=== PATIENT | female | born 1955 ===

== ENCOUNTER 2019-11-30 10:21 | Outpatient (REF) | payer MEDICARE, MEDICAID, SELFPAY ==
--- NOTE | 2019-11-30 10:28 | EMG_ITS ---
Bilateral median and ulnar motor and sensory studies were performed. Bilateral radial sensory studies were performed and paraspinal muscles were tested. IMPRESSION: Mild right median neuropathy across carpal tunnel. Otherwise, this study was unremarkable with no evidence of radiculopathy. MD PUSHPA Chiang/JASON / [phone]
== END 2019-11-30 10:22 | disposition home or self-care (01) ==
LOC: HO.NEURO 10:21
PROVIDERS: PCP Internal Medicine; Visit Provider Internal Medicine
DX: R20.0 Anesthesia of skin (principal)
CPT/HCPCS: 95860; 95861; 95886; 95911

== ENCOUNTER → 2020-01-18 08:42 | Outpatient (BNVA) | payer MEDICARE, MEDICAID, SELFPAY | PROVIDERS: PCP Internal Medicine; Referring Provider Internal Medicine; Visit Provider Nurse Practitioner | DX: K59.04 Chronic idiopathic constipation (principal); K21.9 Gastro-esophageal reflux disease without esophagitis; M46.1 Sacroiliitis, not elsewhere classified; F17.210 Nicotine dependence, cigarettes, uncomplicated; Z79.899 Other long term (current) drug therapy; Z79.891 Long term (current) use of opiate analgesic | CPT/HCPCS: Q3014 ==

== ENCOUNTER 2020-03-04 08:02 | Outpatient (REF) | payer MEDICARE, MEDICAID, SELFPAY ==
--- NOTE | 2020-03-04 08:15 | ECG_ITS ---
Test Reason : CP UNSPECIFIED Blood Pressure : / mmHG Vent. Rate : 076 BPM Atrial Rate : 076 BPM P-R Int : 146 ms QRS Dur : 076 ms QT Int : 388 ms P-R-T Axes : 041 028 049 degrees QTc Int : 436 ms Normal sinus rhythm Normal ECG When compared with ECG of 28-JUN-2017 14:20, No significant change was found Referred By: Grazyna Mcgraw Electronically Signed By:Chris Fuller
[2020-03-04 09:04] LABS: Alanine Aminotransferase 21 U/L (0-31); Albumin Level 4.2 g/dL (3.5-5.0); Alkaline Phosphatase 84 U/L (39-117); Anion Gap 11 (12-20); Aspartate Amino Transferase 20 U/L (5-31); Bilirubin Total 0.4 mg/dL (0.0-1.0); Blood Urea Nitrogen 14 mg/dL (9-16); Calcium 8.8 mg/dL (8.4-10.2); Carbon Dioxide 30 mmol/L (22-29); Chloride 103 mmol/L (96-108); Cholesterol 244 mg/dL; Estimated Glomerular Filt Rate > 60; Glucose Fasting 97 mg/dL (60-99); HDL Cholesterol 60 mg/dL; LDL Cholesterol Calculated 144 mg/dl; Potassium 4.4 mmol/l (3.3-5.1); Sodium 140 mmol/L (135-145); Total Protein 6.7 g/dL (6.5-8.0); Triglycerides 203 mg/dL
== END 2020-03-04 08:03 | disposition home or self-care (01) ==
LOC: HO.LAB 08:02
PROVIDERS: Visit Provider Internal Medicine
DX: E78.5 Hyperlipidemia, unspecified (principal); R07.9 Chest pain, unspecified
CPT/HCPCS: 36415; 80053; 80061; 93005

== ENCOUNTER → 2020-04-09 08:57 | Outpatient (BNVA) | payer MEDICARE, MEDICAID, SELFPAY | PROVIDERS: PCP Internal Medicine; Visit Provider Nurse Practitioner | DX: Z13.89 Encounter for screening for other disorder (principal) | CPT/HCPCS: Q3014 ==

== ENCOUNTER 2020-05-23 10:02 | Outpatient (REF) | payer OTHER, SELFPAY ==
--- NOTE | ~2020-05-23 | MM_ITS ---
EXAMINATION: MM SCREENING DIGITAL BREAST TOMOSYNTHESIS, BILATERAL CLINICAL INFORMATION: Screening. Asymptomatic. The lifetime risk of breast cancer based on the Tyrer-Cuzick Model is 4%. COMPARISON: Mammography: 04/22/2019, 10/30/2017, 08/24/2016 TECHNIQUE: Digital breast tomosynthesis is performed in both the craniocaudal and mediolateral oblique views along with computer-aided detection (CAD). Synthesized 2D images are generated from the tomosynthesis. FINDINGS: There are scattered areas of fibroglandular density (ACR BI-RADS breast composition Category b). There are no significant masses, abnormal calcifications, or other abnormalities. Parenchymal pattern is similar to prior studies. No developing density. No significant changes. MM/MM tomosynthesis screening BI IMPRESSION: No mammographic evidence of malignancy. ASSESSMENT: BI-RADS 1: Negative RECOMMENDATION: Routine annual mammography screening. This patient's information was entered into a reminder system with a target due date for their next mammogram.
== END 2020-05-23 10:03 | disposition home or self-care (01) ==
LOC: HO.MAMMO 10:02
PROVIDERS: Visit Provider Internal Medicine
DX: Z12.31 Encounter for screening mammogram for malignant neoplasm of breast (principal)
CPT/HCPCS: 77063; 77067

== ENCOUNTER 2020-06-25 09:02 | Outpatient (REF) | payer OTHER, SELFPAY ==
[2020-06-25 10:21] LABS: Alanine Aminotransferase 13 U/L (0-31); Albumin Level 4.1 g/dL (3.5-5.0); Alkaline Phosphatase 77 U/L (39-117); Anion Gap 12 (12-20); Aspartate Amino Transferase 16 U/L (5-31); Bilirubin Total 0.4 mg/dL (0.0-1.0); Blood Urea Nitrogen 13 mg/dL (9-16); Calcium 8.9 mg/dL (8.4-10.2); Carbon Dioxide 28 mmol/L (22-29); Chloride 106 mmol/L (96-108); Cholesterol 228 mg/dL; Estimated Glomerular Filt Rate > 60; Glucose Fasting 99 mg/dL (60-99); HDL Cholesterol 59 mg/dL; LDL Cholesterol Calculated 133 mg/dl; Potassium 4.6 mmol/L (3.3-5.1); Sodium 141 mmol/L (135-145); Total Protein 6.7 g/dL (6.5-8.0); Triglycerides 183 mg/dL
[2020-06-30 13:37] LABS: Vitamin D 25-OH, D2 <4 ng/mL; Vitamin D 25-OH, D3 29 ng/mL; Vitamin D 25-OH, Total 29 ng/mL (30-100)
== END 2020-06-25 09:03 | disposition home or self-care (01) ==
LOC: HO.LAB 09:02
PROVIDERS: PCP Internal Medicine; Visit Provider Internal Medicine
DX: E78.5 Hyperlipidemia, unspecified (principal); E55.9 Vitamin D deficiency, unspecified
CPT/HCPCS: 36415; 80053; 80061; 82306

== ENCOUNTER 2020-07-30 08:15 | Outpatient (REF) | payer OTHER, SELFPAY ==
--- NOTE | ~2020-07-30 | XR_ITS ---
EXAMINATION: XR SHOULDER, RIGHT CLINICAL INFORMATION: Right shoulder pain. COMPARISON: Radiographs right shoulder 06/27/2019. TECHNIQUE: The right shoulder is imaged in 4 views. FINDINGS: There is no fracture or dislocation or destructive process. The glenohumeral joint is normal. There are no visible rotator cuff calcifications. There are borderline degenerative changes acromioclavicular joint. No erosive change. Acromioclavicular alignment normal. XR/XR shoulder RT min 2V IMPRESSION: Borderline degenerative changes acromioclavicular joint. No visible rotator cuff calcifications.
== END 2020-07-30 08:16 | disposition home or self-care (01) ==
LOC: HO.XRAY 08:15
PROVIDERS: PCP Internal Medicine; Visit Provider Internal Medicine
DX: M25.511 Pain in right shoulder (principal)
CPT/HCPCS: 73030

== ENCOUNTER 2020-07-31 13:07 | Outpatient (REF) | payer OTHER, SELFPAY ==
--- NOTE | ~2020-07-31 | XR_ITS ---
EXAMINATION: XR HIP, RIGHT CLINICAL INFORMATION: Pain COMPARISON: Previous x-ray September 2012 TECHNIQUE: Two views of the right hip. FINDINGS: Bone alignment is normal. No fracture or dislocation is seen. The soft tissues are unremarkable. There are postsurgical changes to the lower lumbar spine. XR/XR hip RT min 2V IMPRESSION: Normal-appearing right hip.
== END 2020-07-31 13:08 | disposition home or self-care (01) ==
LOC: HO.XRAY 13:07
PROVIDERS: PCP Internal Medicine; Visit Provider Internal Medicine
DX: M25.551 Pain in right hip (principal)
CPT/HCPCS: 73502

== ENCOUNTER 2020-09-03 12:42 | Outpatient (REF) | payer OTHER, SELFPAY ==
--- NOTE | ~2020-09-03 | XR_ITS ---
EXAMINATION: XR CERVICAL SPINE CLINICAL INFORMATION: Cervicalgia. COMPARISON: 02/16/2019 TECHNIQUE: 3 views of the cervical spine were obtained. FINDINGS: No abnormal prevertebral soft tissue swelling is seen. No acute cervical spine fracture. Disc spaces are maintained. There is normal alignment. XR/XR cervical spine 3V IMPRESSION: No significant cervical spine abnormality appreciated.
== END 2020-09-03 12:43 | disposition home or self-care (01) ==
LOC: HO.XRAY 12:42
PROVIDERS: PCP Internal Medicine; Visit Provider Nurse Practitioner Family
DX: M54.2 Cervicalgia (principal); G89.29 Other chronic pain; M19.019 Primary osteoarthritis, unspecified shoulder; M25.511 Pain in right shoulder; M54.16 Radiculopathy, lumbar region
CPT/HCPCS: 72040; 99202

== ENCOUNTER 2020-10-01 10:25 | Outpatient (REF) | payer OTHER, SELFPAY ==
--- NOTE | ~2020-10-01 | MR_ITS ---
EXAMINATION: MR LUMBAR SPINE WITHOUT CONTRAST CLINICAL INFORMATION: Radiculopathy, lumbar region. COMPARISON: None TECHNIQUE: MRI of the lumbar spine was obtained using routine sequences without contrast. FINDINGS: There are postoperative findings related to posterior decompression at L4-L5 and interbody fusion at L4-L5 and L5-S1. Posterior arthrodesis changes are also noted. The lumbar vertebral bodies maintain normal heights. The alignment appears preserved allowing for trace retrolisthesis of L2 on L3. The disc heights are maintained. There is mild to moderate dextroscoliotic curvature centered at the L2-L3 level where there is mild marrow edema along the left aspect of the endplates. The distal spinal cord appears normal. The conus medullaris terminates normally at the L1 level. The extraspinal soft tissues are within normal limits allowing for the operative changes. SPINAL LEVELS: L1-L2: No posterior disc abnormality. No spinal canal or neural foraminal stenosis. L2-L3: Minimal disc bulging with mild facet arthropathy. Mild narrowing of the left subarticular zone. Left foraminal protrusion contacts the traversing left L3 and exiting left L2 nerve root. L3-L4: Disc bulging with ligamentum flavum infolding moderate facet arthropathy. Mild spinal canal stenosis. Mild narrowing of the neural foramina without definite foraminal nerve root compression. L4-L5: Posterior decompression with interbody fusion. No spinal canal stenosis. Mild narrowing of the neural foramina without foraminal nerve root compression. L5-S1: Interbody fusion. No spinal canal or significant neural foraminal stenosis. MR/MR lumbar spine wo con IMPRESSION: Posterior decompression changes seen at L4-L5 and interbody fusion seen at L4-L5 and L5-S1. No significant narrowing of the spinal canal. At L2-L3 there is left-sided subarticular/foraminal protrusion which contacts the traversing left L3 and exiting left L2 nerve roots. Additional milder spondylotic changes are noted above.
== END 2020-10-01 10:26 | disposition home or self-care (01) ==
LOC: HO.MRI 10:25
PROVIDERS: PCP Internal Medicine; Visit Provider Nurse Practitioner Family
DX: M54.16 Radiculopathy, lumbar region (principal)
CPT/HCPCS: 72148

== ENCOUNTER → 2020-10-22 09:12 | Outpatient (BNVA) | payer OTHER, SELFPAY | PROVIDERS: PCP Internal Medicine; Visit Provider Nurse Practitioner Family | DX: M54.2 Cervicalgia (principal); G89.29 Other chronic pain; M19.019 Primary osteoarthritis, unspecified shoulder; M25.511 Pain in right shoulder; M54.16 Radiculopathy, lumbar region | CPT/HCPCS: Q3014 ==

== ENCOUNTER → 2020-11-01 14:21 | Outpatient (BNVA) | payer OTHER, SELFPAY | PROVIDERS: PCP Internal Medicine; Visit Provider Nurse Practitioner | CPT/HCPCS: Q3014 ==

== ENCOUNTER 2021-01-23 15:12 | Outpatient (REF) | payer OTHER, SELFPAY ==
[2021-01-23 15:38] LABS: COVID-19 Test Negative (Negative)
== END 2021-01-23 15:13 | disposition home or self-care (01) ==
LOC: HO.LAB 15:12
PROVIDERS: Visit Provider Internal Medicine
DX: Z20.822 Contact with and (suspected) exposure to COVID-19 (principal)
CPT/HCPCS: 36415; 87635; C9803

== ENCOUNTER 2021-01-30 11:30 | Outpatient (REF) | payer OTHER, SELFPAY ==
[2021-01-30 15:12] LABS: COVID-19 Test Negative (Negative); IDNOW Serial# 16C4AD1C
== END 2021-01-30 11:31 | disposition home or self-care (01) ==
LOC: HO.LAB 11:30
PROVIDERS: Visit Provider Internal Medicine
DX: Z20.822 Contact with and (suspected) exposure to COVID-19 (principal)
CPT/HCPCS: 36415; 87635; C9803

== ENCOUNTER 2021-03-03 15:56 | Outpatient (REF) | payer OTHER, SELFPAY ==
--- NOTE | ~2021-03-03 | XR_ITS ---
EXAMINATION: XR MANDIBLE CLINICAL INFORMATION: Tinnitus COMPARISON: None TECHNIQUE: 4 views of the mandible were obtained. FINDINGS: Bone alignment is normal. No fracture or dislocation is seen. The temporomandibular joints are normal. The visualized paranasal sinuses are clear. Visualized skull is normal appearing. Soft tissues are normal. XR/XR mandible <4V IMPRESSION: Normal mandible.
== END 2021-03-03 15:57 | disposition home or self-care (01) ==
LOC: HO.XRAY 15:56
PROVIDERS: PCP Internal Medicine; Visit Provider Internal Medicine
DX: A35 Other tetanus (principal)
CPT/HCPCS: 70100

== ENCOUNTER → 2021-05-01 09:56 | Outpatient (BNVA) | payer OTHER, SELFPAY | PROVIDERS: PCP Internal Medicine; Referring Provider Internal Medicine; Visit Provider Nurse Practitioner | DX: K59.04 Chronic idiopathic constipation (principal); K21.9 Gastro-esophageal reflux disease without esophagitis; M26.609 Unspecified temporomandibular joint disorder, unspecified side; R63.4 Abnormal weight loss | CPT/HCPCS: 99212 ==

== ENCOUNTER 2021-05-09 14:51 | Outpatient (REF) | payer OTHER, SELFPAY ==
--- NOTE | ~2021-05-09 | MR_ITS ---
EXAMINATION: MR TEMPOROMANDIBULAR JOINT, BILATERAL CLINICAL INFORMATION: Right-sided temporomandibular joint pain with limited range of motion. Right-sided temporomandibular joint pain, facial/ear pain, muscle pain, limited movement. COMPARISON: Mandibular radiographs dated 03/03/2021. TECHNIQUE: MR imaging of the bilateral temporomandibular joints was performed using a standard protocol on a high-field strength 1.5 Maura magnet. Static imaging was performed in the closed and open-mouth positions. Patient declined kinematic imaging due to pain. FINDINGS: Left temporomandibular joint: In the closed mouth projection, the articular disc is appropriately positioned between the condyle and the articular eminence. No evidence of anterior displacement. No significant change in position on open-mouth images. The posterior disc is slightly attenuated which could represent normal variation versus a chronic partial tear. Mild sclerosis of the articular eminence. No marrow edema. Right temporomandibular joint: In the closed mouth projection, the articular disc is displaced anteriorly and located inferior to the articular eminence and anterior to the mandibular condyle. The posterior aspect of the disc is attenuated, consistent with degenerative tearing. No significant change in position on open-mouth images with minimal motion. Sclerosis of the articular eminence as well as mild bony remodeling of the mandibular condyle with articular cartilage loss and underlying marrow edema.
== END 2021-05-09 14:52 | disposition home or self-care (01) ==
LOC: HO.MRI 14:51
PROVIDERS: PCP Internal Medicine; Visit Provider Nurse Practitioner Acute Care
DX: Z13.89 Encounter for screening for other disorder (principal)

== ENCOUNTER 2021-05-12 15:47 | Outpatient (REF) | payer OTHER, SELFPAY ==
--- NOTE | ~2021-05-12 | MR_ITS ---
EXAMINATION: MR TEMPOROMANDIBULAR JOINT, BILATERAL CLINICAL INFORMATION: Right-sided temporomandibular joint pain with limited range of motion. Right-sided temporomandibular joint pain, facial/ear pain, muscle pain, limited movement. COMPARISON: Mandibular radiographs dated 03/03/2021. TECHNIQUE: MR imaging of the bilateral temporomandibular joints was performed using a standard protocol on a high-field strength 1.5 Maura magnet. Static imaging was performed in the closed and open-mouth positions. Patient declined kinematic imaging due to pain. FINDINGS: Left temporomandibular joint: In the closed mouth projection, the articular disc is appropriately positioned between the condyle and the articular eminence. No evidence of anterior displacement. No significant change in position on open-mouth images. The posterior disc is slightly attenuated which could represent normal variation versus a chronic partial tear. Mild sclerosis of the articular eminence. No marrow edema. Right temporomandibular joint: In the closed mouth projection, the articular disc is displaced anteriorly and located inferior to the articular eminence and anterior to the mandibular condyle. The posterior aspect of the disc is attenuated, consistent with degenerative tearing. No significant change in position on open-mouth images with minimal motion. Sclerosis of the articular eminence as well as mild bony remodeling of the mandibular condyle with articular cartilage loss and underlying marrow edema. MR/MR TMJ wo con IMPRESSION: Patient unable to significantly open their mouth due to discomfort. Kinematic images not obtained. 1. Anterior displacement of the right temporomandibular joint articular disc with significant posterior attenuation, consistent with degenerative tearing. Moderate degenerative arthritis within the right temporomandibular joint with marrow edema in the mandibular condyle. 2. Appropriately positioned left temporomandibular joint articular disc with mild posterior attenuation which may represent normal variation versus a chronic partial tear. Mild degenerative arthritis of the left temporomandibular joint.
== END 2021-05-12 15:48 | disposition home or self-care (01) ==
LOC: HO.MRI 15:47
PROVIDERS: PCP Internal Medicine; Visit Provider Nurse Practitioner Acute Care
DX: M26.621 Arthralgia of right temporomandibular joint (principal); R51.9 Headache, unspecified; H92.01 Otalgia, right ear; M79.10 Myalgia, unspecified site; M26.641 Arthritis of right temporomandibular joint
CPT/HCPCS: 70336

== ENCOUNTER 2021-05-27 11:05 | Outpatient (REF) | payer OTHER, SELFPAY ==
--- NOTE | ~2021-05-27 | MM_ITS ---
EXAMINATION: MM SCREENING DIGITAL BREAST TOMOSYNTHESIS, BILATERAL CLINICAL INFORMATION: Screening. Asymptomatic. The lifetime risk of breast cancer based on the Tyrer-Cuzick Model is 4%. COMPARISON: Mammography: 05/23/2020, 04/22/2019, 10/30/2017 TECHNIQUE: Digital breast tomosynthesis is performed in both the craniocaudal and mediolateral oblique views along with computer-aided detection (CAD). Synthesized 2D images are generated from the tomosynthesis. FINDINGS: There are scattered areas of fibroglandular density (ACR BI-RADS breast composition Category b). There are no significant masses, abnormal calcifications, or other abnormalities. There are no significant changes from prior studies. Parenchymal pattern is similar to previous exams. There is no architectural abnormality. The axilla and skin contours are unremarkable. MM/MM tomosynthesis screening BI IMPRESSION: No mammographic evidence of malignancy. ASSESSMENT: BI-RADS 1: Negative RECOMMENDATION: Routine annual mammography screening. This patient's information was entered into a reminder system with a target due date for their next mammogram.
== END 2021-05-27 11:06 | disposition home or self-care (01) ==
LOC: HO.MAMMO 11:05
PROVIDERS: PCP Internal Medicine; Visit Provider Internal Medicine
DX: Z12.31 Encounter for screening mammogram for malignant neoplasm of breast (principal)
CPT/HCPCS: 77063; 77067

== ENCOUNTER 2021-06-05 11:32 | Outpatient (REF) | payer OTHER, SELFPAY ==
[2021-06-05 12:18] LABS: COVID-19 Test Negative (Negative)
== END 2021-06-05 11:33 | disposition home or self-care (01) ==
LOC: HO.LAB 11:32
PROVIDERS: Visit Provider Internal Medicine
DX: Z20.822 Contact with and (suspected) exposure to COVID-19 (principal)
CPT/HCPCS: 87635; C9803

== ENCOUNTER → 2021-06-26 10:48 | Outpatient (BNVA) | payer OTHER, SELFPAY | PROVIDERS: PCP Internal Medicine; Referring Provider Internal Medicine; Visit Provider Nurse Practitioner | DX: K59.04 Chronic idiopathic constipation (principal); K21.9 Gastro-esophageal reflux disease without esophagitis; R63.4 Abnormal weight loss | CPT/HCPCS: 99212 ==

== ENCOUNTER → 2021-08-07 10:49 | Outpatient (BNVA) | payer OTHER, SELFPAY | PROVIDERS: PCP Internal Medicine; Visit Provider Nurse Practitioner | DX: K59.04 Chronic idiopathic constipation (principal); K21.9 Gastro-esophageal reflux disease without esophagitis; Z79.899 Other long term (current) drug therapy | CPT/HCPCS: 99212 ==

== ENCOUNTER 2021-10-31 08:25 | Outpatient (REF) | payer OTHER, SELFPAY ==
[2021-10-31 09:29] LABS: Alanine Aminotransferase 13 U/L (0-31); Albumin Level 3.9 g/dL (3.5-5.0); Alkaline Phosphatase 72 U/L (39-117); Anion Gap 15 (12-20); Aspartate Amino Transferase 18 U/L (5-31); Bilirubin Total 0.4 mg/dL (0.0-1.0); Blood Urea Nitrogen 10 mg/dL (9-16); Calcium 9.3 mg/dL (8.4-10.2); Carbon Dioxide 27 mmol/L (22-29); Chloride 104 mmol/L (96-108); Cholesterol 182 mg/dL; Estimated Glomerular Filt Rate > 60; Glucose Fasting 91 mg/dL (60-99); HDL Cholesterol 62 mg/dL; LDL Cholesterol Calculated 100 mg/dl; Potassium 4.2 mmol/L (3.3-5.1); Sodium 142 mmol/L (135-145); Total Protein 6.3 g/dL (6.5-8.0); Triglycerides 101 mg/dL
[2021-10-31 09:51] LABS: Vitamin D 25-OH Total 39.1 ng/mL (>30)
== END 2021-10-31 08:26 | disposition home or self-care (01) ==
LOC: HO.LAB 08:25
PROVIDERS: PCP Internal Medicine; Visit Provider Internal Medicine
DX: M26.609 Unspecified temporomandibular joint disorder, unspecified side (principal); E78.5 Hyperlipidemia, unspecified; E55.9 Vitamin D deficiency, unspecified
CPT/HCPCS: 36415; 80053; 80061; 82306

== ENCOUNTER → 2021-11-06 12:03 | Outpatient (BNVA) | payer OTHER, SELFPAY | PROVIDERS: PCP Internal Medicine; Visit Provider Nurse Practitioner | DX: E78.5 Hyperlipidemia, unspecified (principal); K21.9 Gastro-esophageal reflux disease without esophagitis; K59.04 Chronic idiopathic constipation; S03.00XA Dislocation of jaw, unspecified side, initial encounter | CPT/HCPCS: 99212 ==

== ENCOUNTER 2021-11-27 08:34 | Outpatient (REF) | payer OTHER, SELFPAY ==
--- NOTE | ~2021-11-27 | XR_ITS ---
EXAMINATION: XR MANDIBLE CLINICAL INFORMATION: TMJ pain COMPARISON: 03/03/2021 TECHNIQUE: 4 views of the mandible were obtained. FINDINGS: There are no fractures or dislocations. No bone, joint or soft tissue abnormality is demonstrated. XR/XR mandible min 4V IMPRESSION: Unremarkable examination.
[2021-11-27 11:12] LABS: Appearance Urine Clear; Color Urine Yellow; Glucose Urine UA Negative (Negative); Leukocyte Esterase Urine Negative (Negative); Nitrite Urine Negative (Negative); PH 6.5 (5.0-9.0); Specific Gravity - Urine 1.015 (1.005-1.025); Urine Blood Negative (Negative); Urine Ketones Negative (Negative); Urine Protein Negative (Neg-Trace)
== END 2021-11-27 08:35 | disposition home or self-care (01) ==
LOC: HO.XRAY 08:34
PROVIDERS: PCP Internal Medicine; Visit Provider Internal Medicine
DX: M26.629 Arthralgia of temporomandibular joint, unspecified side (principal); G89.29 Other chronic pain; R30.0 Dysuria; M26.69 Other specified disorders of temporomandibular joint
CPT/HCPCS: 70110; 81003

== ENCOUNTER 2021-12-11 11:07 | Outpatient (REF) | payer OTHER, SELFPAY ==
--- NOTE | ~2021-12-11 | MR_ITS ---
EXAMINATION: MR TEMPOROMANDIBULAR JOINT, BILATERAL CLINICAL INFORMATION: Arthralgia of the temporal mandibular joint. Patient reports surgery on right TMJ to repair tear. COMPARISON: Prior MRI of the temporal mandibular joints May 2021 TECHNIQUE: MRI of the temporal mandibular joints was performed on a high-field MRI scanner in the open and closed mouth position. Kinematic imaging also performed FINDINGS: RIGHT TEMPORAL MANDIBULAR JOINT: Postsurgical changes with metallic artifact noted partially obscuring tissues and evaluation. The alignment of the joint appears normal in both the open and closed mouth positions. The articular disc is not well defined on either sequence. There is no joint effusion. There may be some subtle flattening and irregularity of the condylar head similar to prior, compatible with arthrosis. Surrounding tissues are unremarkable. LEFT TEMPOROMANDIBULAR JOINT: The disc is anteriorly displaced in both the open and closed mouth positions compatible with internal derangement. There is also some subtle flattening of the posterior aspect of the condylar head most evident on the kinematic series. Findings compatible with at least mild arthrosis which is more conspicuous than on the prior examination. Overall at least mild arthrosis. No effusion. Surrounding soft tissues are unremarkable. MR/MR TMJ wo con IMPRESSION: 1. Left temporomandibular joint: Internal derangement of the left temporomandibular joint. Mild arthrosis. 2. Right Temporal Mandibular Joint: Postsurgical changes of the right temporomandibular joint. Incompletely evaluated because of artifact. Arthrosis likely unchanged. Articular disc is not visualized likely in part related to the postsurgical change. 3. Mild arthrosis of the right temporomandibular joint.
== END 2021-12-11 11:08 | disposition home or self-care (01) ==
LOC: HO.MRI 11:07
PROVIDERS: Visit Provider Internal Medicine
DX: M26.69 Other specified disorders of temporomandibular joint (principal); G89.29 Other chronic pain; M26.622 Arthralgia of left temporomandibular joint
CPT/HCPCS: 70336

== ENCOUNTER → 2022-05-05 09:48 | Outpatient (BNVA) | payer OTHER, SELFPAY | PROVIDERS: PCP Internal Medicine; Visit Provider Nurse Practitioner | DX: K59.04 Chronic idiopathic constipation (principal); K21.9 Gastro-esophageal reflux disease without esophagitis; M26.609 Unspecified temporomandibular joint disorder, unspecified side; M26.629 Arthralgia of temporomandibular joint, unspecified side; G89.29 Other chronic pain | CPT/HCPCS: 99212 ==

== ENCOUNTER 2022-05-30 09:55 | Outpatient (REF) | payer OTHER, SELFPAY ==
--- NOTE | ~2022-05-30 | MM_ITS ---
EXAMINATION: MM SCREENING DIGITAL BREAST TOMOSYNTHESIS, BILATERAL CLINICAL INFORMATION: Screening. Asymptomatic. The lifetime risk of breast cancer based on the Tyrer-Cuzick Model is 4%. COMPARISON: Mammography: 05/27/2021, 05/23/2020, 04/22/2019, 10/30/2017 TECHNIQUE: Digital breast tomosynthesis is performed in both the craniocaudal and mediolateral oblique views along with computer-aided detection (CAD). Synthesized 2D images are generated from the tomosynthesis. FINDINGS: There are scattered areas of fibroglandular density (ACR BI-RADS breast composition Category b). There are no significant masses, abnormal calcifications, or other abnormalities. Parenchymal pattern is similar to prior studies. There is no developing density or architectural abnormality. The axilla and skin contours are unremarkable. No significant changes. MM/MM tomosynthesis screening BI IMPRESSION: No mammographic evidence of malignancy. ASSESSMENT: BI-RADS 1: Negative RECOMMENDATION: Routine annual mammography screening. This patient's information was entered into a reminder system with a target due date for their next mammogram.
== END 2022-05-30 09:56 | disposition home or self-care (01) ==
LOC: HO.MAMMO 09:55
PROVIDERS: PCP Internal Medicine; Visit Provider Internal Medicine
DX: Z12.31 Encounter for screening mammogram for malignant neoplasm of breast (principal)
CPT/HCPCS: 77063; 77067

== ENCOUNTER 2022-06-03 13:39 | Outpatient (REF) | payer OTHER, SELFPAY ==
--- NOTE | ~2022-06-03 | XR_ITS ---
EXAMINATION: XR MANDIBLE CLINICAL INFORMATION: TM joint disorder. COMPARISON: None available. TECHNIQUE: 4 views of the mandible were obtained. FINDINGS: There are no fractures or dislocations. No bone, joint or soft tissue abnormality is demonstrated. XR/XR mandible <4V IMPRESSION: Unremarkable mandible examination.
== END 2022-06-03 13:40 | disposition home or self-care (01) ==
LOC: HO.XRAY 13:39
PROVIDERS: PCP Internal Medicine; Visit Provider Internal Medicine
DX: M26.609 Unspecified temporomandibular joint disorder, unspecified side (principal)
CPT/HCPCS: 70100

== ENCOUNTER 2022-11-11 10:03 | Outpatient (AMB) | payer OTHER, SELFPAY ==
--- NOTE | 2022-11-11 10:08 | A.OFFPC_ITS ---
Vital Signs 11/11/22 10:09 Height 5 ft 1 in Weight 107 lb BMI 20.2 BP 120/70 Blood Pressure Location Lt brachial Position Sitting Pulse 76 Pulse Source Auscultation Intake Visit Reasons: Physical Exam Intake Note: Patient here for a physical exam, ? UTI Blunger Required: No Accompanied by: Self / Same As Patient Allergies mold Allergy (Intermediate, Verified 11/11/22 10:23) Hives dust Allergy (Intermediate, Uncoded 11/11/22 10:23) sneeze, watery eyes food sensitivities i.e. banana Allergy (Intermediate, Uncoded 11/11/22 10:23) rash pollens Allergy (Intermediate, Uncoded 11/11/22 10:23) sneeze, watery eyes Medication List - Last Reconciled 11/11/22 by Grazyna Mcgraw MD albuterol sulfate 90 mcg/actuation 2 puffs inhalation Q6-8H 30 days alprazolam 0.5 mg PO BID PRN 30 days bisacodyl (Dulcolax (bisacodyl)) 10 mg PO BEDTIME PRN calcium carbonate-vitamin D3 600 mg-12.5 mcg (500 unit) (Calcium 600 with Vitamin D3) 1 cap PO .once a day 90 days cyanocobalamin (vitamin B-12) 1,000 mcg PO DAILY cyclobenzaprine 5 mg PO BID PRN 30 days duloxetine 60 mg PO BID gabapentin 600 mg PO TID hydrocortisone 1% (Anti-Itch (hydrocortisone)) 1 appl topical BID PRN 30 days linaclotide (Linzess) 290 mcg PO QAM 30 days magnesium oxide 500 mg PO DAILY 30 days nortriptyline 10 mg PO BEDTIME 30 days oxycodone 10 mg (2 x 5 mg) PO Q6H PRN 30 days pantoprazole 40 mg PO BID quetiapine 400 mg PO BEDTIME quetiapine 100 mg PO BEDTIME PRN rosuvastatin 10 mg PO .every other day Tobacco use date assessed: 03/05/22 Fall risk assessment: No Falls in past year Last assessed Fall Risk: 11/11/22 Dental Screening Dental Screen Date: 11/11/22 Did you have a dental visit in the last 12 months?: Yes Did you have a dental problem in the last 6 months where you did not have access to dental care?: No Was dental information given to patient?: Patient has dentist HPI HPI Comments History of Present Illness Details This is a 66-year-old female with mild recurrent major depression that comes for her physical exam. Depression with anxiety has been stable medications and this is follow by Psychiatry. Last mammogram was May 2022 and was normal. Last Pap smear was over 3 years ago and this will be done last Pap smears since she is 66 years old. Last colonoscopy was 2018 and had internal hemorrhoids with no polyps. No chest pain or shortness of breath. Still complains of jaw pain. [facility] Medical History TMJ (temporomandibular joint disorder) [place] Mild recurrent major depression SONALI (generalized anxiety disorder) Polyarthralgia Right hip pain Right shoulder pain Depression with anxiety Mild asthma Chest pain Dyslipidemia Fibromyalgia Surgical History (Updated 11/11/22 @ 10:32 by Grazyna Mcgraw MD) TMJ derangement History of mammogram History of bunionectomy History of tubal ligation History of laparoscopic cholecystectomy History of lumbar fusion History of section History of esophagogastroduodenoscopy (EGD) Hx of colonoscopy Family History Father Heart failure Mother Heart problem Brother Stomach tumor (benign) Brother Kidney problem Stroke Brother Myocardial infarction Brother Cerebral brain hemorrhage Heart problem Social History Housing: Apartment Alcohol intake: never Patient Tobacco Use Status: Current everyday Tobacco user Tobacco use type: Cigarette Cigarettes Per Day: 10 e-Cigarette/Vaping Use: Never Used Second Hand Smoke Exposure: No service: No Current occupational status: unemployed Cognitive needs: No Hearing needs: No Vision needs: Yes Questionnaire Thrive Questionnaire Date Thrive assessed: 03/05/22 SONALI-7 AMB Questionnaire SONALI-7 Date SONALI - 7 assessed: 03/05/22 Source: Developed by Drs. Chago Baer, Kassandra Alexander, Prashanth Cisse and colleagues, with an educational jhonatan from [employer] Review of Systems Const All systems reviewed & are unremarkable except as noted in HPI and below Eyes Reports no additional complaints, Denies change in vision and Denies other vis ual disturbances Card Denies chest pain at rest, Denies chest pain with activity, Denies edema, Denies irregular heart rhythm, Denies claudication, Denies dyspnea, Denies dyspnea on exertion, Denies orthopnea, Denies paroxysmal nocturnal dyspnea and Denies slow heart rate Resp Denies cough, Denies dyspnea and Denies dyspnea on exertion GI Denies abdominal pain, Denies change in bowel habits, Denies excessive flatus, Denies nausea and Denies vomiting Denies urinary incontinence, Denies urinary hesitancy and Denies urinary urgency Musc Denies abnormal gait, Denies atrophy, Denies deformity and Denies limited range of motion Skin/Breast Denies bleeding lesions, Denies changing lesions and Denies rash Neuro Denies abnormal gait, Denies behavioral changes, Denies confusion and Denies lack of coordination Psych Denies behavioral changes and Denies confusion Physical exam (Primary Care) Vital Signs: Last Vital Signs BP 120/70 11/11/22 10:09 BMI result Body Mass Index 20.2 Tobacco/Smoking Status: Tobacco use Status Tobacco use date assessed 03/05/22 11/11/22 10:18 Patient Tobacco Use Status Current everyday Tobacco 11/11/22 10:18 Tobacco use type Cigarette 11/11/22 10:18 e-Cigarette/Vaping Use Never Used 11/11/22 10:18 Thrive Assessment: Date of Thrive Assessment Date Thrive assessed 03/05/22 11/11/22 10:18 Const General: No confusion Orientation/consciousness: patient oriented x3 and No confusion HENMT Head: Yes normal to inspection, Yes normocephalic and Yes atraumatic Ears: external ears normal Eyes General: appearance normal, both eyes and all related structures Eyelids: Yes eyelids normal Conjunctivae: conjunctivae normal Neck Neck: Yes normal visual inspection and Yes supple Resp Effort & Inspection: normal respiratory effort Auscultation: clear to auscultation bilaterally Cardio Jugular venous distension: no JVD Rate: regular rate Rhythm: regular rhythm Heart sounds: S1 normal heart sound present and S2 normal heart sound present GI Inspection: Yes normal to inspection Palpation (GI): Soft to palpation and nontender Auscultation: normal bowel sounds Skin General skin exam: no rashes or lesions noted Neuro General: patient oriented x3, no focal motor deficits and No confusion Extrem General: Yes full ROM Psych Appearance: grossly normal Results AMB Urinalysis, Automated UA Leukoctes 2 Patricia/uL Last Edit by Jagdeep Hart, RMA on 11/11/22 10:24 UA Nitrite Positive Last Edit by Jagdeep Hart, RMA on 11/11/22 10:24 UA Urobilinogen 0.2 mg/dL Last Edit by Jagdeep Hart, RMA on 11/11/22 10: 24 UA Protein 15 mg/dL Last Edit by Jagdeep Hart, RMA on 11/11/22 10:24 UA pH 6.0 Last Edit by Jagdeep Hart, RMA on 11/11/22 10:24 UA Blood 10 Ruiz/uL Last Edit by Jagdeep Hart, RMA on 11/11/22 10:24 UA Specific [place] 1.030 Last Edit by Jagdeep Hart, RMA on 11/11/22 10 :24 UA Ketone Positive Last Edit by Jagdeep Hart, RMA on 11/11/22 10:24 UA Bilirubin 2 mg/dL Last Edit by Jagdeep Hart, RMA on 11/11/22 10:24 UA Glucose 0 mg/dL Last Edit by Jagdeep Hart, RMA on 11/11/22 10:24 Assessment and Plan Assessment & Plan (1) Physical exam: Code(s): Z00.00 - Encounter for general adult medical examination without abnormal findings Plan: Repeat in a year. (2) Mild recurrent major depression: Code(s): F33.0 - Major depressive disorder, recurrent, mild Plan: Continue duloxetine and Seroquel. Follow-up with psychiatry. Orders: Orders AMB Urinalysis Automated Today R30.0 - Dysuria Urine Culture Today N39.0 - Urinary tract infection, site not specified UA CC w/rflx Micro + Cult 6 Weeks R30.0 - Dysuria Referrals [employer] Referral Z12.4 - Encounter for screening for malignant neoplasm of cervix Medications: New nitrofurantoin macrocrystal must administer with a meal/food 100 mg PO BID 7 days 14 caps 0RF Refilled oxycodone Partial Fill upon patient request. 10 mg (2 x 5 mg) PO Q6H 30 days PRN 240 tabs 0RF pain cyclobenzaprine 5 mg PO BID 30 days PRN 60 tabs 0RF muscle spasm M26.609 - Unspecified temporomandibular joint disorder, unspecified side Coding Level of Care Code Est Pt Prev Care >65y(40759) Diagnoses Physical exam Z00.00 Mild recurrent major depression F33.0 Time Spent (min) 32
[2022-11-11 10:09] VITALS: BP 120/70; PULSE 76; BMI 20.2
== END 2022-11-11 10:43 | disposition home or self-care (01) ==
PROVIDERS: Visit Provider Internal Medicine
DX: Z00.00 Encounter for general adult medical examination without abnormal findings (principal); F33.0 Major depressive disorder, recurrent, mild; R30.0 Dysuria
CPT/HCPCS: 81003; 99397

== ENCOUNTER 2022-11-11 10:25 | Outpatient (REF) | payer OTHER, SELFPAY | END 2022-11-11 10:26 | disposition home or self-care (01) | LOC: HO.LAB 10:25 | PROVIDERS: Visit Provider Internal Medicine | DX: R30.0 Dysuria (principal) | CPT/HCPCS: 87086; 87088; 87186 ==

== ENCOUNTER 2022-11-24 12:32 | Outpatient (AMB) | payer OTHER, SELFPAY ==
--- NOTE | 2022-11-24 12:36 | MHC.OFFVIS ---
Intake Vital Signs 11/24/22 12:44 Height 5 ft 1 in Weight 109 lb 12.643 oz BMI 20.7 BP 123/69 Blood Pressure Location Rt brachial Position Sitting Pulse 80 Intake Visit Reasons: 6month f/u Intake Note: Patient presents to in office visit today in 6 months follow up of CIC and GERD. CC: Patient reports occasional heartburn. She states medications are helping with constipation. Denies other GI symptoms today. Allergies mold Allergy (Intermediate, Verified 11/11/22 10:23) Hives dust Allergy (Intermediate, Uncoded 11/11/22 10:23) sneeze, watery eyes food sensitivities i.e. banana Allergy (Intermediate, Uncoded 11/11/22 10:23) rash pollens Allergy (Intermediate, Uncoded 11/11/22 10:23) sneeze, watery eyes HPI 6month f/u HPI Details Assessment & Plan (1) Chronic idiopathic constipation: Code(s): K59.04 - Chronic idiopathic constipation Plan: She is still struggling with pain in the jaw area and in the back of her head. She just had 4 injections which has not yet helped. She still can not chew very much w/o pain. She still at times will have pain in stomach, about twice a week and is a heavy, stabbing pain. This will occur at night when she lays down and she uses a heating pad with some relief. She continues on her protonix and in general feels it helps. She has a lot of pain in her shoulders. She carries a heavy purse and was advised by her neurologist to get something like a back pack in stead to decrease shoulder stress. She also continues on her LInzess and senna and is moving her bowels well. ROV 6 mos. (2) GERD (gastroesophageal reflux disease): Code(s): K21.9 - Gastro-esophageal reflux disease without esophagitis Qualifiers: Esophagitis presence: without esophagitis Qualified Code(s): K21.9 - Gastro-esophageal reflux disease without esophagitis (3) TMJ (temporomandibular joint disorder): Code(s): M26.609 - Unspecified temporomandibular joint disorder, unspecified side (4) Chronic TMJ pain: Code(s): M26.629 - Arthralgia of temporomandibular joint, unspecified side; G89.29 - Other chronic pain Medications: Refilled pantoprazole 40 mg PO BID 60 t abs 6RF K21.9 - Gastro-eso phageal reflux dis ease without esoph agitis linaclotide (Linze ss) 290 mcg PO QAM 30 days 30 caps 6RF K59.04 - Chronic i diopathic constipa tion TODAY'S VISIT She recently had a severe UTI with pain and hematuria. She saw her PCP Dr. Gallego and she was tx'ed with nitrofurantoin. IN 5 weeks they will retest her urine. She still has some lower abd pain but she thinks it is r/t this. She continues to move her bowels well with the LInzess and the bisacodyl, and the pantoprazole 40mg bid as well. Her jaw still bothers her when she tries to chew harder things and she still has pain. She does not want to travel to [place] where she had her surgery as the travel is onerous. She does find it easier to eat and her weight is up form 103 to 109 lbs. ROV 6 mos. Colonoscopy not due until 2027. [facility] Medical History TMJ (temporomandibular joint disorder) Lockjaw Mild recurrent major depression SONALI (generalized anxiety disorder) Polyarthralgia Right hip pain Right shoulder pain Depression with anxiety Mild asthma Chest pain Dyslipidemia Fibromyalgia Surgical History TMJ derangement History of mammogram History of bunionectomy History of tubal ligation History of laparoscopic cholecystectomy History of lumbar fusion History of section History of esophagogastroduodenoscopy (EGD) Hx of colonoscopy Family History Father Heart failure Mother Heart problem Brother Stomach tumor (benign) Brother Kidney problem Stroke Brother Myocardial infarction Brother Cerebral brain hemorrhage Heart problem Social History (Reviewed 11/24/22 @ 12:53 by Crystal Cuellar [facility]) Housing: Apartment Alcohol intake: never Patient Tobacco Use Status: Current everyday Tobacco user Tobacco use type: Cigarette Cigarettes Per Day: 10 e-Cigarette/Vaping Use: Never Used Second Hand Smoke Exposure: No service: No Current occupational status: unemployed Cognitive needs: No Hearing needs: No Vision needs: Yes Review of Systems Const Denies fatigue, Denies fever(s), Denies night sweats, Denies poor appetite, Reports weight gain and Denies weight loss Eyes Details: glasses Reports requires corrective lenses ENT Details: Jaw pain Reports Normal hearing present, Denies dental pain, Denies dysphagia, Denies hearing loss, Denies mouth pain, Denies odynophagia, Denies throat swelling, Denies tongue swelling and Reports other (Dentition adequate) Card Reports no additional complaints Resp Reports no additional complaints GI Reports abdominal pain, Denies melena, Denies bloating, Denies hematochezia, Reports constipation, Denies GI cramping, Denies dysphagia, Denies excessive flatus, Denies early satiety, Reports heartburn, Denies diarrhea, Denies nausea, Denies odynophagia, Denies vomiting and Denies hematemesis Reports hematuria Skin/Breast Denies pruritus, Denies lesions, Denies rash and Denies jaundice Neuro Reports Normal hearing present and Denies Abnormal speech present Endo Denies fatigue Aller/Immun Denies throat swelling and Denies tongue swelling Physical Exam Vital Signs: Last Vital Signs Pulse 80 11/24/22 12:44 BP 123/69 11/24/22 12:44 BMI result Body Mass Index 20.7 Const General: cooperative, no acute distress, well developed and well groomed Nutritional Appearance: average body habitus and well nourished Orientation/consciousness: oriented to person, oriented to place and oriented to time Limitations: No language barrier HEENT Head: Yes normocephalic and Yes atraumatic Eyes General: appearance normal, both eyes and all related structures Pupils: Equal, round and reactive pupils present Neck Neck: Yes normal visual inspection and Yes no lymphadenopathy Thyroid: Thyroid normal Resp Effort & Inspection: normal respiratory effort and able to speak in complete sentences Auscultation: clear to auscultation bilaterally Cardio Rate: regular rate Rhythm: regular rhythm Heart sounds: Normal, physiologic split S2 sound present Peripheral pulses: radial pulses present and posterior tibial pulses present GI Inspection: No distended and No Abdominal panniculus present Palpation (GI): Soft to palpation, nontender, no guarding, not rigid and No hepatosplenomegaly present Percussion: Yes normal to percussion Auscultation: normal bowel sounds Rectal Exam - Female: deferred Skin General skin exam: no rashes or lesions noted, turgor normal, skin not dry, no jaundice, No spider nevi and no striae Rashes: no rashes Nails: normal Neuro General: oriented to person, oriented to place and oriented to time Cranial nerves: Yes Equal, round and reactive pupils present and Yes Normal hearing present Speech: No Abnormal speech present Extrem General: Yes normal to inspection, No clubbing, No cyanosis and No edema Psych Appearance: grossly normal and well kempt Mental Status: mental status grossly normal Speech and movement: Normal speech and movement present Affect: normal affect Attitude: cooperative Thought process: Normal thought process present and not confabulating Thought content: Normal thought content present Insight: Fair insight present (Psych) Judgement: Fair judgement present (Psych) Assessment & Plan Assessment & Plan (1) Chronic idiopathic constipation: Code(s): K59.04 - Chronic idiopathic constipation Plan: She recently had a severe UTI with pain and hematuria. She saw her PCP Dr. Gallego and she was tx'ed with nitrofurantoin. IN 5 weeks they will retest her urine. She still has some lower abd pain but she thinks it is r/t this. She continues to move her bowels well with the LInzess and the bisacodyl, and the pantoprazole 40mg bid as well. Her jaw still bothers her when she tries to chew harder things and she still has pain. She does not want to travel to [place] where she had her surgery as the travel is onerous. She does find it easier to eat and her weight is up form 103 to 109 lbs. ROV 6 mos. Colonoscopy not due until 2027. (2) GERD (gastroesophageal reflux disease): Code(s): K21.9 - Gastro-esophageal reflux disease without esophagitis Qualifiers: Esophagitis presence: without esophagitis Qualified Code(s): K21.9 - Gastro-esophageal reflux disease without esophagitis (3) TMJ (dislocation of temporomandibular joint): Code(s): S03.00XA - Dislocation of jaw, unspecified side, initial encounter Medications: Changed From bisacodyl (Dulcolax (bisacodyl)) 10 mg PO BEDTIME PRN To bisacodyl (Dulcolax (bisacodyl)) 10 mg (2 x 5 mg) PO BEDTIME 60 tabs 6RF Refilled linaclotide (Linzess) 290 mcg PO QAM 30 days 30 caps 6RF K59.04 - Chronic idiopathic constipation pantoprazole 40 mg PO BID 60 tabs 6RF K21.9 - Gastro-esophageal reflux disease without esophagitis Coding Level of Care Code Est Pt Level 3 (26310) Diagnoses Chronic idiopathic constipation K59.04 Gastroesophageal reflux disease without esophagitis K21.9 Esophagitis presence: without esophagitis TMJ (dislocation of temporomandibular joint) S03.00XA
[2022-11-24 12:44] VITALS: BP 123/69; PULSE 80; BMI 20.7
== END 2022-11-24 13:16 | disposition home or self-care (01) ==
PROVIDERS: Visit Provider Nurse Practitioner
DX: K59.04 Chronic idiopathic constipation (principal); K21.9 Gastro-esophageal reflux disease without esophagitis; S03.00XA Dislocation of jaw, unspecified side, initial encounter
CPT/HCPCS: 99213

== ENCOUNTER → 2022-11-24 12:32 | Outpatient (BNVA) | payer OTHER, SELFPAY | PROVIDERS: Visit Provider Nurse Practitioner | DX: K59.04 Chronic idiopathic constipation (principal); K21.9 Gastro-esophageal reflux disease without esophagitis; M26.629 Arthralgia of temporomandibular joint, unspecified side; G89.29 Other chronic pain | CPT/HCPCS: 99212 ==

== ENCOUNTER 2022-12-17 08:40 | Outpatient (REF) | payer OTHER, SELFPAY ==
[2022-12-17 10:44] LABS: Appearance Urine Clear; Color Urine Yellow; Glucose Urine UA Negative (Negative); Leukocyte Esterase Urine Negative (Negative); Nitrite Urine Negative (Negative); Specific Gravity - Urine 1.015 (1.005-1.025); Urine Blood Negative (Negative); Urine Ketones Negative (Negative); Urine Protein Negative (Neg-Trace)
== END 2022-12-17 08:41 | disposition home or self-care (01) ==
LOC: HO.LAB 08:40
PROVIDERS: PCP Internal Medicine; Visit Provider Internal Medicine
DX: R30.0 Dysuria (principal)
CPT/HCPCS: 81003

== ENCOUNTER 2023-01-13 10:19 | Outpatient (REF) | payer OTHER, SELFPAY ==
[2023-01-16 04:29] LABS: HPV mRNA E6/E7 rflx Not Detected (Not Detected)
== END 2023-01-13 10:20 | disposition home or self-care (01) ==
LOC: HO.LNP 10:19
PROVIDERS: PCP Internal Medicine; Visit Provider Obstetrics & Gynecology
DX: Z01.419 Encounter for gynecological examination (general) (routine) without abnormal findings (principal); Z11.51 Encounter for screening for human papillomavirus (HPV); N95.0 Postmenopausal bleeding
CPT/HCPCS: 87624; 88142

== ENCOUNTER 2023-01-13 10:19 | Outpatient (AMB) | payer OTHER, SELFPAY ==
[2023-01-13 10:52] VITALS: BP 122/76; BMI 20.4
--- NOTE | 2023-01-13 10:52 | MHC.OFFVIS ---
Intake Vital Signs 01/13/23 10:52 Height 5 ft 1 in Weight 108 lb BMI 20.4 BP 122/76 Intake Visit Reasons: [employer] Annual Casualty Claim Adjuster Required: No Information Interpreted: non-clinical & clinical Telecommunications Cable Jointer: Telecommunications Cable Jointer Present (Nickie BENOIT) Accompanied by: Self / Same As Patient Allergies mold Allergy (Intermediate, Verified 01/13/23 10:57) Hives dust Allergy (Intermediate, Uncoded 01/13/23 10:57) sneeze, watery eyes food sensitivities i.e. banana Allergy (Intermediate, Uncoded 01/13/23 10:57) rash pollens Allergy (Intermediate, Uncoded 01/13/23 10:57) sneeze, watery eyes Post menopausal: Yes HPI HPI Comments History of Present Illness Details Presenting for annual exam. The patient had an episode of vaginal bleeding for 1 week in September 2022 since then vaginal bleeding resolved Last Pap was in 01/22 was negative Last Mammogram was BI-RADS 1 in 05/31 Last Colonoscopy was in 02/25, the recommendation was to repeat in 10 years No recent DEXA scan [facility] Medical History TMJ (temporomandibular joint disorder) [place] Mild recurrent major depression SONALI (generalized anxiety disorder) Polyarthralgia Right hip pain Right shoulder pain Depression with anxiety Mild asthma Chest pain Dyslipidemia Fibromyalgia Surgical History TMJ derangement History of mammogram History of bunionectomy History of tubal ligation History of laparoscopic cholecystectomy History of lumbar fusion History of section History of esophagogastroduodenoscopy (EGD) Hx of colonoscopy Family History Father Heart failure Mother Heart problem Brother Stomach tumor (benign) Brother Kidney problem Stroke Brother Myocardial infarction Brother Cerebral brain hemorrhage Heart problem Social History Housing: Apartment Alcohol intake: never Patient Tobacco Use Status: Current everyday Tobacco user Tobacco use type: Cigarette Cigarettes Per Day: 10 e-Cigarette/Vaping Use: Never Used Second Hand Smoke Exposure: No service: No Current occupational status: unemployed Cognitive needs: No Hearing needs: No Vision needs: Yes Female Reproductive History Menstrual Menopause type: natural Total pregnancies: 4 Full term: 3 Number of Living Children: 3 Date of last pap smear: 02/21/15 Date of Mammogram: 05/30/22 Review of Systems Const All systems reviewed & are unremarkable except as noted in HPI and below Card Reports as per HPI Resp Reports as per HPI GI Reports as per HPI and Reports no additional complaints Reports as per HPI Physical Exam Vital Signs: Last Vital Signs BP 122/76 01/13/23 10:52 BMI result Body Mass Index 20.4 Const General: cooperative, healthy appearing and comfortable Chest Chest palpation & inspection: normal inspection of the chest and normal palpation of entire chest wall Breast/axilla inspection: normal inspection of the breasts and normal inspection of the axillae Breast/axilla palpation: normal palpation of the breasts, normal palpation of the axillae and no axillary lymphadenopathy Resp Effort & Inspection: normal respiratory effort Auscultation: clear to auscultation bilaterally Percussion: percussion normal Cardio Palpation: normal PMI Rate: regular rate Rhythm: regular rhythm Heart sounds: no murmurs and no rubs Peripheral pulses: Peripheral pulses 2+ throughout GI Inspection: Yes normal to inspection Palpation (GI): Soft to palpation, nontender, no guarding, not rigid and No hepatosplenomegaly present Percussion: Yes normal to percussion Auscultation: normal bowel sounds Rectal Exam - Female: deferred General: Yes bladder normal to palpation External Female Exam: No lesion Speculum Exam - Vagina: normal appearance of the vagina, normal palpation, normal vaginal discharge and not erythematous Speculum Exam - Cervix: normal appearance of the cervix and normal palpation Bimanual exam- vagina & uterus: normal bimanual exam, normal palpation, uterine size normal, bladder normal to palpation, consistency normal and normal palpation Bimanual Exam- Adnexa, other: normal adnexae, no masses and no tenderness Assessment & Plan Assessment & Plan (1) Well woman exam: Code(s): Z01.419 - Encounter for gynecological examination (general) (routine) without abnormal findings Plan: Co testing since the patient has not had a recent screening since 2014 Counseled the patient about the recommended dietary allowance of 1200 mg of Calcium & 800 IU of vitamin D. Instructions given the patient to schedule next screening Mammogram in 06/01. Will order DEXA scan . The patient was instructed to perform monthly self-breast exams and to schedule a 2 week DEXA scan follow-up appointment and an annual exam in a year; All questions answered and the patient verbalized understanding. (2) Post-menopausal bleeding: Code(s): N95.0 - Postmenopausal bleeding Plan: Discussed with the patient the differential diagnosis of post menopausal bleeding with normal pelvic exam including but not limited to, endometrial hyperplasia, cancer, polyps and other causes; co testing done, recommended ultrasound to measure the endometrial stripe; discussed with the patient that if the endometrial thickness is 4 mm or less the negative predictive value of endometrial pathology is 99%, otherwise If endometrial thickness is more than 4 mm will proceed with endometrial sampling versus hysteroscopy D&C polypectomy depending on the ultrasound findings. Instructed the patient to schedule an ultrasound follow-up appointment in 2 weeks. All questions answered, the patient verbalized understanding and agreed with the plan. Orders: Orders US pelvic and transvaginal Today N95.0 - Postmenopausal bleeding XR DEXA axial skeleton Today Z78.0 - Asymptomatic menopausal state Coding Level of Care Code New Pt Prev Care >65yr (43864) Diagnoses Well woman exam Z01.419 Post-menopausal bleeding N95.0
== END 2023-01-13 11:41 | disposition home or self-care (01) ==
LOC: HO.HWS 10:19
PROVIDERS: PCP Internal Medicine; Visit Provider Obstetrics & Gynecology
DX: Z01.419 Encounter for gynecological examination (general) (routine) without abnormal findings (principal); N95.0 Postmenopausal bleeding
CPT/HCPCS: 99387

== ENCOUNTER 2023-02-16 10:33 | Outpatient (REF) | payer OTHER, SELFPAY ==
--- NOTE | ~2023-02-16 | US_ITS ---
EXAMINATION: US PELVIS CLINICAL INFORMATION: Postmenopausal bleeding; postmenopausal patient. COMPARISON: Pelvic ultrasound dated 07/08/2017. TECHNIQUE: Ultrasound of the pelvis is performed using both transabdominal and transvaginal transducers along with Doppler. Transvaginal imaging is performed due to inadequate visualization transabdominally. FINDINGS: Uterus: The uterus is anteverted and and anteflexed. The uterus measures 5.8 x 1.9 x 3.0 cm. The double wall endometrial thickness is 2 mm. The uterus is smooth in contour and has normal myometrial echogenicity. No visible fibroid. Adnexa: Both ovaries are visualized. There is normal color flow to the adnexa. There is no ovarian torsion. There is no pelvic ascites or fluid collection. Right ovary measures 4.1 x 4.1 x 4.2 cm, volume 36.9 mL. The right ovary contains a 3.8 cm in maximal diameter benign, simple cyst, for which no imaging follow-up is recommended Left ovary measures 1.5 x 1.4 x 1.1 cm, volume 1.2 mL. US/US pelvic and transvaginal IMPRESSION: A 3.8 cm benign, simple right ovarian cyst is seen, for which no imaging follow-up is recommended. The examination is otherwise unremarkable.
== END 2023-02-16 10:34 | disposition home or self-care (01) ==
LOC: HO.US 10:33
PROVIDERS: PCP Internal Medicine; Visit Provider Obstetrics & Gynecology
DX: N95.0 Postmenopausal bleeding (principal)
CPT/HCPCS: 76830; 76856

== ENCOUNTER 2023-02-26 10:47 | Outpatient (REF) | payer OTHER, SELFPAY ==
--- NOTE | ~2023-02-26 | MM_ITS ---
EXAMINATION: BONE DENSITOMETRY CLINICAL INDICATION: Menopause. COMPARISON: Previous BD dated 11/03/2019 and baseline BD dated 06/03/2010. TECHNIQUE: Using a [employer] DXA System (software version: 13.1) manufactured by [employer], dual-energy x-ray absorptiometry was performed of the lumbar spine and left hip. The images are of good technical quality. Summary results are attached. FINDINGS: LEFT FEMUR, NECK: Current: BMD 0.700 g/cm2, Z-score -0.6, T-score -2.4, osteopenia. Prior: BMD 0.888 g/cm2. Baseline: BMD 0.880 g/cm2. LEFT FEMUR, TOTAL: Current: BMD 0.704 g/cm2, Z-score -0.8, T-score -2.4, osteopenia, 27.6% decrease from previous, 26.1% decrease from baseline (<5% change is not significant). Prior: BMD 0.972 g/cm2. Baseline: BMD 0.952 g/cm2. AP SPINE L1-L3 (excluding L4): The data of L1-L4 has been changed to exclude the L4 vertebral body, because metallic artifact at this level may cause overestimation of lumbar spine density. Current: BMD 0.989 g/cm2, Z-score 0.6, T-score -1.5, osteopenia, 5.1% decrease from previous, 2.7% increase from baseline (<5% change is not significant). Prior: BMD 1.042 g/cm2. Baseline: BMD 0.963 g/cm2. IDENTIFIED RISK FACTORS: Menopause, rheumatoid arthritis, secondary osteoporosis, tobacco use (current smoker). HISTORY OF FRACTURE: None listed. MEDICATIONS: Calcium, vitamin D. MM/XR DEXA axial skeleton IMPRESSION: 1. DIAGNOSIS: Osteopenia based on the lowest T-score value of -2.4 in the femur neck and total femur applying World Health Organization criteria. 2. 10-YEAR FRACTURE RISK PREDICTION, FRAX: Major osteoporotic fracture (clinical spine, forearm, hip or shoulder) 9.8%. Hip fracture 3.6%. 3. Treatment Recommendations: NOF guidelines recommend consideration for treatment in postmenopausal women and men age 50 and older presenting with the following: -A hip or vertebral (clinical or morphometric) fracture. -T-score less than or equal to -2.5 at the femoral neck or spine after appropriate evaluation to exclude secondary causes. -Low bone mass at the hip or spine and a 10-year fracture probability by FRAX of greater than or equal to 3% for hip fracture or greater than or equal to 20% for major osteoporotic fracture based on the [place] adapted WHO algorithm. 4. Other Recommendations: All treatment decisions require clinical judgment and consideration of individual patient factors, including patient preferences, comorbidities, previous drug use, risk factors not captured in the FRAX model (e.g. frailty, falls, vitamin D deficiency, increased bone turnover, interval significant decline in bone density) and possible under or overestimation of fracture risk by FRAX. Additional medical evaluation for secondary cause of low bone mineral density may be appropriate. FUTURE SCAN RECOMMENDATION: People with diagnosed cases of osteoporosis or at high risk for fracture should have regular bone mineral density tests. For patients eligible for Medicare, routine testing is allowed once every 2 years. The testing frequency can be increased to one year for patients who have rapidly progressing disease, those who are receiving or discontinuing medical therapy to restore bone mass, or have additional risk factors.
== END 2023-02-26 10:48 | disposition home or self-care (01) ==
LOC: HO.MAMMO 10:47
PROVIDERS: PCP Internal Medicine; Visit Provider Obstetrics & Gynecology
DX: Z13.820 Encounter for screening for osteoporosis (principal); Z78.0 Asymptomatic menopausal state
CPT/HCPCS: 77080

== ENCOUNTER 2023-04-15 10:38 | Outpatient (REF) | payer OTHER, SELFPAY ==
[2023-04-19 11:53] LABS: CA-125 4 U/mL (<35); Carbohydrate Antigen 19-9 3 U/mL (<34)
== END 2023-04-15 10:39 | disposition home or self-care (01) ==
LOC: HO.LAB 10:38
PROVIDERS: PCP Internal Medicine; Visit Provider Obstetrics & Gynecology
DX: N83.209 Unspecified ovarian cyst, unspecified side (principal); N95.0 Postmenopausal bleeding; Z91.89 Other specified personal risk factors, not elsewhere classified
CPT/HCPCS: 36415; 82378; 86301; 86304; 99212

== ENCOUNTER 2023-04-15 10:38 | Outpatient (AMB) | payer OTHER, SELFPAY ==
--- NOTE | 2023-04-15 10:43 | MHC.OFFVIS ---
Intake Vital Signs 04/15/23 11:14 Height 5 ft 1 in Weight 105 lb 13.15 oz BMI 20.0 BP 118/72 Intake Visit Reasons: Follow up ultra sound , dexa and ? EMB Allergies mold Allergy (Intermediate, Verified 01/13/23 10:57) Hives dust Allergy (Intermediate, Uncoded 01/13/23 10:57) sneeze, watery eyes food sensitivities i.e. banana Allergy (Intermediate, Uncoded 01/13/23 10:57) rash pollens Allergy (Intermediate, Uncoded 01/13/23 10:57) sneeze, watery eyes HPI HPI Comments History of Present Illness Details Presenting for ultrasound follow-up regarding postmenopausal bleeding. No additional episodes of vaginal bleeding. Pelvic ultrasound showed the following: Uterus: The uterus is anteverted and and anteflexed. The uterus measures 5.8 x 1.9 x 3.0 cm. The double wall endometrial thickness is 2 mm. The uterus is smooth in contour and has normal myometrial echogenicity. No visible fibroid. Adnexa: Both ovaries are visualized. There is normal color flow to the adnexa. There is no ovarian torsion. There is no pelvic ascites or fluid collection. Right ovary measures 4.1 x 4.1 x 4.2 cm, volume 36.9 mL. The right ovary contains a 3.8 cm in maximal diameter benign, simple cyst, for which no imaging follow-up is recommended Left ovary measures 1.5 x 1.4 x 1.1 cm, volume 1.2 mL. Co testing was negative In addition, the patient is presenting for follow up regarding DEXA scan results. T score @ spine and femoral Neck respectively were=-1.5 /-2.4 and 10 year FRAX risk = 9.8/3.6% for severe osteoporosis and fracture. [facility] Medical History TMJ (temporomandibular joint disorder) [place] Mild recurrent major depression SONALI (generalized anxiety disorder) Polyarthralgia Right hip pain Right shoulder pain Depression with anxiety Mild asthma Chest pain Dyslipidemia Fibromyalgia Surgical History TMJ derangement History of mammogram History of bunionectomy History of tubal ligation History of laparoscopic cholecystectomy History of lumbar fusion History of section History of esophagogastroduodenoscopy (EGD) Hx of colonoscopy Family History Father Heart failure Mother Heart problem Brother Stomach tumor (benign) Brother Kidney problem Stroke Brother Myocardial infarction Brother Cerebral brain hemorrhage Heart problem Social History Housing: Apartment Alcohol intake: never Patient Tobacco Use Status: Current everyday Tobacco user Tobacco use type: Cigarette Cigarettes Per Day: 10 e-Cigarette/Vaping Use: Never Used Second Hand Smoke Exposure: No service: No Current occupational status: unemployed Cognitive needs: No Hearing needs: No Vision needs: Yes Review of Systems Const All systems reviewed & are unremarkable except as noted in HPI and below Reports as per HPI and Reports no additional complaints GI Reports no additional complaints Reports no additional complaints Assessment & Plan Assessment & Plan (1) Post-menopausal bleeding: Code(s): N95.0 - Postmenopausal bleeding Plan: Discussed with the patient the results of the pelvic ultrasound showing an endometrial stripe thickness of 2 mm. Explained to the patient with an endometrial stripe of 4 mm &/or less, there is a high negative predictive value in detecting endometrial pathology including endometrial hyperplasia, polyps or malignancy. Therefore, there is no indication for endometrial sampling. Discussed with the patient the sensitivity, specificity, and positive and the negative predictive value of using ultrasound in detecting endometrial pathology. The patient was instructed to call if bleeding recurs, will proceed with endometrial sampling out endometrial pathology. All questions were answered and the patient verbalized understanding and agreed with the plan. (2) Ovarian cyst: Code(s): N83.209 - Unspecified ovarian cyst, unspecified side Plan: Discussed with the patient the the finding on a pelvic ultrasound showing a simple ovarian cyst with no evidence of suspicious features, with a size of less than 10 cm. Discussed the patient the limitation of pelvic ultrasound to differentiate between benign and malignant ovarian cyst. Explained to the patient that pelvic Ultrasound characteristics of benign masses include simple appearance: thin, smooth anderson; and the absence of solid components, septations, or internal blood flow on color Doppler ultrasound imaging. These simple cysts are highly likely to be benign in any age group. Studies have shown that spontaneous resolution occurs in more than 2/3 of cases. Simple cysts are almost always universally benign, regardless of menopausal status or cyst size, with malignancy rates in most series of 0?1% . CA 125, CA 19-9 and CEA ovarian cancer serum marker tests, are indicated to evaluate like with of malignancy and need for surgery. Elevated levels in combination with other findings can be useful to distinguish between benign and malignant adnexal masses. Specificity and positive predictive value of CA 125 levels are consistently higher in postmenopausal woman compared to premenopausal woman. Although CA 125 level measurement is Last valuable in predicting cancer risk in premenopausal woman thin in postmenopausal woman extreme values increase suspicion for a malignant process. The overall sensitivity of CA 125 in distinguish in benign from malignant adnexal mass ranges be 61-91 % and negative for active value ranges from 67-90%. Recommended CA 125, CA 19-9 and CEA and repeat ultrasound in 6 months. Instructions given the patient to schedule a 6 months follow-up pelvic ultrasound with follow-up appointment afterwards. All questions answered, the patient verbalized understanding. (3) At high risk for fracture: Code(s): Z91.89 - Other specified personal risk factors, not elsewhere classified Plan: Discussed with the patient the DEXA results and FRAX risk. Discussed with the patient all the options for therapeutic treatment including mechanism of actions, risks and benefits of Bisphosphonates (benefits=osteoporosis prevention; Risks=GERD, osteonecrosis of jaw), Raloxifene, (benefits=osteoporosis prevention and breast ca risk reduction; Risks=DVT), Forteo. The patient decided to go ahead with Fosamax so instructions given to the pt on how to take the med: NPO x 30 minutes, large amount of water , stay upright x 30 minutes, inform her dentist of alendronate intake in case invasive dental work. Also Caltrate+D 600 mg x2/day was recommended to the patient. Orders: Orders CA-125 Today N83.209 - Unspecified ovarian cyst, unspecified side US pelvic and transvaginal 3 Months N83.209 - Unspecified ovarian cyst, unspecified side Carbohydrate Antigen 19-9 Today N83.209 - Unspecified ovarian cyst, unspecified side Carcinoembryonic Antigen Today N83.209 - Unspecified ovarian cyst, unspecified side Medications: New alendronate 70 mg PO QWEEK 14 tabs 3RF Coding Level of Care Code Est Pt Level 3 (15212) Diagnoses Post-menopausal bleeding N95.0 Ovarian cyst N83.209 At high risk for fracture Z91.89
[2023-04-15 11:14] VITALS: BP 118/72
== END 2023-04-15 12:36 | disposition home or self-care (01) ==
LOC: HO.HWS 10:38
PROVIDERS: PCP Internal Medicine; Visit Provider Obstetrics & Gynecology
DX: N95.0 Postmenopausal bleeding (principal); N83.209 Unspecified ovarian cyst, unspecified side; Z91.89 Other specified personal risk factors, not elsewhere classified
CPT/HCPCS: 99213

== ENCOUNTER 2023-05-08 08:15 | Outpatient (REF) | payer OTHER, SELFPAY ==
[2023-05-08 09:27] LABS: Alanine Aminotransferase 13 U/L (0-31); Albumin Level 3.9 g/dL (3.5-5.0); Alkaline Phosphatase 76 U/L (39-117); Anion Gap 10 (12-20); Aspartate Amino Transferase 20 U/L (5-31); Bilirubin Total 0.3 mg/dL (0.0-1.0); Blood Urea Nitrogen 10 mg/dL (9-16); Calcium 8.7 mg/dL (8.4-10.2); Carbon Dioxide 31 mmol/L (22-29); Chloride 103 mmol/L (96-108); Cholesterol 188 mg/dL (<200); Estimated Glomerular Filt Rate > 60; Glucose Fasting 87 mg/dL (60-99); HDL Cholesterol 70 mg/dL (>40); LDL Cholesterol Calculated 103 mg/dL (<100); Potassium 4.2 mmol/L (3.3-5.1); Sodium 140 mmol/L (135-145); Total Protein 6.7 g/dL (6.5-8.0); Triglycerides 77 mg/dL (<150)
== END 2023-05-08 08:16 | disposition home or self-care (01) ==
LOC: HO.LAB 08:15
PROVIDERS: PCP Internal Medicine; Visit Provider Internal Medicine
DX: E78.5 Hyperlipidemia, unspecified (principal); E55.9 Vitamin D deficiency, unspecified
CPT/HCPCS: 36415; 80053; 80061; 82306

== ENCOUNTER 2023-05-13 10:41 | Outpatient (AMB) | payer OTHER, SELFPAY ==
[2023-05-13 10:42] VITALS: BP 128/80; BMI 20.6
--- NOTE | 2023-05-13 10:42 | MHC.PC.OV ---
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 banana Allergy (Intermediate, Uncoded 05/13/23 11:05) rash pollens Allergy (Intermediate, Uncoded 05/13/23 11:05) sneeze, watery eyes Medication List - Last Reconciled 05/13/23 by Grazyna Mcgraw MD albuterol sulfate 90 mcg/actuation 2 puffs inhalation Q6-8H 30 days alendronate 70 mg PO QWEEK alprazolam 0.5 mg PO BID PRN 30 days bisacodyl (Dulcolax (bisacodyl)) 10 mg (2 x 5 mg) PO BEDTIME calcium carbonate-vitamin D3 600 mg-12.5 mcg (500 unit) (Calcium 600 with Vitamin D3) 1 cap PO .once a day 90 days cyanocobalamin (vitamin B-12) 1,000 mcg PO DAILY cyclobenzaprine 5 mg PO BID PRN 30 days duloxetine 60 mg PO BID gabapentin 600 mg PO TID hydrocortisone 1% (Anti-Itch (hydrocortisone)) 1 appl topical BID PRN 30 days linaclotide (Linzess) 290 mcg PO QAM 30 days magnesium oxide 500 mg PO DAILY 30 days oxycodone 10 mg (2 x 5 mg) PO Q6H PRN 30 days pantoprazole 40 mg PO BID quetiapine 400 mg PO BEDTIME quetiapine 100 mg PO BEDTIME PRN rosuvastatin 10 mg PO .every other day Tobacco use date assessed: 05/13/23 Fall risk assessment: No Falls in past year Last assessed Fall Risk: 05/13/23 Dental Screening Dental Screen Date: 05/13/23 Did you have a dental visit in the last 12 months?: Yes Did you have a dental problem in the last 6 months where you did not have access to dental care?: No Was dental information given to patient?: Patient has dentist HPI HPI Comments History of Present Illness Details This is a 67-year-old female with mild recurrent major depression, fibromyalgia, sacroiliitis, GERD and chronic idiopathic constipation that comes for follow-up on her conditions. Depression stable with Seroquel and this is follow by Psychiatry. Fibromyalgia well control with gabapentin. Sacroiliitis stable with opiates as needed. Patient is aware that oxycodone can cause addiction and sedation. GERD stable with PPIs. Constipation well controlled with Linzess. Labs were discussed and she used to have pure hypercholesterolemia that resolved with diet. Denies any chest pain or shortness of breath. [facility] Medical History TMJ (temporomandibular joint disorder) [place] Mild recurrent major depression SONALI (generalized anxiety disorder) Polyarthralgia Right hip pain Right shoulder pain Depression with anxiety Mild asthma Chest pain Dyslipidemia Fibromyalgia Surgical History TMJ derangement History of mammogram History of bunionectomy History of tubal ligation History of laparoscopic cholecystectomy History of lumbar fusion History of section History of esophagogastroduodenoscopy (EGD) Hx of colonoscopy Family History Father Heart failure Mother Heart problem Brother Stomach tumor (benign) Brother Kidney problem Stroke Brother Myocardial infarction Brother Cerebral brain hemorrhage Heart problem Social History Housing: Apartment Alcohol intake: never Patient Tobacco Use Status: Current everyday Tobacco user Tobacco use type: Cigarette Cigarettes Per Day: 10 e-Cigarette/Vaping Use: Never Used Second Hand Smoke Exposure: No service: No Current occupational status: unemployed Cognitive needs: No Hearing needs: No Vision needs: Yes Questionnaire PHQ-9 Over the last 2 weeks, how often have you been bothered by any of the following problems? 1. Little interest or pleasure in doing things: not at all 2. Feeling down, depressed, or hopeless: several days 3. Trouble falling or staying asleep, or sleeping too much: not at all 4. Feeling tired or having little energy: not at all 5. Poor appetite or overeating: not at all 6. Feeling bad about yourself - or that you are a failure or have let yourself or your family down: not at all 7. Trouble concentrating on things, such as reading the newspaper or watching television: not at all 8. Moving or speaking so slowly that other people could have noticed. Or the opposite - being so fidgety or restless that you have been moving around a lot more than usual: not at all 9. Thoughts that you would be better off or of hurting yourself in some way: not at all Total score: 1 Depression Screening Interpretation: Positive Depression Screening Done: Yes 29961 - PHQ-9 Billing: Yes Source: Developed by Drs. Chago Baer, Kassandra Alexander, Prashanth Cisse and colleagues, with an educational jhonatan from [employer]. Thrive Questionnaire Date Thrive assessed: 05/13/23 I am a: Patient What is your living situation today?: I have a steady place to live Within the past 12 months, did the food you bought not last and you didn't have the money to get more?: Never true Within the past 12 months, did you worry whether your food would run out before you got money to buy more?: Never true Do you have trouble paying for medicines?: No Do you have trouble getting transportation to medical appointments?: No Do you have trouble paying your heating and electricity bill?: No Do you have trouble taking care of your child, family member or friend?: No Do you have trouble with day-to-day activities such as bathing, preparing meals, shopping, managing finances, etc.?: No Are you currently unemployed and looking for a job?: No Are you interested in more education?: No Please select the resources that you would like help with: None Currently or been in a relationship where the following occur: no concerns reported THRIVE Score: 0 AUDIT C Alcohol Use Questionnaire (AUDIT-C) 1. How often do you have a drink containing alcohol?: Never Total Score: 0 SONALI-7 AMB Questionnaire SONALI-7 Date SONALI - 7 assessed: 05/13/23 Feeling nervous, anxious, or on edge: 0 = Not at all Not being able to stop or control worryin = Not at all Worrying too much about different things: 1 = Several days Trouble relaxin = Not at all Being so restless that it is hard to sit still: 0 = Not at all Becoming easily annoyed or irritable: 0 = Not at all Feeling afraid as if something awful might happen: 0 = Not at all Total SONALI-7 score (0-4 normal; 5-9 mild; 10-14 moderate; 15-21 severe): 1 Source: Developed by Drs. Chago Baer, Kassandra Alexander, Prashanth Cisse and colleagues, with an educational jhonatan from [employer]. Review of Systems Const All systems reviewed & are unremarkable except as noted in HPI and below Eyes Reports no additional complaints, Denies change in vision and Denies other visual disturbances Card Denies chest pain at rest, Denies chest pain with activity, Denies edema, Denies irregular heart rhythm, Denies claudication, Denies dyspnea, Denies dyspnea on exertion, Denies orthopnea, Denies paroxysmal nocturnal dyspnea and Denies slow heart rate Resp Denies cough, Denies dyspnea and Denies dyspnea on exertion GI Denies abdominal pain, Denies change in bowel habits, Denies excessive flatus, Denies nausea and Denies vomiting Denies urinary incontinence, Denies urinary hesitancy and Denies urinary urgency Physical exam (Primary Care) Vital Signs: Last Vital Signs BP 128/80 05/13/23 10:42 BMI result Body Mass Index 20.6 Tobacco/Smoking Status: Tobacco use Status Tobacco use date assessed 05/13/23 05/13/23 10:56 Patient Tobacco Use Status Current everyday Tobacco 05/13/23 10:47 Tobacco use type Cigarette 05/13/23 10:47 e-Cigarette/Vaping Use Never Used 05/13/23 10:47 PHQ-9: PHQ-9 Score PHQ-9: Total score 1 05/13/23 11:06 Depression Screening Interpretation: Positive Thrive Assessment: Date of Thrive Assessment Date Thrive assessed 05/13/23 05/13/23 10:56 Currently or been in a relationship where the following occur: no concerns reported Resp Effort & Inspection: normal respiratory effort Auscultation: clear to auscultation bilaterally Cardio Jugular venous distension: no JVD Rate: regular rate Rhythm: regular rhythm Heart sounds: S1 normal heart sound present and S2 normal heart sound present Extrem General: Yes full ROM Results AMB Urinalysis, Automated UA Leukoctes 3 Patricia/uL Last Edit by Jagdeep Hart, A on 05/13/23 10:58 UA Nitrite Negative Last Edit by Jagdeep Hart, A on 05/13/23 10:58 UA Urobilinogen 0.2 mg/dL Last Edit by Jagdeep Hart, RMA on 05/13/23 10:58 UA Protein 0 mg/dL Last Edit by Jagdeep Hart, A on 05/13/23 10:58 UA pH 6.0 Last Edit by Jagdeep Hart, RMA on 05/13/23 10:58 UA Blood 1 Ruiz/uL Last Edit by Jagdeep Hart, A on 05/13/23 10:58 UA Specific [place] 1.030 Last Edit by Jagdeep Hart, A on 05/13/23 10:58 UA Ketone Negative Last Edit by Jagdeep Hart, A on 05/13/23 10:58 UA Bilirubin 0 mg/dL Last Edit by Grazynagarrypatricia Hart, A on 05/13/23 10:58 UA Glucose 0 mg/dL Last Edit by Grazynagarrypatricia Hart, A on 05/13/23 10:58 Results Reviewed Results Reviewed: Laboratory Last Values Urine pH (Auto) 6.0 05/13/23 10:49 Specific [place] (Auto) 1.030 05/13/23 10:49 Urine Protein (Auto) 0 mg/dL 05/13/23 10:49 Glucose (UA)(Auto) 0 mg/dL 05/13/23 10:49 Urine Ketones (Auto) Negative 05/13/23 10:49 Urine Blood (Auto) 1 Ruiz/uL 05/13/23 10:49 Urine Nitrite (Auto) Negative 05/13/23 10:49 Urine Bilirubin (Auto) 0 mg/dL 05/13/23 10:49 Urine Urobilinogen (Auto) 0.2 mg/dL 05/13/23 10:49 Leukocyte Esterase (Auto) 3 Patricia/uL 05/13/23 10:49 Assessment and Plan Assessment & Plan (1) Mild recurrent major depression: Code(s): F33.0 - Major depressive disorder, recurrent, mild Plan: Continue Seroquel. Follow-up with psychiatry. (2) GERD (gastroesophageal reflux disease): Code(s): K21.9 - Gastro-esophageal reflux disease without esophagitis Qualifiers: Esophagitis presence: without esophagitis Qualified Code(s): K21.9 - Gastro-esophageal reflux disease without esophagitis Plan: Continue PPIs. (3) Chronic idiopathic constipation: Code(s): K59.04 - Chronic idiopathic constipation Plan: Continue Linzess. Follow-up with Gastroenterology. (4) Fibromyalgia: Code(s): M79.7 - Fibromyalgia Plan: Continue gabapentin. (5) Sacroiliitis: Comment: FINDINGS: There are intervertebral disc spacers at L4-L5 and L5-S1. The bones are osteopenic. The sacroiliac joints are intact. There are degenerative changes in the lower lumbar spine and in the sacroiliac joints. IMPRESSION: The bones are osteopenic. Degenerative changes in the sacroiliac joints and visualized lower lumbar spine. A displaced fracture is not clearly identified however if there remains clinical suspicion for fracture, MRI would be more sensitive. Code(s): M46.1 - Sacroiliitis, not elsewhere classified Plan: Continue oxycodone as needed for severe pain. Orders: Orders AMB Urinalysis Automated Today R35.0 - Frequency of micturition Lipid Panel 6 Months E78.5 - Hyperlipidemia, unspecified Comprehensive [place]. Panel Fast 6 Months M54.16 - Radiculopathy, lumbar region Urine Culture Today R30.0 - Dysuria Vitamin B12 and Folate 6 Months E53.8 - Deficiency of other specified B group vitamins Vitamin D 25-OH Total 6 Months E55.9 - Vitamin D deficiency, unspecified Medications: Refilled magnesium oxide 500 mg PO DAILY 30 caps 6RF 30 days K59.04 - Chronic idiopathic constipation oxycodone Partial Fill upon patient request. 10 mg (2 x 5 mg) PO Q6H PRN 240 tabs 0RF pain 30 days Coding Level of Care Code Est Pt Level 4 (56428) Diagnoses Mild recurrent major depression F33.0 Gastroesophageal reflux disease without esophagitis K21.9 Esophagitis presence: without esophagitis Chronic idiopathic constipation K59.04 Fibromyalgia M79.7 Sacroiliitis M46.1 Time Spent (min) 24
== END 2023-05-13 11:18 | disposition home or self-care (01) ==
PROVIDERS: PCP Internal Medicine; Visit Provider Internal Medicine
DX: M46.1 Sacroiliitis, not elsewhere classified (principal); F33.0 Major depressive disorder, recurrent, mild; K21.9 Gastro-esophageal reflux disease without esophagitis; K59.04 Chronic idiopathic constipation; M79.7 Fibromyalgia; R35.0 Frequency of micturition
CPT/HCPCS: 81003; 99214

== ENCOUNTER 2023-05-13 11:07 | Outpatient (REF) | payer OTHER, SELFPAY | END 2023-05-13 11:08 | disposition home or self-care (01) | LOC: HO.LAB 11:07 | PROVIDERS: Visit Provider Internal Medicine | DX: R30.0 Dysuria (principal); R35.0 Frequency of micturition | CPT/HCPCS: 87086; 87088; 87186 ==

== ENCOUNTER 2023-05-26 10:35 | Outpatient (AMB) | payer OTHER, SELFPAY ==
[2023-05-26 10:38] VITALS: BP 121/69; PULSE 78; BMI 20.8
--- NOTE | 2023-05-26 10:38 | MHC.OFFVIS ---
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 banana Allergy (Intermediate, Uncoded 05/13/23 11:05) rash pollens Allergy (Intermediate, Uncoded 05/13/23 11:05) sneeze, watery eyes HPI 6 month follow up HPI Details Assessment & Plan (1) Chronic idiopathic constipation: Code(s): K59.04 - Chronic idiopathic constipation Plan: She recently had a severe UTI with pain and hematuria. She saw her PCP Dr. Gallego and she was tx'ed with nitrofurantoin. IN 5 weeks they will retest her urine. She still has some lower abd pain but she thinks it is r/t this. She continues to move her bowels well with the LInzess and the bisacodyl, and the pantoprazole 40mg bid as well. Her jaw still bothers her when she tries to chew harder things and she still has pain. She does not want to travel to [place] where she had her surgery as the travel is onerous. She does find it easier to eat and her weight is up form 103 to 109 lbs. ROV 6 mos. Colonoscopy not due until 2027. (2) GERD (gastroesophageal reflux disease): Code(s): K21.9 - Gastro-esophageal reflux disease without esophagitis Qualifiers: Esophagitis presence: without esophagitis Qualified Code(s): K21.9 - Gastro-esophageal reflux disease without esophagitis (3) TMJ (dislocation of temporomandibular joint): Code(s): S03.00XA - Dislocation of jaw, unspecified side, initial encounter Medications: Changed From bisacodyl (Dulcola x (bisacodyl)) 10 mg PO BEDTIME PRN To bisacodyl (Dulcola x (bisacodyl)) 10 mg (2 x 5 mg) P O BEDTIME 60 tabs 6RF Refilled linaclotide (Linze ss) 290 mcg PO QAM 30 days 30 caps 6RF K59.04 - Chronic i diopathic constipa tion pantoprazole 40 mg PO BID 60 t abs 6RF K21.9 - Gastro-eso phageal reflux dis ease without esoph agitis TODAY'S VISIT She was just dx'ed with osteopenia and was put on fosamax, and she says that she has been having more CP and she is fearful that it will effect her TMJ. She has been on it for 5 weeks. I let her know she should give the medication a good try because it is affective but if she feels like it is causing her trouble she can discuss this with the prescriber as there are other options. She continues on her pantoprazole 40mg bid and her LInzess 290mcg with dulcolax for breakthrough with good control of her GI conditions. ROV 6 mos. PFSH Medical History TMJ (temporomandibular joint disorder) [place] Mild recurrent major depression SONALI (generalized anxiety disorder) Polyarthralgia Right hip pain Right shoulder pain Depression with anxiety Mild asthma Chest pain Dyslipidemia Fibromyalgia Surgical History TMJ derangement History of mammogram History of bunionectomy History of tubal ligation History of laparoscopic cholecystectomy History of lumbar fusion History of section History of esophagogastroduodenoscopy (EGD) Hx of colonoscopy Family History Father Heart failure Mother Heart problem Brother Stomach tumor (benign) Brother Kidney problem Stroke Brother Myocardial infarction Brother Cerebral brain hemorrhage Heart problem Social History Housing: Apartment Alcohol intake: never Patient Tobacco Use Status: Current everyday Tobacco user Tobacco use type: Cigarette Cigarettes Per Day: 10 e-Cigarette/Vaping Use: Never Used Second Hand Smoke Exposure: No service: No Current occupational status: unemployed Cognitive needs: No Hearing needs: No Vision needs: Yes Review of Systems Const Details: glasses Denies fatigue, Denies fever(s), Denies night sweats, Denies poor appetite and Denies weight loss ENT Reports Normal hearing present, Denies dental pain, Denies dysphagia, Denies hearing loss, Denies mouth pain, Denies odynophagia, Denies throat swelling, Denies tongue swelling and Reports other (Dentition adequate) Card Reports no additional complaints Resp Reports no additional complaints GI Details: Denies abdominal pain, Denies melena, Denies bloating, Denies hematochezia, Reports constipation, Denies GI cramping, Denies dysphagia, Denies excessive flatus, Denies early satiety, Reports heartburn, Denies diarrhea, Denies nausea, Denies odynophagia, Denies vomiting and Denies hematemesis Skin/Breast Denies pruritus, Denies lesions, Denies rash and Denies jaundice Neuro Reports Normal hearing present and Denies Abnormal speech present Endo Denies fatigue Aller/Immun Denies throat swelling and Denies tongue swelling Physical Exam Vital Signs: Last Vital Signs Pulse 78 05/26/23 10:38 BP 121/69 05/26/23 10:38 BMI result Body Mass Index 20.8 Const General: cooperative, no acute distress, well developed and well groomed Nutritional Appearance: average body habitus and well nourished Orientation/consciousness: oriented to person, oriented to place and oriented to time Limitations: No language barrier HEENT Head: Yes normocephalic and Yes atraumatic Eyes General: appearance normal, both eyes and all related structures Pupils: Equal, round and reactive pupils present Neck Neck: Yes normal visual inspection and Yes no lymphadenopathy Thyroid: Thyroid normal Resp Effort & Inspection: normal respiratory effort and able to speak in complete sentences Auscultation: clear to auscultation bilaterally Cardio Rate: regular rate Rhythm: regular rhythm Heart sounds: Normal, physiologic split S2 sound present Peripheral pulses: radial pulses present and posterior tibial pulses present GI Inspection: No distended and No Abdominal panniculus present Palpation (GI): Soft to palpation, nontender, no guarding, not rigid and No hepatosplenomegaly present Percussion: Yes normal to percussion Auscultation: normal bowel sounds Rectal Exam - Female: deferred Skin General skin exam: no rashes or lesions noted, turgor normal, skin not dry, no jaundice, No spider nevi and no striae Rashes: no rashes Nails: normal Neuro General: oriented to person, oriented to place and oriented to time Cranial nerves: Yes Equal, round and reactive pupils present and Yes Normal hearing present Speech: No Abnormal speech present Extrem General: Yes normal to inspection, No clubbing, No cyanosis and No edema Psych Appearance: grossly normal and well kempt Mental Status: mental status grossly normal Speech and movement: Normal speech and movement present Affect: normal affect Attitude: cooperative Thought process: Normal thought process present and not confabulating Thought content: Normal thought content present Insight: Good insight present (Psych) Judgement: Good judgement present (Psych) Assessment & Plan Assessment & Plan (1) Chronic idiopathic constipation: Code(s): K59.04 - Chronic idiopathic constipation (2) GERD (gastroesophageal reflux disease): Code(s): K21.9 - Gastro-esophageal reflux disease without esophagitis Qualifiers: Esophagitis presence: without esophagitis Qualified Code(s): K21.9 - Gastro-esophageal reflux disease without esophagitis Plan She was just dx'ed with osteopenia and was put on fosamax, and she says that she has been having more CP and she is fearful that it will effect her TMJ. She has been on it for 5 weeks. I let her know she should give the medication a good try because it is affective but if she feels like it is causing her trouble she can discuss this with the prescriber as there are other options. She continues on her pantoprazole 40mg bid and her LInzess 290mcg with dulcolax for breakthrough with good control of her GI conditions. ROV 6 mos. Medications: Refilled linaclotide (Linzess) 290 mcg PO QAM 30 caps 6RF 30 days K59.04 - Chronic idiopathic constipation bisacodyl (Dulcolax (bisacodyl)) 10 mg (2 x 5 mg) PO BEDTIME 60 tabs 6RF pantoprazole 40 mg PO BID 60 tabs 6RF K21.9 - Gastro-esophageal reflux disease without esophagitis Coding Level of Care Code Est Pt Level 3 (95382) Diagnoses Chronic idiopathic constipation K59.04 Gastroesophageal reflux disease without esophagitis K21.9 Esophagitis presence: without esophagitis
== END 2023-05-26 11:46 | disposition home or self-care (01) ==
PROVIDERS: PCP Internal Medicine; Visit Provider Nurse Practitioner
DX: K59.04 Chronic idiopathic constipation (principal); K21.9 Gastro-esophageal reflux disease without esophagitis
CPT/HCPCS: 99213

== ENCOUNTER → 2023-05-26 10:35 | Outpatient (BNVA) | payer OTHER, SELFPAY | PROVIDERS: PCP Internal Medicine; Visit Provider Nurse Practitioner | DX: K59.04 Chronic idiopathic constipation (principal); K21.9 Gastro-esophageal reflux disease without esophagitis | CPT/HCPCS: 99212 ==

== ENCOUNTER 2023-06-12 08:36 | Outpatient (REF) | payer OTHER, SELFPAY | END 2023-06-12 08:37 | disposition home or self-care (01) | LOC: HO.MAMMO 08:36 | PROVIDERS: PCP Internal Medicine; Visit Provider Internal Medicine | DX: Z12.31 Encounter for screening mammogram for malignant neoplasm of breast (principal) | CPT/HCPCS: 77063; 77067 ==

== ENCOUNTER → 2023-06-12 09:15 | Outpatient (BNV) | payer OTHER, SELFPAY | PROVIDERS: PCP Internal Medicine; Visit Provider Radiology Diagnostic Radiology | DX: Z12.31 Encounter for screening mammogram for malignant neoplasm of breast (principal) | CPT/HCPCS: 77063; 77067 ==

== ENCOUNTER 2023-07-19 10:35 | Outpatient (REF) | payer OTHER, SELFPAY ==
--- NOTE | ~2023-07-19 | US_ITS ---
EXAMINATION: US PELVIS CLINICAL INFORMATION: Postmenopausal, last menstrual period 2008, ovarian cyst on pelvic ultrasound of 02/16/2023. COMPARISON: Pelvic ultrasound of 02/16/2023. TECHNIQUE: Ultrasound of the pelvis is performed using both transabdominal and transvaginal transducers along with Doppler. Transvaginal imaging is performed due to inadequate visualization transabdominally. FINDINGS: The uterus is anteverted and measures 6.1 x 2.0 x 2.9 cm. No discrete fibroids are appreciated. Endometrial thickness is 2 mm. Right ovarian 3.5 x 3.6 x 3.9 cm simple cyst previously measured 3.8 cm in maximum dimension. Right ovary measures 4.2 x 3.4 x 4.5 cm, volume 33.6 mL. Left ovary not visualized. No significant free fluid. US/US pelvic and transvaginal IMPRESSION: A 3.9 cm simple right ovarian cyst is redemonstrated, previously measuring 3.8 cm in maximum dimension on 02/16/2023. There is no indication for additional imaging at this time.
== END 2023-07-19 10:36 | disposition home or self-care (01) ==
LOC: HO.US 10:35
PROVIDERS: PCP Internal Medicine; Visit Provider Obstetrics & Gynecology
DX: N83.209 Unspecified ovarian cyst, unspecified side (principal)
CPT/HCPCS: 76830; 76856

== ENCOUNTER 2023-08-05 12:07 | Outpatient (AMB) | payer OTHER, SELFPAY ==
--- NOTE | 2023-08-05 12:06 | MHC.OFFVIS ---
Intake Visit Reasons: U/S results Allergies mold Allergy (Intermediate, Verified 08/05/23 12:06) Hives dust Allergy (Intermediate, Uncoded 08/05/23 12:06) sneeze, watery eyes food sensitivities i.e. banana Allergy (Intermediate, Uncoded 08/05/23 12:06) rash pollens Allergy (Intermediate, Uncoded 08/05/23 12:06) sneeze, watery eyes HPI Comments Details: The patient is scheduled telehealth visit for follow-up ultrasound. No pelvic pain, but the patient is complaining of increase in her acid reflux since started alendronate Pelvic ultrasound done recently showed the following: IMPRESSION: A 3.9 cm simple right ovarian cyst is redemonstrated, previously measuring 3.8 cm in maximum dimension on 02/16/2023. There is no indication for additional imaging at this time [facility] Medical History TMJ (temporomandibular joint disorder) [place] Mild recurrent major depression SONALI (generalized anxiety disorder) Polyarthralgia Right hip pain Right shoulder pain Depression with anxiety Mild asthma Chest pain Dyslipidemia Fibromyalgia Surgical History TMJ derangement History of mammogram History of bunionectomy History of tubal ligation History of laparoscopic cholecystectomy History of lumbar fusion History of section History of esophagogastroduodenoscopy (EGD) Hx of colonoscopy Family History Father Heart failure Mother Heart problem Brother Stomach tumor (benign) Brother Kidney problem Stroke Brother Myocardial infarction Brother Cerebral brain hemorrhage Heart problem Social History Housing: Apartment Alcohol intake: never Patient Tobacco Use Status: Current everyday Tobacco user Tobacco use type: Cigarette Cigarettes Per Day: 10 e-Cigarette/Vaping Use: Never Used Second Hand Smoke Exposure: No service: No Current occupational status: unemployed Cognitive needs: No Hearing needs: No Vision needs: Yes Review of Systems Const All systems reviewed & are unremarkable except as noted in HPI and below Reports as per HPI and Reports no additional complaints GI Reports no additional complaints Reports no additional complaints Telehealth Telehealth Telehealth Platform: Telephone Location of provider rendering services: practice address Location of patient: address on file Patient Identification confirmed using: Name, : Yes Telehealth method: voice only Patient verbally consented to treatment: Yes Patient verbally consented to billing insurance company: Yes Patient informed of any privacy concerns related to visit: Yes Assessment & Plan Assessment & Plan (1) Ovarian cyst: Code(s): N83.209 - Unspecified ovarian cyst, unspecified side Category: Medical Plan: Discussed with the patient the the finding on a pelvic ultrasound showing a simple ovarian cyst with no evidence of suspicious features, with a size of 3.9 cm compared to 3.8 cm on ultrasound done in 03/03 which is less than 10 cm. Discussed the patient the limitation of pelvic ultrasound to differentiate between benign and malignant ovarian cyst. Explained to the patient that pelvic Ultrasound characteristics of benign masses include simple appearance: thin, smooth anderson; and the absence of solid components, septations, or internal blood flow on color Doppler ultrasound imaging. These simple cysts are highly likely to be benign in any age group. Studies have shown that spontaneous resolution occurs in more than 2/3 of cases. Simple cysts are almost always universally benign, regardless of menopausal status or cyst size, with malignancy rates in most series of 0?1% . CA 125, CA 19-9 and CEA ovarian cancer serum marker tests, are indicated to evaluate like with of malignancy and need for surgery. Elevated levels in combination with other findings can be useful to distinguish between benign and malignant adnexal masses. Specificity and positive predictive value of CA 125 levels are consistently higher in postmenopausal woman compared to premenopausal woman. Although CA 125 level measurement is Last valuable in predicting cancer risk in premenopausal woman thin in postmenopausal woman extreme values increase suspicion for a malignant process. The overall sensitivity of CA 125 in distinguish in benign from malignant adnexal mass ranges be 61-91 % and negative for active value ranges from 67-90%. Recommended CA 125, CA 19-9 and CEA and repeat ultrasound in 9-12 months. Instructions given the patient to schedule a 6 months follow-up pelvic ultrasound with follow-up appointment afterwards. All questions answered, the patient verbalized understanding. I spent a total of 20 minutes reviewing the chart, talking to the patient via phone and documenting in the medical record. (2) At high risk for fracture: Comment: Not tolerating alendronate Code(s): Z91.89 - Other specified personal risk factors, not elsewhere classified Category: Medical Plan: Since the patient is not able to tolerate alendronate because of her increase in her rapid reflex will refer to Rheumatology for further management Orders: Orders CA-125 Today N83.209 - Unspecified ovarian cyst, unspecified side Carcinoembryonic Antigen Today N83.209 - Unspecified ovarian cyst, unspecified side Carbohydrate Antigen 19-9 Today N83.209 - Unspecified ovarian cyst, unspecified side US pelvic and transvaginal 9 Months N83.209 - Unspecified ovarian cyst, unspecified side Referrals Rheumatology Referral Z91.89 - Other specified personal risk factors, not elsewhere classified Coding Level of Care Code Tele Est Pt Level 1 (75005) Diagnoses Ovarian cyst N83.209 At high risk for fracture Z91.89
== END 2023-08-05 14:55 | disposition home or self-care (01) ==
LOC: HO.HWS 12:07
PROVIDERS: PCP Internal Medicine; Visit Provider Obstetrics & Gynecology
DX: N83.209 Unspecified ovarian cyst, unspecified side (principal); Z91.89 Other specified personal risk factors, not elsewhere classified
CPT/HCPCS: 99211

== ENCOUNTER → 2023-08-05 12:07 | Outpatient (BNVA) | payer OTHER, SELFPAY | PROVIDERS: PCP Internal Medicine; Visit Provider Obstetrics & Gynecology ==

== ENCOUNTER 2023-08-13 10:19 | Outpatient (REF) | payer OTHER, SELFPAY ==
[2023-08-13 11:08] LABS: Appearance Urine Cloudy; Color Urine Dark Yellow; Glucose Urine UA Negative (Negative); Leukocyte Esterase Urine Small (1+) (Negative); Nitrite Urine Positive (Negative); Specific Gravity - Urine 1.015 (1.005-1.025); UMIC TRIGGER UACC YES; Urine Blood Negative (Negative); Urine Ketones Trace mg/dL (Negative); Urine Protein Negative (Neg-Trace)
[2023-08-13 11:11] LABS: Bacteria Urine 4+ (None Seen); Hyaline Casts Urine 0-2 /LPF (0-2); RBC Urine 0-2 /HPF (0-2); Squamous Epithelial Cell Urine 0-2 /HPF (0-2); UACC Culture Trigger YES
== END 2023-08-13 10:20 | disposition home or self-care (01) ==
LOC: HO.LAB 10:19
PROVIDERS: PCP Internal Medicine; Visit Provider Internal Medicine
DX: N83.209 Unspecified ovarian cyst, unspecified side (principal); N39.0 Urinary tract infection, site not specified
CPT/HCPCS: 81001; 81003; 87086; 87088; 87186

== ENCOUNTER 2023-10-25 11:02 | Outpatient (REF) | payer OTHER, SELFPAY ==
[2023-10-25 13:00] LABS: Alanine Aminotransferase 11 U/L (0-31); Albumin Level 3.9 g/dL (3.5-5.0); Alkaline Phosphatase 71 U/L (39-117); Anion Gap 13 (12-20); Aspartate Amino Transferase 17 U/L (5-31); Bilirubin Direct < 0.2 mg/dL (0.0-0.5); Bilirubin Total 0.2 mg/dL (0.0-1.0); Blood Urea Nitrogen 16 mg/dL (9-16); C Reactive Protein 0.24 mg/dL (< or = 0.50); Calcium 9.2 mg/dL (8.4-10.2); Carbon Dioxide 30 mmol/L (22-29); Chloride 102 mmol/L (96-108); Cholesterol 200 mg/dL (<200); Estimated Glomerular Filt Rate > 60; Glucose Random 100 mg/dL (60-115); HDL Cholesterol 66 mg/dL (>40); LDL Cholesterol Calculated 111 mg/dL (<100); Potassium 4.1 mmol/L (3.3-5.1); Sodium 141 mmol/L (135-145); Total Protein 6.8 g/dL (6.5-8.0); Triglycerides 118 mg/dL (<150)
[2023-10-25 13:13] LABS: Erythrocyte Sedimentation Rate 12 MM/HR (0-20)
== END 2023-10-25 11:03 | disposition home or self-care (01) ==
LOC: HO.LAB 11:02
PROVIDERS: PCP Internal Medicine; Visit Provider Internal Medicine
DX: R51.9 Headache, unspecified (principal); F33.0 Major depressive disorder, recurrent, mild; Z82.3 Family history of stroke; Z79.899 Other long term (current) drug therapy
CPT/HCPCS: 36415; 80048; 80061; 80076; 85652; 86140; 99212

== ENCOUNTER 2023-10-25 11:02 | Outpatient (AMB) | payer OTHER, SELFPAY ==
--- NOTE | 2023-10-25 11:05 | A.OFFPC_ITS ---
Vital Signs 10/25/23 11:06 Height 5 ft 1 in Weight 109 lb 8 oz BMI 20.7 BP 110/62 Blood Pressure Location Lt brachial Position Sitting Pulse 72 Pulse Source Pulse Oximeter Pulse Oximetry (%) 96 Oxygen Delivery Method Room Air Intake Visit Reasons: Headache sick visit Intake Note: Patient is here to follow up on Headache on the left side of head with numbness of her left side forehead. 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 banana Allergy (Intermediate, Uncoded 10/26/23 09:42) rash pollens Allergy (Intermediate, Uncoded 10/26/23 09:42) sneeze, watery eyes Medication List - Last Reconciled 10/26/23 by Viral Phillips MD albuterol sulfate 90 mcg/actuation 2 puffs inhalation Q6-8H 30 days alendronate 70 mg PO QWEEK alprazolam 0.5 mg PO BID PRN 30 days bisacodyl (Dulcolax (bisacodyl)) 10 mg (2 x 5 mg) PO BEDTIME calcium carbonate-vitamin D3 600 mg-12.5 mcg (500 unit) (Calcium 600 with Vitamin D3) 1 cap PO .once a day 90 days cyclobenzaprine 5 mg PO BID PRN 30 days duloxetine 60 mg PO BID gabapentin 600 mg PO TID hydrocortisone 1% (Anti-Itch (hydrocortisone)) 1 appl topical BID PRN 30 days linaclotide (Linzess) 290 mcg PO QAM 30 days magnesium oxide 500 mg PO DAILY 30 days oxycodone 10 mg (2 x 5 mg) PO Q6H PRN 30 days pantoprazole 40 mg PO BID quetiapine 400 mg PO BEDTIME quetiapine 100 mg PO BEDTIME PRN Tobacco use date assessed: 10/25/23 Fall risk assessment: No Falls in past year Last assessed Fall Risk: 10/25/23 Dental Screening Dental Screen Date: 05/13/23 HPI Headache sick visit HPI Details 67-year-old female presents to the [facility] for a sick visit. Patient is reporting numbness on the left side of the forehead for the past 4 days. She feels numb exactly abovel the left eye in the forehead area. No loss of vision. No nausea or vomiting. Patient is concerned because she has had extensive bilateral TMJ repair. She has family history of stroke. Does not report any excruciating headaches. [facility] Medical History TMJ (temporomandibular joint disorder) [place] Mild recurrent major depression SONALI (generalized anxiety disorder) Polyarthralgia Right hip pain Right shoulder pain Depression with anxiety Mild asthma Chest pain Dyslipidemia Fibromyalgia Surgical History TMJ derangement History of mammogram History of bunionectomy History of tubal ligation History of laparoscopic cholecystectomy History of lumbar fusion History of section History of esophagogastroduodenoscopy (EGD) Hx of colonoscopy Family History Father Heart failure Mother Heart problem Brother Stomach tumor (benign) Brother Kidney problem Stroke Brother Myocardial infarction Brother Cerebral brain hemorrhage Heart problem Social History (Updated 10/25/23 @ 11:12 by CY Bunch) Housing: Apartment Alcohol intake: never Patient Tobacco Use Status: Current everyday Tobacco user Tobacco use type: Cigarette Cigarette Packs Per Day: 0.5 Cigarettes Per Day: 10 e-Cigarette/Vaping Use: Never Used Second Hand Smoke Exposure: Yes service: No Current occupational status: unemployed Cognitive needs: No Hearing needs: No Vision needs: Yes Questionnaire Thrive Questionnaire Date Thrive assessed: 05/13/23 Are you currently unemployed and looking for a job?: No SONALI-7 AMB Questionnaire SONALI-7 Date SONALI - 7 assessed: 05/13/23 Source: Developed by Drs. Chago Baer, Kassandra Alexander, Prashanth Cisse and colleagues, with an educational jhonatan from [employer]. Physical exam (Primary Care) Vital Signs: Last Vital Signs Pulse 72 10/25/23 11:06 BP 110/62 10/25/23 11:06 Pulse Ox 96 10/25/23 11:06 Oxygen Delivery Method Room Air 10/25/23 11:06 BMI result Body Mass Index 20.7 Tobacco/Smoking Status: Tobacco use Status Tobacco use date assessed 10/25/23 10/25/23 11:13 Patient Tobacco Use Status Current everyday Tobacco 10/25/23 11:13 Tobacco use type Cigarette 10/25/23 11:13 e-Cigarette/Vaping Use Never Used 10/25/23 11:13 Thrive Assessment: Date of Thrive Assessment Date Thrive assessed 05/13/23 10/25/23 11:13 Const General: cooperative and healthy appearing Nutritional Appearance: well nourished Orientation/consciousness: patient oriented x3 Limitations: no limitations HENMT Head: Yes normal to inspection Eyes General: appearance normal, both eyes and all related structures Neck Neck: Yes normal visual inspection Chest Chest palpation & inspection: normal palpation of entire chest wall Resp Effort & Inspection: normal respiratory effort Skin Other: No visible rash on the forehead or scalp. Minimal tenderness on tapping above the left eyebrow. No tenderness on palpation around the left temporal artery. Neuro General: patient oriented x3 Assessment and Plan Assessment & Plan (1) Mild recurrent major depression: Code(s): F33.0 - Major depressive disorder, recurrent, mild (2) Headache: Code(s): R51.9 - Headache, unspecified Plan: Blood work to rule out giant cell arteritis ordered. Patient was reassured that she has no signs indicating of an impending stroke. Should the numbness symptoms persist on the forehead for more than a few more days, a CT scan of the head will be considered. Orders: Orders Basic Metabolic Panel 10/25/23 F33.0 - Major depressive disorder, recurrent, mild Lipid Panel 10/25/23 F33.0 - Major depressive disorder, recurrent, mild Liver Panel 10/25/23 F33.0 - Major depressive disorder, recurrent, mild Erythrocyte Sedimentation Rate 10/25/23 F33.0 - Major depressive disorder, recurrent, mild C Reactive Protein 10/25/23 F33.0 - Major depressive disorder, recurrent, mild Medications: Refilled hydrocortisone 1% (Anti-Itch (hydrocortisone)) 1 appl topical BID 30 days PRN 28.4 grams 1RF skin irritation Coding Level of Care Code Est Pt Level 4 (21683) Diagnoses Mild recurrent major depression F33.0 Headache R51.9
[2023-10-25 11:06] VITALS: BP 110/62; PULSE 72; O2SAT 96; BMI 20.7
== END 2023-10-25 11:40 | disposition home or self-care (01) ==
PROVIDERS: PCP Internal Medicine; Visit Provider Internal Medicine
DX: F33.0 Major depressive disorder, recurrent, mild (principal); R51.9 Headache, unspecified

== ENCOUNTER 2023-11-17 09:55 | Outpatient (AMB) | payer OTHER, SELFPAY ==
--- NOTE | 2023-11-17 09:59 | A.OFFPC_ITS ---
Vital Signs 11/17/23 10:00 Height 5 ft 1 in Weight 108 lb BMI 20.4 BP 122/68 Blood Pressure Location Lt brachial Position Sitting Intake Visit Reasons: PE Intake Note: Patient here for a physical exam Quality Inspector Required: No Accompanied by: Self / Same As Patient Allergies mold Allergy (Intermediate, Verified 11/17/23 10:18) Hives dust Allergy (Intermediate, Uncoded 11/17/23 10:18) sneeze, watery eyes food sensitivities i.e. banana Allergy (Intermediate, Uncoded 11/17/23 10:18) rash pollens Allergy (Intermediate, Uncoded 11/17/23 10:18) sneeze, watery eyes Medication List - Last Reconciled 11/17/23 by Grazyna Mcgraw MD albuterol sulfate 90 mcg/actuation 2 puffs inhalation Q6-8H 30 days alprazolam 0.5 mg PO BID PRN 30 days bisacodyl (Dulcolax (bisacodyl)) 10 mg (2 x 5 mg) PO BEDTIME calcium carbonate-vitamin D3 600 mg-12.5 mcg (500 unit) (Calcium 600 with Vitamin D3) 1 cap PO .once a day 90 days cyclobenzaprine 5 mg PO BID PRN 30 days duloxetine 60 mg PO BID gabapentin 600 mg PO TID hydrocortisone 1% (Anti-Itch (hydrocortisone)) 1 appl topical BID PRN 30 days linaclotide (Linzess) 290 mcg PO QAM 30 days magnesium oxide 500 mg PO DAILY 30 days oxycodone 10 mg (2 x 5 mg) PO Q6H PRN 30 days pantoprazole 40 mg PO BID quetiapine 400 mg PO BEDTIME quetiapine 100 mg PO BEDTIME PRN Tobacco use date assessed: 10/25/23 Fall risk assessment: No Falls in past year Last assessed Fall Risk: 11/17/23 Dental Screening Dental Screen Date: 11/17/23 Did you have a dental visit in the last 12 months?: Yes Did you have a dental problem in the last 6 months where you did not have access to dental care?: No Was dental information given to patient?: Patient has dentist HPI HPI Comments History of Present Illness Details This is a 67-year-old female that comes for her physical exam. Mammogram done 2023 was normal. Pap smear done 2022 was normal. Colonoscopy done 2018 was normal and next colonoscopy should be 2027. DEXA scan done 2023 shows osteopenia. She stopped taking alendronate due to abdominal pain and will see Rheumatology regarding her osteopenia. No chest pain or shortness on breath. She is a smoker and was advised to quit. Signed pain management contract today for her sacroiliitis. Mild major depression stable with medications and follow by Psychiatry and counseling. She complains of left facial numbness that started last month. She still has left jaw pain from TMJ requiring surgery and has problem chewing hard food. [facility] Medical History TMJ (temporomandibular joint disorder) Lockjaw Mild recurrent major depression SONALI (generalized anxiety disorder) Polyarthralgia Right hip pain Right shoulder pain Depression with anxiety Mild asthma Chest pain Dyslipidemia Fibromyalgia Surgical History History of tooth extraction TMJ derangement History of mammogram History of bunionectomy History of tubal ligation History of laparoscopic cholecystectomy History of lumbar fusion History of section History of esophagogastroduodenoscopy (EGD) Hx of colonoscopy Family History Father Heart failure Mother Heart problem Brother Stomach tumor (benign) Brother Kidney problem Stroke Brother Myocardial infarction Brother Cerebral brain hemorrhage Heart problem Social History Housing: Apartment Alcohol intake: never Patient Tobacco Use Status: Current everyday Tobacco user Tobacco use type: Cigarette Cigarette Packs Per Day: 0.5 Cigarettes Per Day: 10 e-Cigarette/Vaping Use: Never Used Second Hand Smoke Exposure: Yes service: No Current occupational status: unemployed Cognitive needs: No Hearing needs: No Vision needs: Yes Questionnaire PHQ-9 Over the last 2 weeks, how often have you been bothered by any of the following problems? 1. Little interest or pleasure in doing things: not at all 2. Feeling down, depressed, or hopeless: not at all 3. Trouble falling or staying asleep, or sleeping too much: not at all 4. Feeling tired or having little energy: several days 5. Poor appetite or overeating: not at all 6. Feeling bad about yourself - or that you are a failure or have let yourself or your family down: nearly every day 7. Trouble concentrating on things, such as reading the newspaper or watching television: not at all 8. Moving or speaking so slowly that other people could have noticed. Or the opposite - being so fidgety or restless that you have been moving around a lot more than usual: not at all 9. Thoughts that you would be better off or of hurting yourself in some way: not at all Total score: 4 Depression Screening Interpretation: Positive Depression Screening Follow-up: Existing condition, In treatment, Community Mental Health Worker F/U and Follow- up Visit Requested Depression Screening Done: Yes 11177 - PHQ-9 Billing: Yes Source: Developed by Drs. Chago Baer, Prashanth Ibarra and colleagues, with an educational jhonatan from [employer]. Thrive Questionnaire Date Thrive assessed: 11/17/23 I am a: Patient What is your living situation today?: I choose not to answer this question Within the past 12 months, did the food you bought not last and you didn't have the money to get more?: I choose not to answer this question Within the past 12 months, did you worry whether your food would run out before you got money to buy more?: I choose not to answer this question Do you have trouble paying for medicines?: I choose not to answer this question Do you have trouble getting transportation to medical appointments?: I choose not to answer this question Do you have trouble paying your heating and electricity bill?: I choose not to answer this question Do you have trouble taking care of your child, family member or friend?: I choose not to answer this question Do you have trouble with day-to-day activities such as bathing, preparing meals, shopping, managing finances, etc.?: I choose not to answer this question Are you currently unemployed and looking for a job?: No Are you interested in more education?: I choose not to answer this question Please select the resources that you would like help with: None THRIVE Score: 0 SONALI-7 AMB Questionnaire SONALI-7 Date SONALI - 7 assessed: 05/13/23 Source: Developed by Kassandra Funez Benjamin, Prashanth Cisse and colleagues, with an educational jhonatan from [employer]. Review of Systems Const All systems reviewed & are unremarkable except as noted in HPI and below Card Denies chest pain at rest, Denies chest pain with activity, Denies edema, Denies irregular heart rhythm, Denies claudication, Denies dyspnea, Denies dyspnea on exertion, Denies orthopnea, Denies paroxysmal nocturnal dyspnea and Denies slow heart rate Resp Denies cough, Denies dyspnea and Denies dyspnea on exertion GI Denies abdominal pain, Denies change in bowel habits, Denies excessive flatus, Denies nausea and Denies vomiting Physical exam (Primary Care) Vital Signs: Last Vital Signs BP 122/68 11/17/23 10:00 BMI result Body Mass Index 20.4 Tobacco/Smoking Status: Tobacco use Status Tobacco use date assessed 10/25/23 11/17/23 10:07 Patient Tobacco Use Status Current everyday Tobacco 11/17/23 10:07 Tobacco use type Cigarette 11/17/23 10:07 e-Cigarette/Vaping Use Never Used 11/17/23 10:07 Are you ready to quit: Yes Tobacco cessation counseling provided: Yes Items discussed: Nicotine replacement and QuitWorks Relapse Prevention: discussed the importance of a supportive environment, discussed extending NRT, discussed negative mood or depression after quitting, weight gain after smoking is common and discussed dietary, exercise and/or lifestyle changes Number of minutes spent counselin CPT code: 01686 - 4-10 Minutes PHQ-9: PHQ-9 Score PHQ-9: Total score 4 11/17/23 11:08 Depression Screening Interpretation: Positive Depression Screening Follow-up: Existing condition, In treatment, Community Mental Health Worker F/U and Follow- up Visit Requested Thrive Assessment: Date of Thrive Assessment Date Thrive assessed 11/17/23 11/17/23 10:07 HENMT Head: Yes normal to inspection, Yes normocephalic and Yes atraumatic Ears: external ears normal Eyes General: appearance normal, both eyes and all related structures Eyelids: Yes eyelids normal Conjunctivae: conjunctivae normal Neck Neck: Yes normal visual inspection and Yes supple Resp Effort & Inspection: normal respiratory effort Auscultation: clear to auscultation bilaterally Cardio Jugular venous distension: no JVD Rate: regular rate Rhythm: regular rhythm Heart sounds: S1 normal heart sound present and S2 normal heart sound present GI Inspection: Yes normal to inspection Palpation (GI): Soft to palpation and nontender Auscultation: normal bowel sounds Skin General skin exam: no rashes or lesions noted Neuro General: no focal motor deficits Extrem General: Yes full ROM Psych Appearance: grossly normal Office Procedures Flu Questionnaire Does the patient have a severe egg allergy?: No Does the patient have severe life threatening allergies?: No Does the patient have a fever or illness today?: No Has the patient ever had Guillain-Peak Syndrome?: No Has the patient ever had any past reaction to a flu shot?: No Results AMB Urinalysis, Automated UA Leukoctes 2 Patricia/uL Last Edit by CY Sanders on 11/17/23 11:10 UA Nitrite Positive Last Edit by Jagdeep Hart Chapo on 11/17/23 11:10 UA Urobilinogen 2 mg/dL Last Edit by Jagdeep Hart [facility] on 11/17/23 11:10 UA Protein 0 mg/dL Last Edit by Jagdeep Hart [facility] on 11/17/23 11:10 UA pH 6.0 Last Edit by Jagdeep Hart [facility] on 11/17/23 11:10 UA Blood 0 Ruiz/uL Last Edit by Jagdeep Hart Chapo on 11/17/23 11:10 UA Specific Malone 1.020 Last Edit by Jagdeep Hart [facility] on 11/17/23 11 :10 UA Ketone Positive Last Edit by Jagdeep Hart Chapo on 11/17/23 11:10 UA Bilirubin 0 mg/dL Last Edit by Jagdeep Hart [facility] on 11/17/23 11:10 UA Glucose 0 mg/dL Last Edit by Jagdeep Hart [facility] on 11/17/23 11:10 Immunizations Fluarix Triv [id number] (PF) 45 mcg (15 mcg x 3)/0.5 mL IM syringe Performing Provider: Grazyna Mcgraw MD [place] [facility] [place] [facility] Administered by: CY Sanders on 11/17/23 10:45 Dose Route Admin Location Dispensed Lot Number Expiration Date [facility] Continuous Improvement Facilitator 0.5 mL IM Right Deltoid 0.5 mL [id number] 06/30/25 [id number] [employer] VIS Given Date VIS Provided VIS Publication Date 11/17/23 Single Vaccine 20 Eligibility Eligibility Date Funding Source Not [facility] Eligible 11/17/23 Private Results Reviewed Results Reviewed: Laboratory Last Values Urine pH (Auto) 6.0 11/17/23 11:08 Specific Malone (Auto) 1.020 11/17/23 11:08 Urine Protein (Auto) 0 mg/dL 11/17/23 11:08 Glucose (UA)(Auto) 0 mg/dL 11/17/23 11:08 Urine Ketones (Auto) Positive 11/17/23 11:08 Urine Blood (Auto) 0 Ruiz/uL 11/17/23 11:08 Urine Nitrite (Auto) Positive 11/17/23 11:08 Urine Bilirubin (Auto) 0 mg/dL 11/17/23 11:08 Urine Urobilinogen (Auto) 2 mg/dL 11/17/23 11:08 Leukocyte Esterase (Auto) 2 Patricia/uL 11/17/23 11:08 Coding Level of Care Code Est Pt Level 3 (88835) Est Pt Prev Care >65y(02333) Diagnoses Physical exam Z00.00 Mild recurrent major depression F33.0 Sacroiliitis M46.1 Osteopenia M85.80 Additional Codes Vital Signs *Quality* - CPT code: 76600 - 4-10 Minutes ([id number]) Time Spent (min) 35 Assessment & Plan Assessment & Plan (1) Physical exam: Code(s): Z00.00 - Encounter for general adult medical examination without abnormal findings Category: Medical Plan: Repeat in a year. (2) Mild recurrent major depression: Code(s): F33.0 - Major depressive disorder, recurrent, mild Category: Medical Plan: Continue Seroquel. Follow-up with psychiatry and counseling. (3) Sacroiliitis: Comment: FINDINGS: There are intervertebral disc spacers at L4-L5 and L5-S1. The bones are osteopenic. The sacroiliac joints are intact. There are degenerative changes in the lower lumbar spine and in the sacroiliac joints. IMPRESSION: The bones are osteopenic. Degenerative changes in the sacroiliac joints and visualized lower lumbar spine. A displaced fracture is not clearly identified however if there remains clinical suspicion for fracture, MRI would be more sensitive. Pain management contract signed 11/17/23 Code(s): M46.1 - Sacroiliitis, not elsewhere classified Category: Medical Plan: Continue opiates as needed. Aware that can cause addiction and sedation. Pain management contract signed today. Urine toxicology also done today. (4) Osteopenia: Code(s): M85.80 - Other specified disorders of bone density and structure, unspecified site Category: Medical Plan: Will be evaluated by Rheumatology. Orders: Orders Influenza [id number] Immunization Today Z23 - Encounter for immunization Drug Screen Urine Today M46.1 - Sacroiliitis, not elsewhere classified Lipid Panel 6 Months E78.5 - Hyperlipidemia, unspecified AMB Urinalysis Automated Today R30.0 - Dysuria Opiates GCMS Expanded, Ur Today M46.1 - Sacroiliitis, not elsewhere classified Medications: New sulfamethoxazole-trimethoprim 800-160 mg (Bactrim DS) 1 tab PO BID 6 tabs 0RF 3 days Refilled oxycodone Partial Fill upon patient request. 10 mg (2 x 5 mg) PO Q6H PRN 240 tabs 0RF pain 30 days cyclobenzaprine 5 mg PO BID PRN 60 tabs 0RF muscle spasm 30 days M26.609 - Un specified temporomandibular joint disorder, unspecified side alprazolam 0.5 mg PO BID PRN 60 tabs 0RF anxiety 30 days
[2023-11-17 10:00] VITALS: BP 122/68; BMI 20.4
== END 2023-11-17 10:47 | disposition home or self-care (01) ==
PROVIDERS: PCP Internal Medicine; Visit Provider Internal Medicine
DX: Z00.00 Encounter for general adult medical examination without abnormal findings (principal); F33.0 Major depressive disorder, recurrent, mild; M46.1 Sacroiliitis, not elsewhere classified; F17.210 Nicotine dependence, cigarettes, uncomplicated; M85.80 Other specified disorders of bone density and structure, unspecified site; R30.0 Dysuria

== ENCOUNTER 2023-11-17 09:55 | Outpatient (REF) | payer OTHER, SELFPAY ==
[2023-11-17 18:15] LABS: Amphetamine Screen Urine Not Detected (Not Detect); Barbiturates, Urine Not Detected (Not Detect); Benzodiazepines Screen Urine POSITIVE (Not Detect); Buprenorphine Scr Not Detected (Not Detect); Cannabinoid Screen Urine Not Detected (Not Detect); Cocaine Screen Urine Not Detected (Not Detect); Fentanyl, urine Not Detected (Not Detect); Methadone Screen, Urine Not Detected (Not Detect); Opiate Screen Urine Not Detected (Not Detect); Oxycodone Screen Urine Positive (Not Detect); Phencyclidine Screen Urine Not Detected (Not Detect)
[2023-11-22 11:53] LABS: Codeine, Ur NEGATIVE; Hydrocodone, Ur NEGATIVE; Hydromorphone, Ur NEGATIVE; Morphine, Ur NEGATIVE; Norhydrocodone, Ur NEGATIVE
[2023-11-22 11:54] LABS: Noroxycodone, Ur 962 (H); Oxycodone, Ur 118 (H); Oxymorphone, Ur 448 (H)
== END 2023-11-17 09:56 | disposition home or self-care (01) ==
LOC: HO.LNP 09:55
PROVIDERS: PCP Internal Medicine; Visit Provider Internal Medicine
DX: Z00.00 Encounter for general adult medical examination without abnormal findings (principal); F33.0 Major depressive disorder, recurrent, mild; M46.1 Sacroiliitis, not elsewhere classified; M85.80 Other specified disorders of bone density and structure, unspecified site; Z79.899 Other long term (current) drug therapy; Z23 Encounter for immunization
CPT/HCPCS: 80307; 80365; 81003; 90471; 90656; 96127; 99212; 99397; G0480

== ENCOUNTER 2023-11-24 10:31 | Outpatient (AMB) | payer OTHER, SELFPAY ==
[2023-11-24 10:42] VITALS: BP 102/68; PULSE 72; BMI 20.4
--- NOTE | 2023-11-24 10:42 | MHC.OFFVIS ---
Vital Signs 11/24/23 10:42 Height 5 ft 1 in Weight 108 lb BMI 20.4 BP 102/68 Blood Pressure Location Lt brachial Position Sitting Pulse 72 Intake Visit Reasons: 6 month follow up CIC, Gerd Intake Note: Grazyna presents to 6 months follow up of CIC and GERD. CC: The patient Loss Prevention Research Engineer Required: No Accompanied by: Self / Same As Patient Allergies mold Allergy (Intermediate, Verified 11/24/23 10:48) Hives alendronate sodium Adverse Reaction (Verified 11/24/23 10:50) Chest Pain dust Allergy (Intermediate, Uncoded 11/17/23 10:18) sneeze, watery eyes food sensitivities i.e. banana Allergy (Intermediate, Uncoded 11/17/23 10:18) rash pollens Allergy (Intermediate, Uncoded 11/17/23 10:18) sneeze, watery eyes HPI HPI 6 month follow up CIC, Gerd: Details: Assessment & Plan (1) Chronic idiopathic constipation: Code(s): K59.04 - Chronic idiopathic constipation (2) GERD (gastroesophageal reflux disease): Code(s): K21.9 - Gastro-esophageal reflux disease without esophagitis Qualifiers: Esophagitis presence: without esophagitis Qualified Code(s): K21.9 - Gastro-esophageal reflux disease without esophagitis Plan She was just dx'ed with osteopenia and was put on fosamax, and she says that she has been having more CP and she is fearful that it will effect her TMJ. She has been on it for 5 weeks. I let her know she should give the medication a good try because it is affective but if she feels like it is causing her trouble she can discuss this with the prescriber as there are other options. She continues on her pantoprazole 40mg bid and her LInzess 290mcg with dulcolax for breakthrough with good control of her GI conditions. ROV 6 mos. Medications: Refilled linaclotide (Linzess) 290 mcg PO QAM 30 caps 6RF 30 days K59.04 - Chronic idiopathic constipation bisacodyl (Dulcolax (bisacodyl)) 10 mg (2 x 5 mg) PO BEDTIME 60 tabs 6RF pantoprazole 40 mg PO BID 60 tabs 6RF K21.9 - Gastro-esophageal reflux disease without esophagitis TODAY'S VISIT She will be having CT r/t numbness in her left forehead. She had temporal/mandibular surgery extensively int he past and it is becoming more painful. She also had to go off of her alendronate r/t s/e of CP and stomach upset. She will be seeing our new plastic finisher. She also just went through a severe dental infection with severe right sided swelling. She had to have the tooth pulled r/t deep root canal infection. She continues on her pantoprazole 40mg bid and her LInzess 290mcg with dulcolax for breakthrough with good control of her GI conditions ROV 6 mos. [facility] Medical History TMJ (temporomandibular joint disorder) Lockjaw Mild recurrent major depression SONALI (generalized anxiety disorder) Polyarthralgia Right hip pain Right shoulder pain Depression with anxiety Mild asthma Chest pain Dyslipidemia Fibromyalgia Surgical History History of tooth extraction TMJ derangement History of mammogram History of bunionectomy History of tubal ligation History of laparoscopic cholecystectomy History of lumbar fusion History of section History of esophagogastroduodenoscopy (EGD) Hx of colonoscopy Family History Father Heart failure Mother Heart problem Brother Stomach tumor (benign) Brother Kidney problem Stroke Brother Myocardial infarction Brother Cerebral brain hemorrhage Heart problem Social History Housing: Apartment Alcohol intake: never Patient Tobacco Use Status: Current everyday Tobacco user Tobacco use type: Cigarette Cigarette Packs Per Day: 0.5 Cigarettes Per Day: 10 e-Cigarette/Vaping Use: Never Used Second Hand Smoke Exposure: Yes service: No Current occupational status: unemployed Cognitive needs: No Hearing needs: No Vision needs: Yes Review of Systems Const Denies fatigue, Denies fever(s), Denies night sweats, Denies poor appetite and Denies weight loss ENT Reports Normal hearing present, Denies dental pain, Denies dysphagia, Denies hearing loss, Denies mouth pain, Denies odynophagia, Denies throat swelling, Denies tongue swelling and Reports other (Dentition adequate) Card Reports no additional complaints Resp Reports no additional complaints GI Details: Denies abdominal pain, Denies melena, Denies bloating, Denies hematochezia, Reports constipation, Denies GI cramping, Denies dysphagia, Denies excessive flatus, Denies early satiety, Reports heartburn, Denies diarrhea, Denies nausea, Denies odynophagia, Denies vomiting and Denies hematemesis Musc Reports myalgias and Reports arthralgias Skin/Breast Denies pruritus, Denies lesions, Denies rash and Denies jaundice Neuro Reports Normal hearing present, Denies Abnormal speech present and Reports paresthesias Endo Denies fatigue Aller/Immun Denies throat swelling and Denies tongue swelling Physical Exam Vital Signs: Last Vital Signs Pulse 72 11/24/23 10:42 BP 102/68 11/24/23 10:42 BMI result Body Mass Index 20.4 Const General: cooperative, no acute distress, well developed and well groomed Nutritional Appearance: well nourished and thin Orientation/consciousness: oriented to person, oriented to place and oriented to time Limitations: No language barrier HEENT Head: Yes normocephalic and Yes atraumatic Eyes General: appearance normal, both eyes and all related structures Pupils: Equal, round and reactive pupils present Neck Neck: Yes normal visual inspection and Yes no lymphadenopathy Thyroid: Thyroid normal Resp Effort & Inspection: normal respiratory effort and able to speak in complete sentences Auscultation: clear to auscultation bilaterally Cardio Rate: regular rate Rhythm: regular rhythm Heart sounds: Normal, physiologic split S2 sound present Peripheral pulses: radial pulses present and posterior tibial pulses present GI Inspection: No distended and No Abdominal panniculus present Palpation (GI): Soft to palpation, nontender, no guarding, not rigid and No hepatosplenomegaly present Percussion: Yes normal to percussion Auscultation: normal bowel sounds Rectal Exam - Female: deferred Skin General skin exam: no rashes or lesions noted, turgor normal, skin not dry, no jaundice, No spider nevi and no striae Rashes: no rashes Nails: normal Neuro General: oriented to person, oriented to place and oriented to time Cranial nerves: Yes Equal, round and reactive pupils present and Yes Normal hearing present Speech: No Abnormal speech present Extrem General: Yes normal to inspection, No clubbing, No cyanosis and No edema Psych Appearance: grossly normal and well kempt Mental Status: mental status grossly normal Speech and movement: Normal speech and movement present Affect: normal affect Attitude: cooperative Thought process: Normal thought process present and not confabulating Thought content: Normal thought content present Insight: Fair insight present (Psych) Judgement: Fair judgement present (Psych) Assessment & Plan Assessment & Plan (1) Chronic idiopathic constipation: Code(s): K59.04 - Chronic idiopathic constipation Category: Medical (2) GERD (gastroesophageal reflux disease): Code(s): K21.9 - Gastro-esophageal reflux disease without esophagitis Category: Medical Qualifiers: Esophagitis presence: without esophagitis Qualified Code(s): K21.9 - Gastro-esophageal reflux disease without esophagitis Plan She will be having CT r/t numbness in her left forehead. She had temporal/mandibular surgery extensively int he past and it is becoming more painful. She also had to go off of her alendronate r/t s/e of CP and stomach upset. She will be seeing our new plastic finisher. She also just went through a severe dental infection with severe right sided swelling. She had to have the tooth pulled r/t deep root canal infection. She continues on her pantoprazole 40mg bid and her LInzess 290mcg with dulcolax for breakthrough with good control of her GI conditions ROV 6 mos. Medications: Refilled bisacodyl (Dulcolax (bisacodyl)) 10 mg (2 x 5 mg) PO BEDTIME 60 tabs 6RF linaclotide (Linzess) 290 mcg PO QAM 30 caps 6RF 30 days K59.04 - Chronic idiopathic constipation pantoprazole 40 mg PO BID 60 tabs 6RF K21.9 - Gastro-esophageal reflux disease without esophagitis Coding Level of Care Code Est Pt Level 3 (64566) Diagnoses Chronic idiopathic constipation K59.04 Gastroesophageal reflux disease without esophagitis K21.9 Esophagitis presence: without esophagitis
== END 2023-11-24 11:22 | disposition home or self-care (01) ==
PROVIDERS: PCP Internal Medicine; Visit Provider Nurse Practitioner
DX: K59.04 Chronic idiopathic constipation (principal); K21.9 Gastro-esophageal reflux disease without esophagitis
CPT/HCPCS: 99213

== ENCOUNTER → 2023-11-24 10:31 | Outpatient (BNVA) | payer OTHER, SELFPAY | PROVIDERS: PCP Internal Medicine; Visit Provider Nurse Practitioner | DX: K59.04 Chronic idiopathic constipation (principal); K21.9 Gastro-esophageal reflux disease without esophagitis | CPT/HCPCS: 99212 ==

== ENCOUNTER 2023-12-03 08:19 | Outpatient (AMB) | payer OTHER, SELFPAY ==
[2023-12-03 08:27] VITALS: BP 110/66; PULSE 80; O2SAT 98; BMI 20.9
--- NOTE | 2023-12-03 08:27 | A.OFFVIS_ITS ---
Vital Signs 12/03/23 08:27 Height 5 ft 1 in Weight 110 lb 10.753 oz BMI 20.9 BP 110/66 Blood Pressure Location Lt brachial Position Sitting Pulse 80 Pulse Source Pulse Oximeter Pulse Oximetry (%) 98 Oxygen Delivery Method Room Air Intake Visit Reasons: Osteopenia/lm Intake Note: Patient is a new patient who was internally referred by DATA MANAGER for osteopenia. Allergies mold Allergy (Intermediate, Verified 12/03/23 08:29) Hives alendronate sodium Adverse Reaction (Verified 12/03/23 08:29) Chest Pain dust Allergy (Intermediate, Uncoded 12/03/23 08:29) sneeze, watery eyes food sensitivities i.e. banana Allergy (Intermediate, Uncoded 12/03/23 08:29) rash pollens Allergy (Intermediate, Uncoded 12/03/23 08:29) sneeze, watery eyes Medication List - Last Reconciled 12/03/23 by Dinorah Ford MD albuterol sulfate 90 mcg/actuation 2 puffs inhalation Q6-8H 30 days alprazolam 0.5 mg PO BID PRN 30 days bisacodyl (Dulcolax (bisacodyl)) 10 mg (2 x 5 mg) PO BEDTIME calcium carbonate-vitamin D3 600 mg-12.5 mcg (500 unit) (Calcium 600 with Vitamin D3) 1 cap PO .once a day 90 days cyclobenzaprine 5 mg PO BID PRN 30 days duloxetine 60 mg PO BID gabapentin 600 mg PO TID hydrocortisone 1% (Anti-Itch (hydrocortisone)) 1 appl topical BID PRN 30 days linaclotide (Linzess) 290 mcg PO QAM 30 days magnesium oxide 500 mg PO DAILY 30 days oxycodone 10 mg (2 x 5 mg) PO Q6H PRN 30 days pantoprazole 40 mg PO BID quetiapine 100 mg PO BEDTIME 90 days quetiapine 400 mg PO BEDTIME 90 days HPI Comments Details: Patient is a 67 y.o. female s/p temperomadibular surgery 2/2, polyarticular OA involving hands and knees, and depression who presents for evaluation of low bone density Risk Factor Assessment: Age: 67 Race: Female Menarche: 15 years. Menopause: 53 years Family history: Osteoporosis in mom and sisters. But no falls with fractures Calcium/vitamin-D intake: Takes supplements prescribed by primary. Does not drink milk, only with coffee in the AM. Yogurts. Drinks Ensure Estrogen deficiency: None Lifestyle: gardening Cigarette smokin cigarettes/day since age of 17. 25 pack/years Excessive alcohol: Does not drink alcohol Excessive caffeine: Drinks 3 cups/day High-risk medication assessment: Glucocorticoids. In the past would get short courses but nothing in the past several years [facility] Medical History TMJ (temporomandibular joint disorder) Lockjaw Mild recurrent major depression SONALI (generalized anxiety disorder) Polyarthralgia Right hip pain Right shoulder pain Depression with anxiety Mild asthma Chest pain Dyslipidemia Fibromyalgia Surgical History History of tooth extraction TMJ derangement History of mammogram History of bunionectomy History of tubal ligation History of laparoscopic cholecystectomy History of lumbar fusion History of section History of esophagogastroduodenoscopy (EGD) Hx of colonoscopy Family History Father Heart failure Mother Heart problem Brother Stomach tumor (benign) Brother Kidney problem Stroke Brother Myocardial infarction Brother Cerebral brain hemorrhage Heart problem Social History Housing: Apartment Alcohol intake: never Patient Tobacco Use Status: Current everyday Tobacco user Tobacco use type: Cigarette Cigarette Packs Per Day: 0.5 Cigarettes Per Day: 10 e-Cigarette/Vaping Use: Never Used Second Hand Smoke Exposure: Yes service: No Current occupational status: unemployed Cognitive needs: No Hearing needs: No Vision needs: Yes Review of Systems Const Details: Review of Systems Constitutional: Denies fever, chills, weight loss ENT: Denies vision changes, eye pain or eye redness, dental caries, dry mouth GI: Denies nausea, vomiting, diarrhea, abdominal pain, change in BM Pulm: Denies SOB, DANIELS, hemoptysis, wheezing Cards: Denies chest pain, palpitations Skin: Denies Raynaud's, rash, nail changes, photosensitivity, 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 ?Gait normal. Constitutional Mucous membranes pink and moist patient alert and cooperative HEENT Conjunctiva and sclera clear. ?Pupils equal round and reactive to light. ?No lymphadenopathy. ?Normal dentition. Respiratory System Normal respiratory effort and able to speak in complete sentences. ?Clear to auscultation bilaterally. ?No crackles, rales, rhonchi, wheezes heard. Cardiac System Regular rate and rhythm. ?S1 and S2 heard no murmurs. ?Radial pulses intact bilaterally MSK Hands:.??Normal pain-free range of motion without tenderness, swelling, increased warmth or erythema. Able to make a full fist and has a good policy value calculator strength. Heberden's nodes noted. Wrists: Normal pain-free range of motion without tenderness, swelling, increased warmth or erythema. Elbows: Full range of motion without pain. No tenderness, weakness, swelling, increased warmth or erythema. Shoulders: Full range of motion without pain. No tenderness, weakness, swelling, increased warmth or erythema. Hips: Full range of motion without pain. Hip bursa:.??No tenderness. Knees:.???Normal pain-free range of motion without tenderness, swelling, increased warmth or erythema.?No effusion or crepitations Ankles:.??Normal pain-free range of motion without tenderness, swelling, increased warmth or erythema. Feet:.??Normal pain-free range of motion without tenderness, swelling, increased warmth or erythema. Results Reviewed Results Reviewed: DEXA 02/2023 FINDINGS: LEFT FEMUR, NECK: Current: BMD 0.700 g/cm2, Z-score -0.6, T-score -2.4, osteopenia. Prior: BMD 0.888 g/cm2. Baseline: BMD 0.880 g/cm2. LEFT FEMUR, TOTAL: Current: BMD 0.704 g/cm2, Z-score -0.8, T-score -2.4, osteopenia, 27.6% decrease from previous, 26.1% decrease from baseline (<5% change is not significant). Prior: BMD 0.972 g/cm2. Baseline: BMD 0.952 g/cm2. AP SPINE L1-L3 (excluding L4): The data of L1-L4 has been changed to exclude the L4 vertebral body, because metallic artifact at this level may cause overestimation of lumbar spine density. Current: BMD 0.989 g/cm2, Z-score 0.6, T-score -1.5, osteopenia, 5.1% decrease from previous, 2.7% increase from baseline (<5% change is not significant). Prior: BMD 1.042 g/cm2. Baseline: BMD 0.963 g/cm2. Assessment & Plan Assessment & Plan (1) Osteopenia: Code(s): M85.80 - Other specified disorders of bone density and structure, unspecified site Category: Medical Qualifiers: Osteopenia location: multiple sites Qualified Code(s): M85.89 - Other specified disorders of bone density and structure, multiple sites Plan: #Osteopenia Patient with osteopenia that was previously started on alendronate but however did not tolerate it. To be honest her FRAX index is not high enough to warrant starting in treatment but her T-score is very close to osteoporosis and it has been getting worse when compared to her baseline DEXA, with the left femur decreasing almost 30% between the last DXA. Her risk factors for osteoporosis include her age, her sex, her smoking history and currently in menopause. Had a long discussion with patient about treatment options. Current options for her include Prolia (denosumab) and Evenity (romosuzumab). Given her extensive history of temporomandibular interventions I was leaning towards Evenity however she does have a very strong family history of stroke and PA (her brother, her mother). And even after a year of Evenity she would still need to go on a bisphosphonate for vermin exterminator. We will proceed with denosumab. Calcium and vitamin-D within normal limits. Recommended her to continue her calcium and vitamin-D supplementation prescribed by her PCP. Plan I spent 30 minutes reviewing the record and labs, seeing the patient, discussing the treatment plan and documenting in the medical record ? For next visit: * Prolia injection and labs Orders: Orders Comprehensive Met. Panel 1 Month E55.9 - Vitamin D deficiency, unspecified, M85.80 - Other specified disorders of bone density and structure, unspecified site Vitamin D 25-OH (D2 and D3) 1 Month E55.9 - Vitamin D deficiency, unspecified, M85.80 - Other specified disorders of bone density and structure, unspecified site Calcium, Ionized 1 Month E55.9 - Vitamin D deficiency, unspecified, M85.80 - Other specified disorders of bone density and structure, unspecified site Medications: New denosumab (Prolia) 60 mg subcut [id number] 1 mL 0RF M85.80 - Other specified disorders of bone density and structure, unspecified site Coding Level of Care Code New Pt Level 3 (92274) Diagnoses Osteopenia of multiple sites M85.89 Osteopenia location: multiple sites
== END 2023-12-03 09:14 | disposition home or self-care (01) ==
PROVIDERS: PCP Internal Medicine; Visit Provider Student in an Organized Health Care Education/Training Program
DX: M85.89 Other specified disorders of bone density and structure, multiple sites (principal)
CPT/HCPCS: 99203

== ENCOUNTER → 2023-12-03 08:19 | Outpatient (BNVA) | payer OTHER, SELFPAY | PROVIDERS: PCP Internal Medicine; Visit Provider Student in an Organized Health Care Education/Training Program | DX: M85.89 Other specified disorders of bone density and structure, multiple sites (principal) | CPT/HCPCS: 99202 ==

== ENCOUNTER 2023-12-06 07:12 | Outpatient (REF) | payer OTHER, SELFPAY ==
--- NOTE | ~2023-12-06 | CT_ITS ---
EXAMINATION: CT HEAD WITHOUT CONTRAST CLINICAL INFORMATION: Migraines, numbness in the forehead. COMPARISON: MR brain 09/11/2006. TECHNIQUE: Contiguous axial imaging was performed from the skull base to vertex without intravenous administration of contrast. This CT examination was performed using dose optimization techniques as appropriate, variously including the following: *Automated exposure control *Adjustment of mA and/or kV according to patient size (this includes techniques or standardized protocols for targeted exams where dose is matched to indication/reason for exam; i.e. extremities or head) *Use of iterative reconstruction technique DLP: 634 mGy-cm FINDINGS: There is no evidence of acute intracranial hemorrhage or edematous territorial infarction. A few foci of hypoattenuation in the periventricular and deep white matter are consistent with mild microangiopathy. Villa-white matter differentiation is preserved. Proportional prominence of the ventricles and sulcal spaces. No evidence for obstructive hydrocephalus. No abnormal mass effect or midline shift. No extra-axial fluid collections. No acute soft tissue or osseous abnormalities. The mastoid air cells and paranasal sinuses are clear. Severe degenerative osteoarthritis of the temporomandibular joints with a metallic object in the right mandibular condyle, recommend correlation with prior surgical history. CT/CT head/brain wo IV con IMPRESSION: 1. No evidence of acute intracranial hemorrhage or edematous territorial infarction. 2. Mild chronic microangiopathy and generalized cerebral volume loss. 3. Severe degenerative osteoarthritis in the temporomandibular joints with a metallic density in the right mandibular condyle, recommend correlation with prior surgical history. Electronically signed by: Jolynn Massey MD 12/06/2023 11:20 AM EDT
== END 2023-12-06 07:13 | disposition home or self-care (01) ==
LOC: HO.CT 07:12
PROVIDERS: PCP Internal Medicine; Visit Provider Internal Medicine
DX: G43.909 Migraine, unspecified, not intractable, without status migrainosus (principal)
CPT/HCPCS: 70450

== ENCOUNTER 2023-12-13 14:00 | Outpatient (AMB) | payer OTHER, SELFPAY ==
--- NOTE | 2023-12-13 14:14 | A.OFFPC_ITS ---
Vital Signs 12/13/23 14:15 Height 5 ft 1 in Weight 111 lb BMI 21.0 BP 132/70 Blood Pressure Location Lt brachial Position Sitting Intake Visit Reasons: CT Scan Results f/u Senior Planning Analyst Required: No Accompanied by: Self / Same As Patient Allergies mold Allergy (Intermediate, Verified 12/13/23 14:31) Hives alendronate sodium Adverse Reaction (Verified 12/13/23 14:31) Chest Pain dust Allergy (Intermediate, Uncoded 12/13/23 14:31) sneeze, watery eyes food sensitivities i.e. banana Allergy (Intermediate, Uncoded 12/13/23 14:31) rash pollens Allergy (Intermediate, Uncoded 12/13/23 14:31) sneeze, watery eyes Medication List - Last Reconciled 12/13/23 by Grazyna Mcgraw MD albuterol sulfate 90 mcg/actuation 2 puffs inhalation Q6-8H 30 days alprazolam 0.5 mg PO BID PRN 30 days bisacodyl (Dulcolax (bisacodyl)) 10 mg (2 x 5 mg) PO BEDTIME calcium carbonate-vitamin D3 600 mg-12.5 mcg (500 unit) (Calcium 600 with Vitamin D3) 1 cap PO .once a day 90 days cyclobenzaprine 5 mg PO BID PRN 30 days denosumab (Prolia) 60 mg subcut [id number] duloxetine 60 mg PO BID gabapentin 600 mg PO TID hydrocortisone 1% (Anti-Itch (hydrocortisone)) 1 appl topical BID PRN 30 days linaclotide (Linzess) 290 mcg PO QAM 30 days magnesium oxide 500 mg PO DAILY 30 days oxycodone 10 mg (2 x 5 mg) PO Q6H PRN 30 days pantoprazole 40 mg PO BID quetiapine 100 mg PO BEDTIME 90 days quetiapine 400 mg PO BEDTIME 90 days Tobacco use date assessed: 10/25/23 Fall risk assessment: No Falls in past year Last assessed Fall Risk: 12/13/23 Dental Screening Dental Screen Date: 11/17/23 HPI HPI Comments History of Present Illness Details This is a 67-year-old female with fibromyalgia, mild recurrent major depression, anxiety and dyslipidemia that comes today complaining of left side headache with numbness and tingling. She has severe temporomandibular joint arthritis by head CT and has had surgical repair bilateral. There is still some nerve damage that might explain this symptoms. She follows with Neurology. On gabapentin and duloxetine for fibromyalgia. Depression stable with medications and follow by Psychiatry as well as anxiety. On statins for her dyslipidemia and shows no side effects. No chest pain or shortness on breath. She is a smoker and was advised to quit and is willing to try nicotine patches. [facility] Medical History TMJ (temporomandibular joint disorder) [place] Mild recurrent major depression SONALI (generalized anxiety disorder) Polyarthralgia Right hip pain Right shoulder pain Depression with anxiety Mild asthma Chest pain Dyslipidemia Fibromyalgia Surgical History History of tooth extraction TMJ derangement History of mammogram History of bunionectomy History of tubal ligation History of laparoscopic cholecystectomy History of lumbar fusion History of section History of esophagogastroduodenoscopy (EGD) Hx of colonoscopy Family History Father Heart failure Mother Heart problem Brother Stomach tumor (benign) Brother Kidney problem Stroke Brother Myocardial infarction Brother Cerebral brain hemorrhage Heart problem Social History Housing: Apartment Alcohol intake: never Patient Tobacco Use Status: Current everyday Tobacco user Tobacco use type: Cigarette Cigarette Packs Per Day: 0.5 Cigarettes Per Day: 10 e-Cigarette/Vaping Use: Never Used Second Hand Smoke Exposure: Yes service: No Current occupational status: unemployed Cognitive needs: No Hearing needs: No Vision needs: Yes Questionnaire Thrive Questionnaire Date Thrive assessed: 11/17/23 I am a: Patient What is your living situation today?: I choose not to answer this question Within the past 12 months, did the food you bought not last and you didn't have the money to get more?: I choose not to answer this question Within the past 12 months, did you worry whether your food would run out before you got money to buy more?: I choose not to answer this question Do you have trouble paying for medicines?: I choose not to answer this question Do you have trouble getting transportation to medical appointments?: I choose not to answer this question Do you have trouble paying your heating and electricity bill?: I choose not to answer this question Do you have trouble taking care of your child, family member or friend?: I choose not to answer this question Do you have trouble with day-to-day activities such as bathing, preparing meals, shopping, managing finances, etc.?: I choose not to answer this question Are you currently unemployed and looking for a job?: No Are you interested in more education?: I choose not to answer this question Please select the resources that you would like help with: None THRIVE Score: 0 SONALI-7 AMB Questionnaire SONALI-7 Date SONALI - 7 assessed: 05/13/23 Source: Developed by Drs. Chago Baer, Kassandra Alexander, Prashanth Cisse and colleagues, with an educational jhonatan from [employer] Review of Systems Const All systems reviewed & are unremarkable except as noted in HPI and below Card Denies chest pain at rest, Denies chest pain with activity, Denies edema, Denies irregular heart rhythm, Denies claudication, Denies dyspnea, Denies dyspnea on exertion, Denies orthopnea, Denies paroxysmal nocturnal dyspnea and Denies slow heart rate Resp Denies cough, Denies dyspnea and Denies dyspnea on exertion Musc Denies abnormal gait, Denies atrophy, Denies deformity and Denies limited range of motion Skin/Breast Denies bleeding lesions, Denies changing lesions and Denies rash Neuro Denies abnormal gait and Denies lack of coordination Physical exam (Primary Care) Vital Signs: Last Vital Signs BP 132/70 12/13/23 14:15 BMI result Body Mass Index 21.0 Tobacco/Smoking Status: Tobacco use Status Tobacco use date assessed 10/25/23 12/13/23 14:15 Patient Tobacco Use Status Current everyday Tobacco 12/13/23 14:15 Tobacco use type Cigarette 12/13/23 14:15 e-Cigarette/Vaping Use Never Used 12/13/23 14:15 Are you ready to quit: Yes Tobacco cessation counseling provided: Yes Items discussed: Nicotine replacement and QuitWorks Relapse Prevention: discussed the importance of a supportive environment, discussed extending NRT, discussed negative mood or depression after quitting, weight gain after smoking is common and discussed dietary, exercise and/or lifestyle changes Number of minutes spent counselin CPT code: 57365 - 4-10 Minutes Thrive Assessment: Date of Thrive Assessment Date Thrive assessed 11/17/23 12/13/23 14:15 Resp Effort & Inspection: normal respiratory effort Auscultation: clear to auscultation bilaterally Cardio Jugular venous distension: no JVD Rate: regular rate Rhythm: regular rhythm Heart sounds: S1 normal heart sound present and S2 normal heart sound present Extrem General: Yes full ROM Coding Level of Care Code Est Pt Level 4 (46411) Complex EM visit Add On G2211 Diagnoses Fibromyalgia M79.7 Dyslipidemia E78.5 Mild recurrent major depression F33.0 SONALI (generalized anxiety disorder) F41.1 Additional Codes Vital Signs *Quality* - CPT code: 92780 - 4-10 Minutes ([id number]) Time Spent (min) 25 Assessment & Plan Assessment & Plan (1) Fibromyalgia: Code(s): M79.7 - Fibromyalgia Category: Medical Plan: Continue gabapentin and duloxetine. (2) Dyslipidemia: Code(s): E78.5 - Hyperlipidemia, unspecified Category: Medical Plan: Continue statins. (3) Mild recurrent major depression: Code(s): F33.0 - Major depressive disorder, recurrent, mild Category: Medical Plan: Continue duloxetine. Follow-up with psychiatry. (4) SONALI (generalized anxiety disorder): Code(s): F41.1 - Generalized anxiety disorder Category: Medical Plan: Continue benzodiazepines as needed. Follow-up with psychiatry. Medications: New nicotine 1 patch transdermal DAILY 28 ea 0RF 28 days
[2023-12-13 14:15] VITALS: BP 132/70; BMI 21.0
== END 2023-12-13 14:40 | disposition home or self-care (01) ==
LOC: HO.HMCH 14:01
PROVIDERS: PCP Internal Medicine; Visit Provider Internal Medicine
DX: M79.7 Fibromyalgia (principal); E78.5 Hyperlipidemia, unspecified; F33.0 Major depressive disorder, recurrent, mild; F41.1 Generalized anxiety disorder

== ENCOUNTER → 2023-12-13 14:00 | Outpatient (BNVA) | payer OTHER, SELFPAY | PROVIDERS: PCP Internal Medicine; Visit Provider Internal Medicine | DX: M79.7 Fibromyalgia (principal); E78.5 Hyperlipidemia, unspecified; F33.0 Major depressive disorder, recurrent, mild; F41.1 Generalized anxiety disorder | CPT/HCPCS: 99212 ==

== ENCOUNTER 2023-12-29 10:46 | Outpatient (REF) | payer OTHER, SELFPAY ==
[2023-12-29 12:30] LABS: Alanine Aminotransferase 19 U/L (0-31); Alkaline Phosphatase 69 U/L (39-117); Anion Gap 11 (12-20); Aspartate Amino Transferase 26 U/L (5-31); Bilirubin Total 0.3 mg/dL (0.0-1.0); Blood Urea Nitrogen 16 mg/dL (9-16); Carbon Dioxide 30 mmol/L (22-29); Chloride 102 mmol/L (96-108); Estimated Glomerular Filt Rate > 60; Glucose Random 124 mg/dL (60-115); Potassium 3.5 mmol/L (3.3-5.1); Sodium 139 mmol/L (135-145); Total Protein 6.7 g/dL (6.5-8.0)
[2024-01-01 10:59] LABS: Calcium, Ionized 5.1 mg/dL (4.7-5.5)
[2024-01-04 15:04] LABS: Vitamin D 25-OH, D2 <4 ng/mL; Vitamin D 25-OH, D3 37 ng/mL; Vitamin D 25-OH, Total 37 ng/mL (30-100)
== END 2023-12-29 10:47 | disposition home or self-care (01) ==
LOC: HO.LAB 10:46
PROVIDERS: PCP Internal Medicine; Visit Provider Student in an Organized Health Care Education/Training Program
DX: E55.9 Vitamin D deficiency, unspecified (principal); M85.80 Other specified disorders of bone density and structure, unspecified site
CPT/HCPCS: 36415; 80053; 82306; 82330

== ENCOUNTER 2024-01-04 11:20 | Outpatient (AMB) | payer OTHER, SELFPAY ==
[2024-01-04 11:25] VITALS: BP 110/64; PULSE 80; O2SAT 99; BMI 21.0
--- NOTE | 2024-01-04 11:25 | MHC.OFFVIS ---
Vital Signs 01/04/24 11:25 Height 5 ft 1 in Weight 111 lb 5.335 oz BMI 21.0 BP 110/64 Blood Pressure Location Lt brachial Position Sitting Pulse 80 Pulse Source Pulse Oximeter Pulse Oximetry (%) 99 Oxygen Delivery Method Room Air Intake Visit Reasons: Osteopenia/prolia/CM APT Intake Note: Patient is here to follow up on osteopenia and Prolia shot. Allergies mold Allergy (Intermediate, Verified 01/04/24 11:30) Hives alendronate sodium Adverse Reaction (Verified 01/04/24 11:30) Chest Pain dust Allergy (Intermediate, Uncoded 01/04/24 11:30) sneeze, watery eyes food sensitivities i.e. banana Allergy (Intermediate, Uncoded 01/04/24 11:30) rash pollens Allergy (Intermediate, Uncoded 01/04/24 11:30) sneeze, watery eyes Medication List - Last Reconciled 01/04/24 by Dinorah Ford MD albuterol sulfate 90 mcg/actuation 2 puffs inhalation Q6-8H 30 days alprazolam 0.5 mg PO BID PRN 30 days bisacodyl (Dulcolax (bisacodyl)) 10 mg (2 x 5 mg) PO BEDTIME calcium carbonate-vitamin D3 600 mg-12.5 mcg (500 unit) (Calcium with Vit D3) 1 cap PO .once a day 90 days cyclobenzaprine 5 mg PO BID PRN 30 days denosumab (Prolia) 60 mg subcut [id number] duloxetine 60 mg PO BID gabapentin 600 mg PO TID hydrocortisone 1% (Anti-Itch (hydrocortisone)) 1 appl topical BID PRN 30 days linaclotide (Linzess) 290 mcg PO QAM 30 days magnesium oxide 500 mg PO DAILY 30 days nicotine 1 patch transdermal DAILY 28 days oxycodone 10 mg (2 x 5 mg) PO Q6H PRN 30 days pantoprazole 40 mg PO BID quetiapine 100 mg PO BEDTIME 90 days quetiapine 400 mg PO BEDTIME 90 days HPI Comments Details: Patient is a 67 y.o. female s/p temperomadibular surgery 2/2, polyarticular OA involving hands and knees, and depression follow-up of osteoporosis Interval History: Last seen 11/2023 with me. At that time she was establishing care for low bone density on a background of intolerance to alendronate. Here today for Prolia injection No falls and no fractures since last visit Rheumatologic History: Risk Factor Assessment: Age: 67 Race: Female Menarche: 15 years. Menopause: 53 years Family history: Osteoporosis in mom and sisters. But no falls with fractures Calcium/vitamin-D intake: Takes supplements prescribed by primary. Does not drink milk, only with coffee in the AM. Yogurts. Drinks Ensure Estrogen deficiency: None Lifestyle: gardening Cigarette smokin cigarettes/day since age of 17. 25 pack/years Excessive alcohol: Does not drink alcohol Excessive caffeine: Drinks 3 cups/day High-risk medication assessment: Glucocorticoids. In the past would get short courses but nothing in the past several years Current Rheumatology Medication(s): Prolia 60mg every 6 months [facility] Medical History TMJ (temporomandibular joint disorder) Lockjaw Mild recurrent major depression SONALI (generalized anxiety disorder) Polyarthralgia Right hip pain Right shoulder pain Depression with anxiety Mild asthma Chest pain Dyslipidemia Fibromyalgia Surgical History History of tooth extraction TMJ derangement History of mammogram History of bunionectomy History of tubal ligation History of laparoscopic cholecystectomy History of lumbar fusion History of section History of esophagogastroduodenoscopy (EGD) Hx of colonoscopy Family History Father Heart failure Mother Heart problem Brother Stomach tumor (benign) Brother Kidney problem Stroke Brother Myocardial infarction Brother Cerebral brain hemorrhage Heart problem Social History Housing: Apartment Alcohol intake: never Patient Tobacco Use Status: Current everyday Tobacco user Tobacco use type: Cigarette Cigarette Packs Per Day: 0.5 Cigarettes Per Day: 10 e-Cigarette/Vaping Use: Never Used Second Hand Smoke Exposure: Yes service: No Current occupational status: unemployed Cognitive needs: No Hearing needs: No Vision needs: Yes Review of Systems Const Details: Review of Systems Constitutional: Denies fever, chills, weight loss ENT: Denies vision changes, eye pain or eye redness, dental caries, dry mouth GI: Denies nausea, vomiting, diarrhea, abdominal pain, change in BM Pulm: Denies SOB, DANIELS, hemoptysis, wheezing Cards: Denies chest pain, palpitations Skin: Denies Raynaud's, rash, nail changes, photosensitivity, ASSISTANT SOFTBALL COACH: Denies headaches, weakness, paresthesias, recurrent falls MSK: as per HPI All other systems reviewed and are unremarkable except noted above Physical Exam Vital Signs: Last Vital Signs Pulse 80 01/04/24 11:25 BP 110/64 01/04/24 11:25 Pulse Ox 99 01/04/24 11:25 Oxygen Delivery Method Room Air 01/04/24 11:25 BMI result Body Mass Index 21.0 Physical Examination CONSTITUITIONAL Patient alert and cooperative. Well appearing and in no apparent painful distress MSK Hands: ?Good spinner iron strength bilaterally. Heberden's nodes noted throughout DIPs of hands. Wrists: ?Full range of motion at the wrists without pain. ?No tenderness to palpation or synovitis noted to the wrists. Elbows: Full range of motion without pain. No tenderness, weakness, swelling, increased warmth or erythema. Shoulders: Full range of motion without pain. No tenderness, weakness, swelling, increased warmth or erythema. Knees: ?Full range of motion. ?No tenderness, swelling, increased warmth or erythema.? Mild crepitations noted Ankles: Full range of motion. ?No tenderness, swelling, increased warmth or erythema.? SKIN Skin intact without rashes. Office Meds Prolia 60 mg/mL subcutaneous syringe Performing Provider: Dinorah Ford MD Performing Location: [facility] Rheumatology Administered by: Dinorah Ford MD on 01/04/24 11:54 Dose Route Admin Location Dispensed Lot Number Expiration Date [place] Electronic Court Recorder 60 mg subcut 1 mL [id number] 08/07/26 32885-392-65 [employer] Results Reviewed Results Reviewed: Laboratory Tests 05/08/23 12/29/23 08:32 11:12 Sodium 139 Potassium 3.5 Chloride 102 Carbon Dioxide 30 H BUN 16 Creatinine 0.76 25-OH Vitamin D Total 41.0 Assessment & Plan Assessment & Plan (1) Osteopenia: Comment: DEXA 02/2023. Left femur neck -2.4, Left femur -2.4, AP spine -1.5. FRAX Spine 9.8%, Hip 3.6% Alendronate 02/2023-11/2023. Did not tolerate Prolia 12/2023 Code(s): M85.80 - Other specified disorders of bone density and structure, unspecified site Category: Medical Qualifiers: Osteopenia location: multiple sites Qualified Code(s): M85.89 - Other specified disorders of bone density and structure, multiple sites Plan: #Osteopenia with qualified FRAX index for hip at 3.6% Prolia injection today. Last vitamin-D within normal range. Plan I spent 20 minutes reviewing the record and labs, seeing the patient, discussing the treatment plan and documenting in the medical record ? Orders: Orders AMB Denosumab Injection Practice Supplied Today M85.89 - Other specified disorders of bone density and structure, multiple sites Comprehensive Met. Panel 6 Months E55.9 - Vitamin D deficiency, unspecified, M85.89 - Other specified disorders of bone density and structure, multiple sites Vitamin D 25-OH (D2 and D3) 6 Months E55.9 - Vitamin D deficiency, unspecified, M85.89 - Other specified disorders of bone density and structure, multiple sites Medications: New Prolia (denosumab) 60 mg subcut ONCE 1 mL 0RF NS M85.89 - Other specified disorders of bone density and structure, multiple sites Coding Level of Care Code Est Pt Level 3 (26863) Diagnoses Osteopenia of multiple sites M85.89 Osteopenia location: multiple sites
== END 2024-01-04 11:55 | disposition home or self-care (01) ==
PROVIDERS: PCP Internal Medicine; Visit Provider Student in an Organized Health Care Education/Training Program
DX: M85.89 Other specified disorders of bone density and structure, multiple sites (principal)
CPT/HCPCS: 99213

== ENCOUNTER → 2024-01-04 11:20 | Outpatient (BNVA) | payer OTHER, SELFPAY | PROVIDERS: PCP Internal Medicine; Visit Provider Student in an Organized Health Care Education/Training Program | DX: M85.89 Other specified disorders of bone density and structure, multiple sites (principal); Z79.620 Long term (current) use of immunosuppressive biologic | CPT/HCPCS: 96372; 99212; J0897 ==

== ENCOUNTER 2024-04-10 10:29 | Outpatient (REF) | payer OTHER, SELFPAY ==
--- NOTE | ~2024-04-10 | US_ITS ---
CLINICAL HISTORY: N83.209 - Unspecified ovarian cyst, unspecified side US pelvis transabdominal and transvaginal Comparison: US/SR - US PELVIC AND TRANSVAGINAL - 07/19/23 10:55 EDT Findings: The uterus is normal in size, measuring 6.3 cm in length. The endometrial stripe is normal in thickness at 0.2 cm. The right ovary measures 4.4 x 4.0 x 4.8 cm. The left ovary measures 1.8 x 1.8 x 1.6 cm. 4.1 x 3.7 x 4.6 cm anechoic right ovarian cyst is present (previously measuring 3.6 x 3.2 x 4.1 cm). No free fluid is seen in the pelvis. IMPRESSION: 1. 4.6 cm simple right ovarian cyst, increased in size since prior exam (previously measuring 4.1 cm). In a postmenopausal patient, recommend continued follow-up in 6-12 months. This document has been electronically signed by: Wilbert Monreal on 04/11/2024 09:50:23
--- OUTSIDE RECORDS SUMMARY | 2024-04-10 12:11 | XMS_ITS | Encounter Summary ---
Demographics Address [address] [place] [address] Home Phone Mobile Phone Preferred Language es Marital Status Confucianism Affiliation Unknown Race Other Race Ethnic Group or Author Organization [employer] Address [address] [place] [address] Care Team Providers Care Dentist Name Role Phone Unavailable Primary Care Provider Unavailabl e Reason for Visit * Reason Onset Date Comments re send medication to [facility] 09/08/2023 Encounter Details Date Type Department Care Team ([facility] Contact Info) Description 09/08/2023 Telephone [facility] [address] [place] [address] Irvin Dale DDS [address] [place] [address] re send medication to [facility] Social History Tobacco Use Types Packs/Day Years Used Date Smoking Tobacco: Every Day Cigarettes Smokeless Tobacco: Never Alcohol Use Standard Drinks/Week Comments Never 0 (1 standard drink = 0.6 oz pur e alcohol) Comments Unknown Sex and Gender Information Value Date Recorded Sex Assigned at Female 12/08/2021 10:18 AM EDT Legal Sex Female 10:18 AM EDT Gender Identity Female 12/08/2021 10:18 AM EDT Sexual Orientation Straight 12/08/2021 10 :18 AM EDT documented as of this encounter Miscellaneous Notes * Telephone Encounter - Kalli Grigsby - 09/09/2023 9:01 AM EDT Message for Dr. Dale Patient called in stating that she called office yesterday requesting medication to be sent to [facility] on [address] in [place]. Prior message request documented. She called in again today because thee medication is not in [facility]. Verified chart and medication is in [facility] pharmacy but she is in so much pain she cannot drive down and she is close to [facility]. She is looking for script to be sent to [facility] [address] harmacy [facility] [address] [facility]. * Telephone Encounter - Yessy Roger - 09/08/2023 12:16 PM EDT Please send medication to [facility] on [address] documented in this encounter Plan of Treatment Upcoming Encounters Date Type Department Care Team (Late st Contact Info) Description 05/09/2024 10:00 AM EDT Office Visit [facility] [address] [place] [address] Elvira Turk [address] [place] [address] documented as of this encounter Visit Diagnoses Not on filedocumented in this encounter
--- OUTSIDE RECORDS SUMMARY | 2024-04-10 12:11 | XMS_ITS | Encounter Summary ---
Author Organization [facility] Address [address] [place] [address] Care Team Providers Care Professor Of Languages Name Role Phone Unavailable Primary Care Provider Unavailabl e Encounter Details Date Type Department Care Team (Latest Contact Info) Description 01/19/2019 Abstract [facility] CONVERSIONS Dental, Provider, DDS Social History Tobacco Use Types Packs/Day Years Used Date Smoking Tobacco: Never Assessed Comments Unknown Sex and Gender Information Value Date Recorded Sex Assigned at Female 12/08/2021 10:18 AM EDT Legal Sex Female 10:18 AM EDT Gender Identity Female 12/08/2021 10:18 AM EDT Sexual Orientation Straight 12/08/2021 10 :18 AM EDT documented as of this encounter Plan of Treatment Upcoming Encounters Date Type Department Care Team (Late st Contact Info) Description 05/09/2024 10:00 AM EDT Office Visit [facility] [address] [place] [address] Robbi Turkaris [address] [place] [address] documented as of this encounter Visit Diagnoses Not on filedocumented in this encounter
--- OUTSIDE RECORDS SUMMARY | 2024-04-10 12:11 | XMS_ITS | Encounter Summary ---
Author Organization [facility] Address [address] [place] [address] Care Team Providers Care Physician Representative Name Role Phone Unavailable Primary Care Provider Unavailabl e Encounter Details Date Type Department Care Team (Latest Contact Info) Description 09/17/2020 Abstract [facility] CONVERSIONS Dental, Provider, DDS Social History Tobacco [...] Description 05/09/2024 10:00 AM EDT Office Visit [facility] [address] [place] [address] Rosalee Elvira [address] [place] [address] documented as of this encounter Visit Diagnoses Not on filedocumented in this encounter
--- OUTSIDE RECORDS SUMMARY | 2024-04-10 12:12 | XMS_ITS | Clinical Summary ---
Author Organization [employer] Address [address] [place] [address] Care Team Providers Care Construction Driver Name Role Phone Unavailable Primary Care Provider Unavailabl e Allergies Active Allergy Reactions Criticality Noted Date Comments Avocado Rash Low 01/21/2022 Per d/w pt Banana Rash,Hives High 08/29/2021 Ibuprofen Hives High 01/20/2022 Molds & Smuts 08/29/2021 Other Reaction(s): Other (See Comments) asthma Nsaids 05/31/2012 Other Reaction(s): GI side effects / GERD Other Rash Low 08/25/2021 [place] Varenicline 05/31/2012 Other Reaction(s): Nightmares Medications Hydrocortisone, Perianal, 1 % cream APPLY 1 APPLICATION TOPICALLY 2 TIMES A DAY NEEDED FOR SKIN IRRITATION FOR 30 DAYS 4 Active sulfamethoxazol e-trimethoprim (Bactrim DS) 800-160 MG tablet TAKE 1 TAB ORALLY 2 TIMES A DAY FOR 5 DAYS 4 Active Magnesium Oxide -Mg Supplement 500 MG capsule TOME 1 C PSULA POR V A ORAL TODOS LOS D 4 Active Calcium Plus Vitamin D3 600-12.5 MG-MCG capsule TOME 1 C PSULA POR V A ORAL ONCE DAILY FOR 90 DAYS 4 Active alendronate (Fosamax) 70 MG tablet TOME ANTHONY TABLETA POR V A ORAL ONCE WEEKLY 4 Active chlorhexidine (Peridex) 0.12 % solution Swish 15 mL morning and night for 1 minute. Spit, do not swallow. Do not eat or drink for 30 minutes following use. 473 mL 4 Active ALPRAZolam (Xanax) 0.5 MG tablet TAKE 1 TABLET ORALLY 2 TIMES A DAY NEEDED FOR ANXIETY FOR 30 DAYS Active Active Problems Problem Noted Date Diagnosed Date Missing teeth, acquired 10/22/2023 Dental calculus 10/22/2023 Generalized gingival recession 10/22/2023 Abfraction 09/23/2023 History of tooth extraction 09/17/2023 Periodontal disease 09/15/2023 Arthritis 09/08/2023 Dental abscess 09/08/2023 TMJ disorder involving articular disc abnormalit y 06/02/2021 Overview (09/08/2023): Added automatically from request for surgery [id number] Chronic back pain 05/31/2012 Depressive disorder 05/31/2012 Fibromyositis 05/31/2012 Helicobacter pylori gastrointestinal tract infec tion 05/31/2012 Social History Tobacco Use Types Packs/Day Years Used Date Smoking Tobacco: Every Day Cigarettes Smokeless Tobacco: Never Tobacco Cessation:Ready to Q uit: Not Asked; Counseling Given: Not Answered Alcohol Use Standard Drinks/Week Comments Never 0 (1 standard drink = 0.6 oz pur e alcohol) Comments Unknown Sex and Gender Information Value Date Recorded Sex Assigned at Female 12/08/2021 10:18 AM EDT Legal Sex Female 10:18 AM EDT Gender Identity Female 12/08/2021 10:18 AM EDT Sexual Orientation Straight 12/08/2021 10 :18 AM EDT Last Filed Vital Signs Vital Sign Reading Time Taken Comments Blood Pressure 114/72 12/15/2023 8:58 AM EST Pulse 80 11/23/2023 8:40 AM EDT Temperature - - Respiratory Rate - - Oxygen Saturation - - Inhaled Oxygen Concentration - - Weight - - Height - - Body Mass Index - - Plan of Treatment Upcoming Encounters Date Type Department Care Team (Late st Contact Info) Description 05/09/2024 10:00 AM EDT Office Visit [facility] [address] [place] [address] Elvira Turk [address] [place] [address] Health Maintenance Due Date Last Done Comments CT Colonography 1956 Colonoscopy 1956 Colorectal Cancer Screening 1956 Depression Screening 1956 FIT DNA/Cologuard 1956 FIT 1956 FOBT 1956 Lipid Panel 1956 SDOH Screening 1956 Sigmoidoscopy 1956 Alcohol/Substance Use Screening 1968 Hepatitis C Screening 1974 Mammogram 1996 DTaP/Tdap/Td Vaccines (1 - Tdap) 09/22/2000 09/21/2000 COVID-19 Vaccine (5 - 2023- season) 2023 12/14/2022, 02/05/2021, 06/26/2020, Additional history exists Dental Oral Exam 03/26/2024 09/23/2023, 11/2020, 01/19/2019, Additional history exists Dental Prophylaxis 04/21/2024 10/22/2023, 0 09/17/2020, 01/19/2019, Additional history exists Dental X-Ray: Bitewings 09/23/2024 09/23/19 24, 09/17/2020, 01/19/2019, Additional history exists Tobacco Screening 12/14/2024 12/15/2023 Dental X-Ray: Full Mouth 09/08/2026 09/08/2023, 09/08 RSV Patients and Patients Aged 60 years or older (1 - 1-dose 75+ series) 12/31/2031 Hepatitis B Vaccines Completed 02/25/2001, 10/29/2000, 09/28/2000 Pneumococcal Vaccine: 50+ Years Completed 08/02/2022 Zoster Vaccines Completed 12/11/2022, 08/03/2022 Influenza Vaccine Completed 11/17/2023, , 11/27/2021, Additional history exists HIB Vaccines Aged Out No longer eligi ble based on patient's age to complete this topic HPV Vaccines Aged Out No longer eligi ble based on patient's age to complete this topic Hepatitis A Vaccines Aged Out No long er eligible based on patient's age to complete this topic IPV Vaccines Aged Out No longer eligi ble based on patient's age to complete this topic Meningococcal Vaccine Aged Out No mauricio ledy eligible based on patient's age to complete this topic RSV under 20 months Aged Out No longe r eligible based on patient's age to complete this topic Rotavirus Vaccines Aged Out No longer eligible based on patient's age to complete this topic Procedures Procedure Name Priority Date/Time Associated Diagnosis Comments PROPHYLAXIS - ADULT Routine 10/22/2023 3 :00 PM EDT Periodontal disease Dental calculus BITEWINGS - 4 RADIOGRAPHIC IMAGES Routine 09/23/2023 10:30 AM EDT PERIODIC ORAL EVALUATION - ESTABLISHED PATIENT Routine 09/23/2023 10:30 AM EDT PANORAMIC RADIOGRAPHIC IMAGE Routine 09/08/2023 9:00 AM EDT from Last 3 Months or Most Recently Relevant to Health Maintenance Insurance [facility]
== END 2024-04-10 10:30 | disposition home or self-care (01) ==
LOC: HO.US 10:29
PROVIDERS: PCP Internal Medicine; Visit Provider Obstetrics & Gynecology
DX: N83.201 Unspecified ovarian cyst, right side (principal)
CPT/HCPCS: 76830; 76856

== ENCOUNTER → 2024-04-10 10:31 | Outpatient (BNV) | payer OTHER, SELFPAY | PROVIDERS: PCP Internal Medicine; Visit Provider Radiology Vascular & Interventional Radiology | DX: N83.201 Unspecified ovarian cyst, right side (principal) | CPT/HCPCS: 76830; 76856 ==

== ENCOUNTER 2024-04-12 09:33 | Outpatient (AMB) | payer OTHER, SELFPAY ==
[2024-04-12 09:41] VITALS: BP 112/60
--- NOTE | 2024-04-12 09:41 | A.OFFVIS_ITS ---
Vital Signs 04/12/24 09:41 BP 112/60 Blood Pressure Location Lt brachial Position Sitting Intake Visit Reasons: ultrasound and Dexa results Intake Note: pt c/o UTI symptoms, CCUA obtained Bd Special Education Teacher Required: No Allergies mold Allergy (Intermediate, Verified 04/12/24 09:44) Hives alendronate sodium Adverse Reaction (Verified 04/12/24 09:44) Chest Pain dust Allergy (Intermediate, Uncoded 04/12/24 09:44) sneeze, watery eyes food sensitivities i.e. banana Allergy (Intermediate, Uncoded 04/12/24 09:44) rash pollens Allergy (Intermediate, Uncoded 04/12/24 09:44) sneeze, watery eyes Is last menstrual period known: No Post menopausal: Yes Patient : No HPI Comments Details: Presenting for ultrasound follow-up regarding simple ovarian cyst previously seen. Complaining ovarian a frequency no dysuria. Ultrasound done recently showed the following: The uterus is normal in size, measuring 6.3 cm in length. The endometrial stripe is normal in thickness at 0.2 cm. The right ovary measures 4.4 x 4.0 x 4.8 cm. The left ovary measures 1.8 x 1.8 x 1.6 cm. 4.1 x 3.7 x 4.6 cm anechoic right ovarian cyst is present (previously measuring 3.6 x 3.2 x 4.1 cm). No free fluid is seen in the pelvis. 03/03 left simple ovarian cyst measured 3.8 cm 08/01 left simple ovarian cyst measured 3.9 cm 05/01 CA 125, CA 19-9, CEA PFSH Medical History TMJ (temporomandibular joint disorder) [place]jaw Mild recurrent major depression SONALI (generalized anxiety disorder) Polyarthralgia Right hip pain Right shoulder pain Depression with anxiety Mild asthma Chest pain Dyslipidemia Fibromyalgia Surgical History History of tooth extraction TMJ derangement History of mammogram History of bunionectomy History of tubal ligation History of laparoscopic cholecystectomy History of lumbar fusion History of section History of esophagogastroduodenoscopy (EGD) Hx of colonoscopy Family History Father Heart failure Mother Heart problem Brother Stomach tumor (benign) Brother Kidney problem Stroke Brother Myocardial infarction Brother Cerebral brain hemorrhage Heart problem Social History Housing: Apartment Alcohol intake: never Patient Tobacco Use Status: Current everyday Tobacco user Tobacco use type: Cigarette Cigarette Packs Per Day: 0.5 Cigarettes Per Day: 10 e-Cigarette/Vaping Use: Never Used Second Hand Smoke Exposure: Yes Patient : No service: No Current occupational status: unemployed Cognitive needs: No Hearing needs: No Vision needs: Yes Physical Exam Vital Signs: Last Vital Signs BP 112/60 04/12/24 09:41 Results AMB Urinalysis Dipstick UR Leukocytes Small Last Edit by Dyan Bunch LPN on 04/12/24 10:01 UR Nitrite Negative Last Edit by Dyan Bunch LPN on 04/12/24 10:01 UR Urobilinogen 1 Last Edit by Dyan Bunch LPN on 04/12/24 10:01 UR Protein Trace Last Edit by Dyan Bunch LPN on 04/12/24 10:01 UR Ph 6.0 Last Edit by Dyan Bunch LPN on 04/12/24 10:01 UR Blood Negative Last Edit by Dyan Bunch LPN on 04/12/24 10:01 UR Specific Ailey 1.025 Last Edit by Dyan Bunch LPN on 04/12/24 10:01 UR Ketone Last Edit by Dyan Bunch LPN on 04/12/24 10:01 UR Bilirubin Small Last Edit by Dyan Bunch LPN on 04/12/24 10:01 UR Glucose Negative Last Edit by Dyan Bunch LPN on 04/12/24 10:01 Results Reviewed Results Reviewed: Laboratory Last Values Urine pH (Clinic) 6.0 04/12/24 09:58 Specific Ailey (Clinic) 1.025 04/12/24 09:58 Ur Protein (Clinic) Trace 04/12/24 09:58 Urine Blood (Clinic) Negative 04/12/24 09:58 Urine Nitrite Negative 04/12/24 09:58 Urine Bilirubin (Clinic) Small 04/12/24 09:58 Urobilinogen (Clinic) 1 04/12/24 09:58 Leukocyte Esterase (Clinic) Small 04/12/24 09:58 Urine Glucose (Clinic) Negative 04/12/24 09:58 Assessment & Plan Assessment & Plan (1) Ovarian cyst: Code(s): N83.209 - Unspecified ovarian cyst, unspecified side Category: Medical Plan: Discussed with the patient the finding of the most recent ultrasound done in 05/02 showing simple ovarian cyst measuring 4.6 cm compared to ultrasound findings in 08/01 cyst measured 3.9 cm and in 02/27 for 3.8 cm. Discussed with the patient the main limitation of transvaginal ultrasonography alone as a diagnostic tool to distinguish benign from malignant masses relates to its lack of specificity and low positive predictive value for cancer. The differential diagnosis discussed with the patient includes the following but not limited to: benign and malignant gynecological and non-gynecological causes. Serum tumor marker CA 125 wnl Discussed with the patient that CA 125 is a protein associated with epithelial ovarian malignancies, but also frequently expressed at lower levels by nonmalignant tissue. Normal CA 125 levels can be found in ovarian cancer patients. Elevation of CA 125 levels may occur in nonmalignant gynecologic conditions, and in non-gynecologic cancers, It is most useful in postmenopausal women and in identifying non mucinous epithelial cancer. The CA 125 level is elevated in 80% of patients with epithelial ovarian cancer but in only 50% of patients with stage I disease. The overall sensitivity of CA 125 testing in distinguishing benign from malignant adnexal masses reportedly ranges from 61% to 90%; specificity ranges from 71% to 93%, positive predictive value ranges from 35% to 91%, and negative predictive value ranges from 67% to 90%. Since the ovarian cyst has been mild increase in size, will repeat tumor markers and Will refer to Gyne Onc for a consult (2) Urinary frequency: Code(s): R35.0 - Frequency of micturition Category: Medical Plan: Urine dip showed leukocytes no microscopic hematuria. Urine culture sent will check the results and treat accordingly. Orders: Orders Carcinoembryonic Antigen Today N83.209 - Unspecified ovarian cyst, unspecified side AMB Urinalysis Dipstick Today Z13.9 - Encounter for screening, unspecified CA-125 Today N83.209 - Unspecified ovarian cyst, unspecified side Carbohydrate Antigen 19-9 Today N83.209 - Unspecified ovarian cyst, unspecified side Referrals Gynecologic Oncology Referral N83.209 - Unspecified ovarian cyst, unspecified side Coding Level of Care Code Est Pt Level 3 (04293) Diagnoses Ovarian cyst N83.209 Urinary frequency R35.0
--- OUTSIDE RECORDS SUMMARY | 2024-04-12 10:51 | XMS_ITS | Encounter Summary ---
Author Organization [facility] Address [address] [place] [address] Care Team Providers Care Search Coordinator Name Role Phone Unavailable Primary Care Provider Unavailabl e Encounter Details Date Type Department Care Team (Latest Contact Info) Description 01/19/2019 Abstract [facility] CONVERSIONS Dental, Provider, DDS Social History [...] Description 05/09/2024 10:00 AM EDT Office Visit [facility] ADULT DENTAL [address] [place] [address] Robbi Turkaris [address] [place] [address] documented as of this encounter Visit Diagnoses Not on filedocumented in this encounter
--- OUTSIDE RECORDS SUMMARY | 2024-04-12 10:51 | XMS_ITS | Encounter Summary ---
Author Organization [facility] Address [address] [place] [address] Care Team Providers Care Coordinate Measuring Machine Programmer Name Role Phone Unavailable Primary Care Provider Unavailabl e Encounter Details Date Type Department Care Team (Latest Contact Info) Description 09/17/2020 Abstract [facility] CONVERSIONS Dental, Provider, DDS Social History Tobacco [...] Description 05/09/2024 10:00 AM EDT Office Visit [facility] ADULT DENTAL [address] [place] [address] Rosalee Elvira [address] [place] [address] documented as of this encounter Visit Diagnoses Not on filedocumented in this encounter
--- OUTSIDE RECORDS SUMMARY | 2024-04-12 10:51 | XMS_ITS | Encounter Summary ---
Demographics Address [address] [place] [address] Home Phone Mobile Phone Preferred Language es Marital Status Episcopalian Affiliation Unknown Race Other Race Ethnic Group or Author Organization [employer] Address [address] [place] [address] Care Team Providers Care Pit Furnace Operator Name Role Phone Unavailable Primary Care Provider Unavailabl e Reason for Visit * Reason Onset Date Comments re send medication to [facility] 09/08/2023 Encounter Details Date Type Department Care Team ([facility] Contact Info) Description 09/08/2023 Telephone [facility] ADULT DENTAL [address] [place] [address] Irvin Dale DDS [address] [place] [address] re send medication to [facility] Social History Tobacco Use Types Packs/Day Years [...] yesterday requesting medication to be sent to [facility] on [address] in [place]. Prior message request documented. She called in again today because thee medication is not in [facility]. Verified chart and medication is in [facility] pharmacy but she is in so much pain she cannot drive down and she is close to [facility]. She is looking for script to be [facility] [address] [address] [facility]. * Telephone Encounter - Yessy Roger - 09/08/2023 12:16 PM EDT Please send medication to [facility] on [facility] [facility] documented in this encounter Plan of Treatment Upcoming Encounters Date Type Department Care Team (Late st Contact Info) Description 05/09/2024 10:00 AM EDT Office Visit [facility] ADULT DENTAL [address] [place] [address] Elvira Turk [address] [place] [address] documented as of this encounter Visit Diagnoses Not on filedocumented in this encounter
--- OUTSIDE RECORDS SUMMARY | 2024-04-12 10:51 | XMS_ITS | Clinical Summary ---
Author Organization [employer] Address [address] [place] [address] Care Team Providers Care Assistant Laboratory Director Name Role Phone Unavailable Primary Care Provider [...] (09/08/2023): Added automatically from request for surgery [id number] Chronic back pain 05/31/2012 Depressive disorder 05/31/2012 [...] Description 05/09/2024 10:00 AM EDT Office Visit [facility] ADULT DENTAL [address] [place] [address] Elvira Turk [address] [place] [address] Health Maintenance Due Date Last Done Comments [...] Recently Relevant to Health Maintenance Insurance DENTAL [facility]
== END 2024-04-12 10:32 | disposition home or self-care (01) ==
LOC: HO.HWS 09:33
PROVIDERS: PCP Internal Medicine; Visit Provider Obstetrics & Gynecology
DX: N83.209 Unspecified ovarian cyst, unspecified side (principal); R35.0 Frequency of micturition; Z13.9 Encounter for screening, unspecified
CPT/HCPCS: 99213

== ENCOUNTER 2024-04-12 09:33 | Outpatient (REF) | payer OTHER, SELFPAY ==
--- OUTSIDE RECORDS SUMMARY | 2024-04-12 12:10 | XMS_ITS | Clinical Summary ---
Author Organization [employer] Address [address] [place] [address] Care Team Providers Care Wool Sacker Name Role Phone Unavailable Primary Care Provider [...] (09/08/2023): Added automatically from request for surgery [id number] Chronic back pain 05/31/2012 Depressive disorder 05/31/2012 [...] Description 05/09/2024 10:00 AM EDT Office Visit [facility] ADULT DENTAL [address] [place] [address] Elvira Turk [address] [place] [address] Health Maintenance Due Date Last Done Comments [...] Recently Relevant to Health Maintenance Insurance DENTAL [facility]
--- OUTSIDE RECORDS SUMMARY | 2024-04-12 12:10 | XMS_ITS | Encounter Summary ---
Author Organization [facility] Address [address] [place] [address] Care Team Providers Care Wet Roaster Name Role Phone Unavailable Primary Care Provider Unavailabl e Encounter Details Date Type Department Care Team (Latest Contact Info) Description 09/17/2020 Abstract [facility] CONVERSIONS Dental, Provider, DDS Social History [...] Description 05/09/2024 10:00 AM EDT Office Visit [facility] ADULT DENTAL [address] [place] [address] Rosalee Elvira [address] [place] [address] documented as of this encounter Visit Diagnoses Not on filedocumented in this encounter
--- OUTSIDE RECORDS SUMMARY | 2024-04-12 12:10 | XMS_ITS | Encounter Summary ---
Author Organization [facility] Address [address] [place] [address] Care Team Providers Care Lead Nuclear Medicine Technologist Name Role Phone Unavailable Primary Care Provider Unavailabl e Encounter Details Date Type Department Care Team (Latest Contact Info) Description 01/19/2019 Abstract [facility] CONVERSIONS Dental, Provider, DDS Social History [...] Description 05/09/2024 10:00 AM EDT Office Visit [facility] ADULT DENTAL [address] [place] [address] Robbi Turkaris [address] [place] [address] documented as of this encounter Visit Diagnoses Not on filedocumented in this encounter
--- OUTSIDE RECORDS SUMMARY | 2024-04-12 12:10 | XMS_ITS | Encounter Summary ---
Demographics Address [address] [place] [address] Home Phone Mobile Phone Preferred Language es Marital Status Gnosticist Affiliation Unknown Race Other Race Ethnic Group or Author Organization [employer] Address [address] [place] [address] Care Team Providers Care Literary Writer Name Role Phone Unavailable Primary Care Provider Unavailabl e Reason for Visit * Reason Onset Date Comments re send medication to [facility] 09/08/2023 Encounter Details Date Type Department Care Team ([facility] Contact Info) Description 09/08/2023 Telephone [facility] ADULT DENTAL [address] [place] [address] Irvin Dale DDS [address] [place] [address] re send medication to [facility] Social History Tobacco Use Types [...] be sent to [facility] on [address] in [place]. Prior message request documented. She called in again today because thee medication is not in [facility]. Verified chart and medication is in [facility] pharmacy but she is in so much pain she cannot drive down and she is close to [facility]. She is looking for script to be sent [facility] [address] [address] in system. * Telephone Encounter - Yessy Roger - 09/08/2023 12:16 PM EDT Please send medication to [facility] on [address] [facility] documented in this encounter Plan of Treatment Upcoming Encounters Date Type Department Care Team (Late st Contact Info) Description 05/09/2024 10:00 AM EDT Office Visit [facility] ADULT DENTAL [address] [place] [address] Elvira Turk [address] [place] [address] documented as of this encounter Visit Diagnoses Not on filedocumented in this encounter
[2024-04-13 10:24] LABS: Carbohydrate Antigen 19-9 <3 U/mL (<34)
[2024-04-13 11:28] LABS: CA-125 4 U/mL (<35)
== END 2024-04-12 09:34 | disposition home or self-care (01) ==
LOC: HO.LAB 09:33
PROVIDERS: PCP Internal Medicine; Visit Provider Obstetrics & Gynecology
DX: N83.201 Unspecified ovarian cyst, right side (principal); N83.202 Unspecified ovarian cyst, left side; R35.0 Frequency of micturition
CPT/HCPCS: 36415; 81002; 82378; 86301; 86304; 87086; 87088; 87186; 99212

== ENCOUNTER 2024-06-28 08:29 | Outpatient (REF) | payer OTHER, SELFPAY ==
--- OUTSIDE RECORDS SUMMARY | 2024-06-28 09:50 | XMS_ITS | Encounter Summary ---
Author Organization [employer] Address [address] [place] [address] Care Team Providers Care Business Transformation Consultant Name Role Phone Unavailable Primary Care Provider Unavailabl e Encounter Details Date Type Department Care Team (Latest Contact Info) Description 01/19/2019 Abstract [facility] CONVERSIONS Dental, Provider, DDS Social History Tobacco [...] Care Team (Late st Contact Info) Description 11/16/2024 10:00 AM EDT Office Visit [facility] ADULT DENTAL [address] [place] [address] Robbi Turkaris [address] [place] [address] documented as of this encounter Visit Diagnoses Not on filedocumented in this encounter
--- OUTSIDE RECORDS SUMMARY | 2024-06-28 09:51 | XMS_ITS | Encounter Summary ---
Author Organization [employer] Address [address] [place] [address] Care Team Providers Care Insurance Loss Adjuster Name Role Phone Unavailable Primary Care Provider Unavailabl e Encounter Details Date Type Department Care Team (Latest Contact Info) Description 09/17/2020 Abstract [facility] CONVERSIONS Dental, Provider, DDS Social History Tobacco [...] Description 11/16/2024 10:00 AM EDT Office Visit [facility] ADULT DENTAL [address] [place] [address] Robbi Turkaris [address] [place] [address] documented as of this encounter Visit Diagnoses Not on filedocumented in this encounter
--- OUTSIDE RECORDS SUMMARY | 2024-06-28 09:51 | XMS_ITS | Clinical Summary ---
Author Organization [employer] Address [address] [place] [address] Care Team Providers Care Orthotics Prosthetics Technician Name Role Phone Unavailable Primary Care Provider [...] (09/08/2023): Added automatically from request for surgery [id number] Chronic back pain 05/31/2012 Depressive disorder 05/31/2012 Fibromyositis 05/31/2012 Helicobacter pylori gastrointestinal tract infec tion 05/31/2012 Encounters Date Type Department Care Team Description 05/09/2024 10:00 AM EDT Office Visit [facility] ADULT DENTAL [address] [place] [address] Elvira Turk Dental calculus (Primary Dx); Periodontal disease; Missing teeth, acquired from Last 3 Months Social History Tobacco Use Types Packs/Day Years [...] Sign Reading Time Taken Comments Blood Pressure 126/70 05/09/2024 9:46 AM EDT Pulse 80 11/23/2023 8:40 AM EDT Temperature - - Respiratory Rate - - Oxygen Saturation - - Inhaled Oxygen Concentration - - Weight - - Height - - Body Mass Index - - Plan of Treatment Upcoming Encounters Date Type Department Care Team (Late st Contact Info) Description 11/16/2024 10:00 AM EDT Office Visit [facility] ADULT DENTAL [address] [place] [address] Elvira Turk [address] [place] [address] Health Maintenance Due Date Last Done Comments CT Colonography 1956 Colonoscopy 1956 Colorectal Cancer Screening 1956 Depression Screening 1956 FIT DNA/Cologuard 1956 FIT 1956 FOBT 1956 Lipid Panel 1956 SDOH Screening 1956 Sigmoidoscopy 1956 Alcohol/Substance Use Screening 1968 Hepatitis C Screening 1974 Mammogram 1996 DTaP/Tdap/Td Vaccines (1 - Tdap) 09/22/2000 09/21/2000 COVID-19 Vaccine ( season) 2023 12/14/2022, 02/05/2021, 06/26/2020, Additional history exists Dental Oral Exam 03/26/2024 09/23/2023, 11/2020, 01/19/2019, Additional history exists Dental X-Ray: Bitewings 09/23/2024 09/23/19 24, 09/17/2020, 01/19/2019, Additional history exists Dental Prophylaxis 11/09/2024 05/09/2024, 0 10/22/2023, 09/17/2020, Additional history exists Tobacco Screening 12/14/2024 12/15/2023 [...] patient's age to complete this topic Meningococcal B Vaccine Aged Out No l onger eligible based on patient's age to complete [...] Procedure Name Priority Date/Time Associated Diagnosis Comments CASE PRESENTATION, DETAILED AND EXTENSIVE TREATMENT PLANNING Routine 05/09/2024 10:00 AM EDT Dental calculus Periodontal disease Missing teeth, acquired ORAL HYGIENE INSTRUCTIONS Routine 05/09/2024 10:00 AM EDT Dental calculus Periodontal disease Missing teeth, acquired PROPHYLAXIS - ADULT Routine 05/09/2024 1 0:00 AM EDT Dental calculus Periodontal disease BITEWINGS - 4 RADIOGRAPHIC IMAGES Routine 09/23/2023 10:30 AM EDT PERIODIC ORAL EVALUATION - ESTABLISHED PATIENT Routine 09/23/2023 10:30 AM EDT PANORAMIC RADIOGRAPHIC IMAGE Routine 09/08/2023 9:00 AM EDT from Last 3 Months or Most Recently Relevant to Health Maintenance Insurance [facility]
--- OUTSIDE RECORDS SUMMARY | 2024-06-28 09:51 | XMS_ITS | Encounter Summary ---
Demographics Address [address] [place] [address] Home Phone Mobile Phone Preferred Language es Marital Status Spiritism Affiliation Unknown Race Other Race Ethnic Group Unknown Author Organization [employer] Address [address] [place] [address] Care Team Providers Care National Dedicated Truck Driver Name Role Phone Unavailable Primary Care Provider Unavailabl e Reason for Visit * Reason Onset Date Comments re send medication to [facility] 09/08/2023 Encounter Details Date Type Department Care Team ([facility] Contact Info) Description 09/08/2023 Telephone [facility] ADULT DENTAL [address] [place] [address] Irvin Dale DDS [address] [place] [address] re send medication to [facility] Social History Tobacco Use Types Packs/Day Years [...] yesterday requesting medication to be sent to [facility] on [address] in [place]. Prior message request documented. She called in again today because thee medication is not in [facility]. Verified chart and medication is in [facility] pharmacy but she is in so much pain she cannot drive down and she is close to [facility]. She is looking for script to be sent [facility] [address] [address] [facility]. * Telephone Encounter - Yessy Roger - 09/08/2023 12:16 PM EDT Please send medication to [facility] on [address] [facility] documented in this encounter Plan of Treatment Upcoming Encounters Date Type Department Care Team (Late st Contact Info) Description 11/16/2024 10:00 AM EDT Office Visit [facility] ADULT DENTAL [address] [place] [address] Elvira Turk [address] [place] [address] documented as of this encounter Visit Diagnoses Not on filedocumented in this encounter
[2024-06-28 11:01] LABS: Appearance Urine Cloudy; Color Urine Yellow; Glucose Urine UA Negative (Negative); Leukocyte Esterase Urine Moderate (2+) (Negative); Nitrite Urine Positive (Negative); PH 5.5 (5.0-9.0); Specific Gravity - Urine 1.015 (1.005-1.025); UMIC TRIGGER UACC YES; Urine Blood Trace (Negative); Urine Ketones Negative (Negative); Urine Protein Negative (Neg-Trace)
[2024-06-28 11:08] LABS: Bacteria Urine 4+ (None Seen); Hyaline Casts Urine 0-2 /LPF (0-2); RBC Urine 0-2 /HPF (0-2); UACC Culture Trigger YES; WBC Urine >50 /HPF (0-5)
[2024-06-28 11:29] LABS: Alanine Aminotransferase 14 U/L (0-31); Alkaline Phosphatase 47 U/L (39-117); Anion Gap 12 (12-20); Aspartate Amino Transferase 21 U/L (5-31); Bilirubin Total 0.3 mg/dL (0.0-1.0); Blood Urea Nitrogen 9 mg/dL (9-16); Calcium 8.9 mg/dL (8.4-10.2); Carbon Dioxide 29 mmol/L (22-29); Chloride 106 mmol/L (96-108); Cholesterol 196 mg/dL (<200); Estimated Glomerular Filt Rate > 60; Glucose Fasting 73 mg/dL (60-99); Glucose Random 72 mg/dL (60-115); HDL Cholesterol 65 mg/dL (>40); LDL Cholesterol Calculated 98 mg/dL (<100); Potassium 3.6 mmol/L (3.3-5.1); Sodium 143 mmol/L (135-145); Total Protein 6.6 g/dL (6.5-8.0); Triglycerides 169 mg/dL (<150)
[2024-06-28 12:02] LABS: Folate 8.3 ng/mL (> or = 4.0); Vitamin B12 279 pg/mL (200-900)
[2024-07-02 17:44] LABS: Vitamin D 25-OH, D2 <4 ng/mL; Vitamin D 25-OH, D3 22 ng/mL; Vitamin D 25-OH, Total 22 ng/mL (30-100)
== END 2024-06-28 08:30 | disposition home or self-care (01) ==
LOC: HO.LAB 08:29
PROVIDERS: PCP Internal Medicine; Visit Provider Student in an Organized Health Care Education/Training Program
DX: M85.89 Other specified disorders of bone density and structure, multiple sites (principal); E55.9 Vitamin D deficiency, unspecified; E78.5 Hyperlipidemia, unspecified; M54.16 Radiculopathy, lumbar region; E53.8 Deficiency of other specified B group vitamins; N39.0 Urinary tract infection, site not specified
CPT/HCPCS: 36415; 80053; 80061; 81001; 81003; 82306; 82607; 82746; 87086; 87088; 87186

== ENCOUNTER 2024-07-04 10:41 | Outpatient (AMB) | payer OTHER, SELFPAY ==
--- NOTE | 2024-07-04 10:54 | A.OFFVIS_ITS ---
Vital Signs 07/04/24 11:01 Height 5 ft 1 in Weight 111 lb 8.862 oz BMI 21.1 BP 112/62 Blood Pressure Location Lt brachial Position Sitting Pulse 74 Pulse Source Pulse Oximeter Pulse Oximetry (%) 99 Oxygen Delivery Method Room Air Intake Visit Reasons: Osteoporosis/prolia inj Intake Note: Patient presents for Osteoporosis follow up and Prolia injection. Allergies mold Allergy (Intermediate, Verified 07/04/24 11:00) Hives alendronate sodium Adverse Reaction (Verified 07/04/24 11:00) Chest Pain dust Allergy (Intermediate, Uncoded 04/12/24 09:44) sneeze, watery eyes food sensitivities i.e. banana Allergy (Intermediate, Uncoded 04/12/24 09:44) rash pollens Allergy (Intermediate, Uncoded 04/12/24 09:44) sneeze, watery eyes Medication List - Last Reconciled 07/04/24 by Dinorah Ford MD albuterol sulfate 90 mcg/actuation 2 puffs inhalation Q6-8H 30 days alprazolam 0.5 mg PO BID PRN 30 days bisacodyl (Dulcolax (bisacodyl)) 10 mg (2 x 5 mg) PO BEDTIME calcium carbonate-vitamin D3 600 mg-12.5 mcg (500 unit) (Calcium with Vit D3) 1 cap PO .once a day 90 days cyclobenzaprine 5 mg PO BID PRN 30 days denosumab (Prolia) 60 mg subcut [id number] duloxetine 60 mg PO BID gabapentin 600 mg PO TID hydrocortisone 1% (Anti-Itch (hydrocortisone)) 1 appl topical BID PRN 30 days linaclotide (Linzess) 290 mcg PO QAM 30 days magnesium oxide 500 mg PO DAILY 30 days nicotine 1 patch transdermal DAILY 28 days nitrofurantoin monohyd/m-cryst 100 mg (Macrobid) 100 mg PO BID 5 days oxycodone 10 mg PO Q6H PRN 30 days pantoprazole 40 mg PO BID quetiapine 100 mg PO BEDTIME 90 days quetiapine 400 mg PO BEDTIME 90 days HPI Comments Details: Patient is a 67 y.o. female s/p temperomadibular surgery 2/2, polyarticular OA involving hands and knees, and depression follow-up of osteoporosis Interval History: Last seen 11/26/24. At that time she was establishing care for low bone density on a background of intolerance to alendronate. Here today for Prolia 2nd injection No falls and no fractures since last visit Complaining of bilateral knee and shoulder pain Had BSO 05/15/2024 2/2 enlarging ovarian cyst Rheumatologic History: Risk Factor Assessment: Age: 67 Race: Female Menarche: 15 years. Menopause: 53 years Family history: Osteoporosis in mom and sisters. But no falls with fractures Calcium/vitamin-D intake: Takes supplements prescribed by primary. Does not drink milk, only with coffee in the AM. Yogurts. Drinks Ensure Estrogen deficiency: None Lifestyle: gardening Cigarette smokin cigarettes/day since age of 17. 25 pack/years Excessive alcohol: Does not drink alcohol Excessive caffeine: Drinks 3 cups/day High-risk medication assessment: Glucocorticoids. In the past would get short courses but nothing in the past several years Current Rheumatology Medication(s): Prolia 60mg every 6 months PFS Medical History TMJ (temporomandibular joint disorder) Lockjaw Mild recurrent major depression SONALI (generalized anxiety disorder) Polyarthralgia Right hip pain Right shoulder pain Depression with anxiety Mild asthma Chest pain Dyslipidemia Fibromyalgia Surgical History History of tooth extraction TMJ derangement History of mammogram History of bunionectomy History of tubal ligation History of laparoscopic cholecystectomy History of lumbar fusion History of section History of esophagogastroduodenoscopy (EGD) Hx of colonoscopy Family History Father Heart failure Mother Heart problem Brother Stomach tumor (benign) Brother Kidney problem Stroke Brother Myocardial infarction Brother Cerebral brain hemorrhage Heart problem Social History Housing: Apartment Alcohol intake: never Patient Tobacco Use Status: Current everyday Tobacco user Tobacco use type: Cigarette Cigarette Packs Per Day: 0.5 Cigarettes Per Day: 10 e-Cigarette/Vaping Use: Never Used Second Hand Smoke Exposure: Yes service: No Current occupational status: unemployed Cognitive needs: No Hearing needs: No Vision needs: Yes Review of Systems Const Details: Review of Systems Constitutional: Denies fever, chills, weight loss ENT: Denies vision changes, eye pain or eye redness, dental caries, dry mouth GI: Denies nausea, vomiting, diarrhea, abdominal pain, change in BM Pulm: Denies SOB, DANIELS, hemoptysis, wheezing Cards: Denies chest pain, palpitations Skin: Denies Raynaud's, rash, nail changes, photosensitivity, MEDICAL RECORDS SUPERVISOR: Denies headaches, weakness, paresthesias, recurrent falls MSK: as per HPI All other systems reviewed and are unremarkable except noted above Physical Exam Vital Signs: Last Vital Signs Pulse 74 07/04/24 11:01 BP 112/62 07/04/24 11:01 Pulse Ox 99 07/04/24 11:01 Oxygen Delivery Method Room Air 07/04/24 11:01 BMI result Body Mass Index 21.1 Vital signs reviewed Physical Examination CONSTITUITIONAL Patient alert and cooperative. Well appearing and in no apparent painful distress HEENT Conjunctiva and sclera clear. ?Pupils equal round and reactive to light. ?No lymphadenopathy. ? CHEST/RESPIRATORY SYSTEM Normal respiratory effort and able to speak in complete sentences. ?Clear to auscultation bilaterally. ?No crackles, rales, rhonchi, wheezes heard. CARDIAC SYSTEM Regular rate and rhythm. ?S1 and S2 heard no murmurs. ?Radial pulses intact bilaterally MSK Hands: ?Able to make a fist. No synovitis noted to the MCPs, PIPs or DIPs. ?No tenderness to palpation of these joints. Herbeden's nodes noted Wrists: ?Full range of motion at the wrists without pain. ?No tenderness to palpation or synovitis noted to the wrists. Elbows: Full range of motion without pain. No tenderness, weakness, swelling, increased warmth or erythema. Shoulders: Full range of active range of motion without pain. No tenderness, weakness, swelling, increased warmth or erythema. Hips: Full range of motion without pain. Hip bursa: No tenderness to palpation Knees: ?Full range of motion. ?No tenderness, swelling, increased warmth or erythema.?Crepitations felt Ankles: Full range of motion. ?No tenderness, swelling, increased warmth or erythema.? Feet: ?Negative squeeze test. ?No tenderness to palpation or swelling of the MTPs. Tender points:?No tenderness to palpation of the bilateral trapezius, supraspinatus, greater trochanters, anterior costochondral junctions, bilateral gluteal areas, bilateral suboccipital muscle insertions SKIN Skin intact without rashes. Office Meds Prolia 60 mg/mL subcutaneous syringe Performing Provider: Dinorah Ford MD Performing Location: [facility] [place] Endocrinology Administered by: Chichi Obregon RN on 07/04/24 11:18 Dose Route Admin Location Dispensed Lot Number Expiration Date NDC Life Sciences Manager 60 mg subcut left upper arm 1 mL Comments: Patient tolerated well. Denies any adverse reactions to previous injections. Results Reviewed Results Reviewed: Laboratory Tests 06/28/24 09:02 Sodium 143 Potassium 3.6 Chloride 106 Carbon Dioxide 29 BUN 9 Creatinine 0.68 AST 21 ALT 14 Alkaline Phosphatase 47 Total Protein 6.6 25-OH Vitamin D Total 25.0 L Assessment & Plan Assessment & Plan (1) Osteopenia: Comment: DEXA 02/2023. Left femur neck -2.4, Left femur -2.4, AP spine -1.5. FRAX Spine 9.8%, Hip 3.6% Alendronate 02/2023-11/2023. Did not tolerate Prolia 12/2023 Code(s): M85.80 - Other specified disorders of bone density and structure, unspecified site Category: Medical Qualifiers: Osteopenia location: multiple sites Qualified Code(s): M85.89 - Other specified disorders of bone density and structure, multiple sites Plan: #Osteopenia with high FRAX index Patient is a 68-year-old female with osteopenia with high FRAX index here today for follow up. Currently on Prolia injections due to intolerance of the alendronate and doing well overall. No falls or fractures. Vitamin-D not at goal. Currently on a joint supplement with calcium and vitamin-D, we will need to add separate additional vitamin-D supplementation Plan - Start Vit D 2000 U daily (Patient will get this OTC) - s/p Prolia injection today - RTC 6 months - Labs before visit: CMP and Vit D (2) Polyarticular osteoarthritis: Code(s): M15.9 - Polyosteoarthritis, unspecified Plan: #Polyarticular OA Patient with polyarticular OA : knees and shoulders Recommend topical diclofenac 1% 4 times a day Plan - XR bilateral knees and shoulders - Topical diclofenac 1% qid (patient will get OTC) (3) Encounter for monitoring denosumab therapy: Code(s): Z51.81 - Encounter for therapeutic drug level monitoring; Z79.620 - extermination supervisor (current) use of immunosuppressive biologic Plan: #Long-term use of Denosumab Discussed with patient the risks and benefits of denosumab (Prolia) for the management of their osteoporosis Benefits include improved bone density, decreased fracture risk Risks include rapid bone loss if denosumab stopped, osteonecrosis of the jaw especially in patients with poor oral hygiene/diabetes/use of glucocorticoids/ag e greater than 65 years, atypical femoral fractures, injection site reactions. Mild increased risk of infections due to RANKL on T helper cells, increased risk of hypocalcemia especially in CKD patients Keep vitamin-D at least 35 ng/mL Advised to delay non emergent dental procedures to toward the end of the 6 month cycle and if they plan to stop denosumab would need to continue antiresorptive to maintain the effects of denosumabe Plan I spent 20 minutes reviewing the record and labs, taking a history, examining the patient, discussing the treatment plan, ordering diagnostic work up and documenting in the medical record Orders: Orders AMB Denosumab Injection Practice Supplied Today M85.89 - Other specified disorders of bone density and structure, multiple sites Comprehensive Met. Panel 6 Months M85.89 - Other specified disorders of bone density and structure, multiple sites XR shoulder LT min 2V Today M19.019 - Primary osteoarthritis, unspecified shoulder XR shoulder RT min 2V Today M19.019 - Primary osteoarthritis, unspecified shoulder XR knee LT 3V Today M25.561 - Pain in right knee, M25.562 - Pain in left knee XR knee RT 3V Today M25.561 - Pain in right knee, M25.562 - Pain in left knee Vitamin D 25-OH Total 6 Months E55.9 - Vitamin D deficiency, unspecified, M85.89 - Other specified disorders of bone density and structure, multiple sites Coding Level of Care Code Est Pt Level 3 (23574) Complex EM visit Add On G2211 Diagnoses Osteopenia of multiple sites M85.89 Osteopenia location: multiple sites Polyarticular osteoarthritis M15.9 Encounter for monitoring denosumab therapy Z51.81; Z79.620
[2024-07-04 11:01] VITALS: BP 112/62; PULSE 74; O2SAT 99; BMI 21.1
--- OUTSIDE RECORDS SUMMARY | 2024-07-04 11:28 | XMS_ITS | Encounter Summary ---
Author Organization [employer] Address [address] [facility] [address] [place] [address] Care Team Providers Care Bulk Plant Manager Name Role Phone Unavailable Primary Care Provider Unavailabl e Encounter Details Date Type Department Care Team (Latest Contact Info) Description 01/19/2019 Abstract [facility] CONVERSIONS Dental, Provider, DDS Social History Tobacco [...] Description 11/16/2024 10:00 AM EDT Office Visit [facility] ADULT DENTAL [address] [place] [address] Robbi Turkaris [address] [place] [address] documented as of this encounter Visit Diagnoses Not on filedocumented in this encounter
== END 2024-07-04 11:44 | disposition home or self-care (01) ==
LOC: HO.RHE 10:41
PROVIDERS: PCP Internal Medicine; Visit Provider Student in an Organized Health Care Education/Training Program
DX: M85.89 Other specified disorders of bone density and structure, multiple sites (principal); M15.9 Polyosteoarthritis, unspecified; Z51.81 Encounter for therapeutic drug level monitoring; Z79.620 Long term (current) use of immunosuppressive biologic
CPT/HCPCS: 99213; G2211

== ENCOUNTER 2024-07-04 10:41 | Outpatient (REF) | payer OTHER, SELFPAY ==
--- NOTE | ~2024-07-04 | XR_ITS ---
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 Glenohumeral joint is unremarkable. A small bone spur is present in the greater tubercle of the proximal humerus. There is mild acromioclavicular arthropathy. No radiopaque foreign body. Normal visualized right chest. Impression: Unremarkable right shoulder. This document has been electronically signed by: Andrew Charles MD on 07/05/2024 16:35:41
--- NOTE | ~2024-07-04 | XR_ITS ---
CLINICAL HISTORY: M25.561 - Pain in right knee 3 views right knee Comparison: None Findings: No fractures or dislocation. No joint effusion. There is moderate degenerative narrowing of the medial femorotibial joint space. No radiopaque foreign body. Impression: There is mild degenerative narrowing of the medial femorotibial joint space. There is calcification within the lateral meniscus. 3 views left knee Comparison: None Findings: No fractures or dislocations. No joint effusion. No soft tissue calcifications. No radiopaque foreign body. Impression: There is moderate degenerative narrowing of the medial femorotibial joint space. This document has been electronically signed by: Andrew Charles MD on 07/05/2024 13:52:21
== END 2024-07-04 10:42 | disposition home or self-care (01) ==
LOC: HO.XRAY 10:41
PROVIDERS: PCP Internal Medicine; Visit Provider Student in an Organized Health Care Education/Training Program
DX: M85.89 Other specified disorders of bone density and structure, multiple sites (principal); M16.9 Osteoarthritis of hip, unspecified; Z79.620 Long term (current) use of immunosuppressive biologic; Z51.81 Encounter for therapeutic drug level monitoring
CPT/HCPCS: 73030; 73562; 96372; 99212; J0897

== ENCOUNTER → 2024-07-04 11:57 | Outpatient (BNV) | payer OTHER, SELFPAY | PROVIDERS: PCP Internal Medicine; Visit Provider Radiology Diagnostic Radiology | DX: M19.011 Primary osteoarthritis, right shoulder (principal); M19.012 Primary osteoarthritis, left shoulder; M17.0 Bilateral primary osteoarthritis of knee | CPT/HCPCS: 73030; 73562 ==

== ENCOUNTER 2024-09-04 10:35 | Outpatient (REF) | payer OTHER, SELFPAY ==
--- OUTSIDE RECORDS SUMMARY | 2024-09-04 11:47 | XMS_ITS | Patient Health Record ---
Author Organization [employer] [facility] Address [address] [place] [address] Care Team Providers Care Tire Changer Aircraft Name Role Phone Cristhian Marcos Jr Reason For Referral No Information Plan Of Treatment No Information
--- OUTSIDE RECORDS SUMMARY | 2024-09-04 11:47 | XMS_ITS | Encounter Summary ---
Author Organization [employer] Address [address] [facility] [address] [place] [address] Care Team Providers Care Philosophy Instructor Name Role Phone Unavailable Primary Care Provider Unavailabl e Encounter Details Date Type Department Care Team (Latest Contact Info) Description 01/19/[address] [facility] CONVERSIONS Dental, Provider, DDS Social [...] Description 11/16/2024 10:00 AM EDT Office Visit [facility] ADULT DENTAL [address] [place] [address] Robbi Turkaris [address] [place] [address] documented as of this encounter Visit Diagnoses Not on filedocumented in this encounter
== END 2024-09-04 10:36 | disposition home or self-care (01) ==
LOC: HO.MAMMO 10:35
PROVIDERS: Visit Provider Internal Medicine
DX: Z12.31 Encounter for screening mammogram for malignant neoplasm of breast (principal)
CPT/HCPCS: 77063; 77067

== ENCOUNTER → 2024-09-04 10:45 | Outpatient (BNV) | payer OTHER, SELFPAY | PROVIDERS: Visit Provider Internal Medicine | DX: Z12.31 Encounter for screening mammogram for malignant neoplasm of breast (principal) | CPT/HCPCS: 77063; 77067 ==

== ENCOUNTER 2024-09-29 10:11 | Outpatient (REF) | payer OTHER, SELFPAY ==
--- OUTSIDE RECORDS SUMMARY | 2024-09-29 10:17 | XMS_ITS | Patient Health Record ---
Author Organization [facility] [facility] Address [address] [place] [address] Care Team Providers Care Residential Field Manager Name Role Phone Cristhian Marcos Jr Reason For Referral No Information Plan Of Treatment No Information
--- OUTSIDE RECORDS SUMMARY | 2024-09-29 10:17 | XMS_ITS | Encounter Summary ---
Author Organization [employer] Address [address] [facility] [address] [place] [address] Care Team Providers Care Knuckle Bender Name Role Phone Unavailable Primary Care Provider Unavailabl e Encounter Details Date Type Department Care Team (Latest Contact Info) Description 01/19/2019 Abstract [facility] CONVERSIONS Dental, Provider, DDS Social History [...] Description 11/16/2024 10:00 AM EDT Office Visit [facility] ADULT DENTAL [address] [place] [address] Robbi Turkaris [address] [place] [address] documented as of this encounter Visit Diagnoses Not on filedocumented in this encounter
[2024-09-29 10:51] LABS: Appearance Urine Cloudy; Glucose Urine UA Negative (Negative); PH 5.5 (5.0-9.0); Specific Gravity - Urine >= 1.030 (1.005-1.025); UMIC TRIGGER UACC YES
[2024-09-29 11:03] LABS: UACC Culture Trigger YES
== END 2024-09-29 10:12 | disposition home or self-care (01) ==
LOC: HO.LAB 10:11
PROVIDERS: PCP Internal Medicine; Visit Provider Internal Medicine
DX: R35.0 Frequency of micturition (principal); N39.0 Urinary tract infection, site not specified
CPT/HCPCS: 81001; 87086; 87088; 87186

== ENCOUNTER 2024-10-19 12:28 | Outpatient (AMB) | payer OTHER, SELFPAY ==
--- NOTE | 2024-10-19 13:04 | A.OFFVIS_ITS ---
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 banana Allergy (Intermediate, Uncoded 04/12/24 09:44) rash pollens Allergy (Intermediate, Uncoded 04/12/24 09:44) sneeze, watery eyes HPI Comments Details: Presenting for annual exam. No complaints. The patient has had 3 urinary tract infections post laparoscopic BSO Last Pap/HPV was in 01/30 was negative Last Mammogram was in 09/01 was BI-RADS 1 Last Colonoscopy was in 02/25, the recommendation was to repeat in 10 years Last DEXA scan done in 03/03 was the high-risk category, the patient was refer to rheumatology, was started on Prolia and the patient is scheduled for follow-up [facility] Medical History TMJ (temporomandibular joint disorder) Lockjaw Mild recurrent major depression SONALI (generalized anxiety disorder) Polyarthralgia Right hip pain Right shoulder pain Depression with anxiety Mild asthma Chest pain Dyslipidemia Fibromyalgia Surgical History H/O bilateral salpingectomy H/O bilateral oophorectomy History of tooth extraction TMJ derangement History of mammogram History of bunionectomy History of tubal ligation History of laparoscopic cholecystectomy History of lumbar fusion History of section History of esophagogastroduodenoscopy (EGD) Hx of colonoscopy Family History Father Heart failure Mother Heart problem Brother Stomach tumor (benign) Brother Kidney problem Stroke Brother Myocardial infarction Brother Cerebral brain hemorrhage Heart problem Social History Housing: Apartment Alcohol intake: never Patient Tobacco Use Status: Current everyday Tobacco user Tobacco use type: Cigarette Cigarette Packs Per Day: 0.5 Cigarettes Per Day: 10 e-Cigarette/Vaping Use: Never Used Second Hand Smoke Exposure: Yes service: No Current occupational status: unemployed Cognitive needs: No Hearing needs: No Vision needs: Yes Female Reproductive History Menstrual Date of last pap smear: 01/13/23 (negative pap smear. negative hpv ) Date of Mammogram: 09/04/24 (bi rad 1) Date of last Bone Density Screenin02/26/23 Review of Systems Const All systems reviewed & are unremarkable except as noted in HPI and below Physical Exam Vital Signs: Last Vital Signs BP 128/70 10/19/24 13:11 BMI result Body Mass Index 21.0 General: Yes no CVA tenderness External Female Exam: normal external appearance and normal appearance of the urethra Speculum Exam - Vagina: normal appearance of the vagina, normal palpation, no lesions and no masses Speculum Exam - Cervix: normal appearance of the cervix, normal palpation, no lesions, no masses and nontender Bimanual exam- vagina & uterus: normal bimanual exam, normal palpation, uterine size normal, normal palpation, uterine shape normal, No Cervical tenderness present and non-tender Bimanual Exam- Adnexa, other: Other (No pelvic masses) Back/Spine/Pelvis Back: no CVA tenderness Assessment & Plan Assessment & Plan (1) Well woman exam: Code(s): Z01.419 - Encounter for gynecological examination (general) (routine) without abnormal findings Category: Medical Plan: Co testing not indicated since the patient 's age is above 65 with no history of abnormal Pap smears last 25 years, adequately screen for the last 10 years with no history of immunosuppression. Counseled the patient about the recommended dietary allowance of 1200 mg of Calcium & 800 IU of vitamin D. Instructions given the patient to schedule next screening Mammogram in 09/02 The patient was instructed to perform monthly self-breast exams and to schedule an annual exam in a year; All questions answered and the patient verbalized understanding. (2) Microscopic hematuria: Code(s): R31.29 - Other microscopic hematuria Category: Medical Plan: Urine dip showed microscopic hematuria, urine culture sent. Will repeat urine dip in 2 weeks. Discussed with the patient the possible causes of microscopic hematuria including but not limited to: interstitial cystitis, polyps, stones, masses, urethral inflammatory processes and others. If Urine Culture is negative and repeat urine dip in 2 weeks shows persistent microscopic hematuria, will proceed with CT abdomen/pelvis and urology referral. Instructions given the patient to schedule a 2 week urine dip follow-up appointment. All questions answered and the patient verbalized understanding. Orders: Orders Urine Culture Today R31.29 - Other microscopic hematuria Coding Level of Care Code Est Pt Level 3 (96220) Est Pt Prev Care >65y(53064) Diagnoses Well woman exam Z01.419 Microscopic hematuria R31.29
[2024-10-19 13:11] VITALS: BP 128/70; BMI 21.0
--- OUTSIDE RECORDS SUMMARY | 2024-10-19 16:40 | XMS_ITS | Patient Health Record ---
Author Organization [facility] Address [address] [place] [address] Care Team Providers Care Chart Collector Name Role Phone Cristhian Marcos Jr Reason For Referral No Information Plan Of Treatment No Information
--- OUTSIDE RECORDS SUMMARY | 2024-10-19 16:40 | XMS_ITS | Clinical Summary ---
Author Organization [employer] Address [address] [facility] [address] [place] [address] Care Team Providers Care Blending Machine Feeder Name Role Phone Unavailable Primary Care Provider [...] (09/08/2023): Added automatically from request for surgery [id number] Chronic back pain 05/31/2012 Depressive disorder 05/31/2012 [...] Team (Late st Contact Info) Description 11/16/2024 10:15 AM EDT Office Visit [facility] ADULT DENTAL [address] [place] [address] Elvira Turk [address] [place] [address] Health Maintenance Due Date Last Done Comments CT Colonography 1956 Colonoscopy 1956 Colorectal Cancer Screening 1956 Depression Screening 1956 FIT DNA/Cologuard 1956 FIT 1956 FOBT 1956 Lipid Panel 1956 SDOH Screening 1956 Sigmoidoscopy 1956 Alcohol/Substance Use Screening 1968 Hepatitis C Screening 1974 Mammogram 1996 DTaP/Tdap/Td Vaccines (1 - Tdap) 09/22/2000 09/21/2000 Dental Oral Exam 03/26/2024 09/23/2023, 11/2020, 01/19/2019, Additional history exists Dental X-Ray: Bitewings 09/23/2024 09/23/19 24, 09/17/2020, 01/19/2019, Additional history exists COVID-19 Vaccine ( season) 2024 12/14/2022, 02/05/2021, 06/26/2020, Additional history exists Influenza Vaccine (#1) 2024 , 10/04/2022, 11/27/2021, Additional history exists Dental Prophylaxis 11/09/2024 05/09/2024, 0 10/22/2023, 09/17/2020, Additional history exists Tobacco Screening 12/14/2024 12/15/2023 Dental X-Ray: Full Mouth 09/08/2026 09/08/2023, 09/08 RSV Patients and Patients Aged 60 years or older (1 - 1-dose 75+ series) 12/31/2031 Hepatitis B Vaccines Completed 02/25/2001, 10/29/2000, 09/28/2000 Pneumococcal Vaccine: 50+ Years Completed 08/02/2022 Zoster Vaccines Completed 12/11/2022, 08/03/2022 HIB Vaccines Aged Out No longer eligi [...] Associated Diagnosis Comments PROPHYLAXIS - ADULT Routine 05/09/2024 1 0:00 AM EDT Dental calculus Periodontal disease BITEWINGS - 4 RADIOGRAPHIC IMAGES Routine 09/23/2023 10:30 AM EDT PERIODIC ORAL EVALUATION - ESTABLISHED PATIENT Routine 09/23/2023 10:30 AM EDT PANORAMIC RADIOGRAPHIC IMAGE Routine 09/08/2023 9:00 AM EDT from Last 3 Months or Most Recently Relevant to Health Maintenance Insurance [facility]
--- OUTSIDE RECORDS SUMMARY | 2024-10-19 16:40 | XMS_ITS | Encounter Summary ---
Author Organization [employer] Address [address] [facility] [address] [place] [address] Care Team Providers Care Miller Head Name Role Phone Unavailable Primary Care Provider Unavailabl e Encounter Details Date Type Department Care Team (Latest Contact Info) Description 09/17/2020 Abstract [facility] CONVERSIONS Dental, Provider, DDS Social History [...] Description 11/16/2024 10:15 AM EDT Office Visit [facility] ADULT DENTAL [address] [place] [address] Robbi Turkaris [address] [place] [address] documented as of this encounter Visit Diagnoses Not on filedocumented in this encounter
--- OUTSIDE RECORDS SUMMARY | 2024-10-19 16:40 | XMS_ITS | Encounter Summary ---
Author Organization [employer] Address [address] [facility] [address] [place] [address] Care Team Providers Care Plastics Repairer Name Role Phone Unavailable Primary Care Provider Unavailabl e Encounter Details Date Type Department Care Team (Latest Contact Info) Description 01/19/2019 Abstract [facility] CONVERSIONS Dental, Provider, DDS Social [...] Description 11/16/2024 10:15 AM EDT Office Visit [facility] ADULT DENTAL [address] [place] [address] Robbi Turkaris [address] [place] [address] documented as of this encounter Visit Diagnoses Not on filedocumented in this encounter
--- OUTSIDE RECORDS SUMMARY | 2024-10-19 16:40 | XMS_ITS | Encounter Summary ---
Demographics Address [address] [facility] [address] [place] [address] Home Phone Mobile Phone Preferred Language es Marital Status Muslim Affiliation Unknown Race Other Race Ethnic Group Unknown Author Organization [employer] Address [address] [place] [address] Care Team Providers Care Trade Facilitator Name Role Phone Unavailable Primary Care Provider Unavailabl e Reason for Visit * Reason Onset Date Comments re send medication to [facility] 09/08/2023 Encounter Details Date Type Department Care Team ([facility] Contact Info) Description 09/08/2023 Telephone [facility] ADULT DENTAL [address] [place] [address] Irvin Dale DDS [address] [place] [address] [facility] [...] yesterday requesting medication to be sent to [facility] on [facility] in [place]. Prior message request documented. She called in again today because thee medication is not in [facility]. Verified chart and medication is in [facility] pharmacy but she is in so much pain she cannot drive down and she is close to [facility]. She is looking for script to be sent [facility] [address] [address] [facility]. * Telephone Encounter - Yessy Roger - 09/08/2023 12:16 PM EDT Please send medication to [facility] on [facility] documented in this encounter Plan of Treatment Upcoming Encounters Date Type Department Care Team (Late st Contact Info) Description 11/16/2024 10:15 AM EDT Office Visit [facility] ADULT DENTAL [address] [place] [address] Elvira Turk [address] [place] [address] documented as of this encounter Visit Diagnoses Not on filedocumented in this encounter
== END 2024-10-19 14:01 | disposition home or self-care (01) ==
LOC: HO.HWS 12:28
PROVIDERS: PCP Internal Medicine; Visit Provider Obstetrics & Gynecology
DX: Z01.419 Encounter for gynecological examination (general) (routine) without abnormal findings (principal); R31.29 Other microscopic hematuria
CPT/HCPCS: 99213; 99397; 99459

== ENCOUNTER 2024-10-19 12:28 | Outpatient (REF) | payer OTHER, SELFPAY | END 2024-10-19 12:29 | disposition home or self-care (01) | LOC: HO.LNP 12:28 | PROVIDERS: PCP Internal Medicine; Visit Provider Obstetrics & Gynecology | DX: Z01.419 Encounter for gynecological examination (general) (routine) without abnormal findings (principal); R31.29 Other microscopic hematuria | CPT/HCPCS: 81002; 87086; 87088; 87186; 99212; 99397 ==

== ENCOUNTER 2024-11-02 10:10 | Outpatient (AMB) | payer OTHER, SELFPAY ==
--- NOTE | 2024-11-02 10:21 | A.OFFVIS_ITS ---
Intake Visit Reasons: repeat udip Allergies mold Allergy (Intermediate, Verified 10/19/24 13:10) Hives alendronate sodium Adverse Reaction (Verified 10/19/24 13:10) Chest Pain dust Allergy (Intermediate, Uncoded 04/12/24 09:44) sneeze, watery eyes food sensitivities i.e. banana Allergy (Intermediate, Uncoded 04/12/24 09:44) rash pollens Allergy (Intermediate, Uncoded 04/12/24 09:44) sneeze, watery eyes HPI Comments Details: Presenting for repeat urine dip. Last visit the patient had microscopic hematuria, urine culture grew Klebsiella pneumoniae sensitive to nitrofurantoin, the patient was treated with Macrobid 100 mg p.o. b.i.d. for 5 days, doing well with no complaints. The patient has been having recurrent UTIs [facility] Medical History TMJ (temporomandibular joint disorder) Lockjaw Mild recurrent major depression SONALI (generalized anxiety disorder) Polyarthralgia Right hip pain Right shoulder pain Depression with anxiety Mild asthma Chest pain Dyslipidemia Fibromyalgia Surgical History H/O bilateral salpingectomy H/O bilateral oophorectomy History of tooth extraction TMJ derangement History of mammogram History of bunionectomy History of tubal ligation History of laparoscopic cholecystectomy History of lumbar fusion History of section History of esophagogastroduodenoscopy (EGD) Hx of colonoscopy Family History Father Heart failure Mother Heart problem Brother Stomach tumor (benign) Brother Kidney problem Stroke Brother Myocardial infarction Brother Cerebral brain hemorrhage Heart problem Social History Housing: Apartment Alcohol intake: never Patient Tobacco Use Status: Current everyday Tobacco user Tobacco use type: Cigarette Cigarette Packs Per Day: 0.5 Cigarettes Per Day: 10 e-Cigarette/Vaping Use: Never Used Second Hand Smoke Exposure: Yes service: No Current occupational status: unemployed Cognitive needs: No Hearing needs: No Vision needs: Yes Review of Systems Const All systems reviewed & are unremarkable except as noted in HPI and below Reports as per HPI and Reports no additional complaints GI Reports no additional complaints Reports no additional complaints Results AMB Urinalysis Dipstick UR Leukocytes Moderate Last Edit by Dyan Bunch LPN on 11/02/24 10 :29 UR Nitrite Positive Last Edit by Dyan Bunch LPN on 11/02/24 10:29 UR Urobilinogen 2 Last Edit by Dyan Bunch LPN on 11/02/24 10:29 UR Protein Trace Last Edit by Dyan Bunch LPN on 11/02/24 10:29 UR Ph 6.5 Last Edit by Dyan Bunch LPN on 11/02/24 10:29 UR Blood Small Last Edit by Dyan Bunch LPN on 11/02/24 10:29 UR Specific [place] 1.015 Last Edit by Dyan Bunch LPN on 11/02/24 10:29 UR Ketone Small Last Edit by Dyan Bunch LPN on 11/02/24 10:29 UR Bilirubin Negative Last Edit by Dyan Bunch LPN on 11/02/24 10: 29 UR Glucose Negative Last Edit by Dyan Bunch LPN on 11/02/24 10:29 Results Reviewed Results Reviewed: Laboratory Last Values Urine pH (Clinic) 6.5 11/02/24 10:26 Specific [place] (Clinic) 1.015 11/02/24 10:26 Ur Protein (Clinic) Trace 11/02/24 10:26 Ur Ketones (Clinic) Small 11/02/24 10:26 Urine Blood (Clinic) Small 11/02/24 10:26 Urine Nitrite Positive 11/02/24 10:26 Urine Bilirubin (Clinic) Negative 11/02/24 10:26 Urobilinogen (Clinic) 2 11/02/24 10:26 Leukocyte Esterase (Clinic) Moderate 11/02/24 10:26 Urine Glucose (Clinic) Negative 11/02/24 10:26 Assessment & Plan Assessment & Plan (1) Microscopic hematuria: Comment: With recurrent UTI Code(s): R31.29 - Other microscopic hematuria Category: Medical Plan: Urine dip showed microscopic hematuria with nitrites, urine culture sent will send the results. The patient was referred to urology for further management Instructions given the patient to schedule a 2 week appointment for repeat urine dip Orders: Orders AMB Urinalysis Dipstick Today N39.0 - Urinary tract infection, site not specified, R30.0 - Dysuria Urine Culture Today R31.29 - Other microscopic hematuria Coding Level of Care Code Est Pt Level 3 (95154) Diagnoses Microscopic hematuria R31.29
--- OUTSIDE RECORDS SUMMARY | 2024-11-02 12:21 | XMS_ITS | Encounter Summary ---
Author Organization [employer] Address [address] [facility] 7[address] [place] [address] Care Team Providers Care Phone Triage Specialist Name Role Phone Unavailable Primary Care Provider Unavailabl e Encounter Details Date Type Department Care Team (Latest Contact Info) Description 09/17/[address] [facility] CONVERSIONS Dental, Provider, DDS Social History [...] Description 11/16/2024 10:15 AM EDT Office Visit [facility] ADULT DENTAL [address] [place] [address] Robbi Turkaris [address] [place] [address] documented as of this encounter Visit Diagnoses Not on filedocumented in this encounter
--- OUTSIDE RECORDS SUMMARY | 2024-11-02 12:21 | XMS_ITS | Encounter Summary ---
Demographics Address [address] [place] [address] Home Phone Mobile Phone Preferred Language es Marital Status Pentecostal Affiliation Unknown Race Other Race Ethnic Group Unknown Author Organization [employer] Address [address] [facility] [address] [place] [address] Care Team Providers Care Irrigation Teacher Name Role Phone Unavailable Primary Care Provider Unavailabl e Reason for Visit * Reason Onset Date Comments re send medication to [facility] 09/08/2023 Encounter Details Date Type Department Care Team ([facility] Contact Info) Description 09/08/2023 Telephone [facility] ADULT DENTAL [address] [place] [address] Irvin Dale DDS [address] [place] [address] re send medication to [facility] Social History Tobacco Use Types Packs/Day [...] yesterday requesting medication to be sent to [facility] on [facility] in [place]. Prior message request documented. She called in again today because thee medication is not in [facility]. Verified chart and medication is in [facility] pharmacy but she is in so much pain she cannot drive down and she is close to [facility]. She is looking for script to be sent [facility] [address] [facility] [address] [facility]. * Telephone Encounter - Yessy Roger - 09/08/2023 12:16 PM EDT Please send medication to [facility] on [facility] documented in this encounter Plan of Treatment Upcoming Encounters Date Type Department Care Team (Late st Contact Info) Description 11/16/2024 10:15 AM EDT Office Visit [facility] ADULT DENTAL [address] [place] [address] Elvira Turk [address] [place] [address] documented as of this encounter Visit Diagnoses Not on filedocumented in this encounter
--- OUTSIDE RECORDS SUMMARY | 2024-11-02 12:21 | XMS_ITS | Encounter Summary ---
Author Organization [employer] Address [address] [facility] [address] [place] [address] Care Team Providers Care Residential Property Consultant Name Role Phone Unavailable Primary Care Provider Unavailabl e Encounter Details Date Type Department Care Team (Latest Contact Info) Description 01/19/2019 Abstract [facility] CONVERSIONS Dental, Provider, DDS Social History [...] Description 11/16/2024 10:15 AM EDT Office Visit [facility] ADULT DENTAL [address] [place] [address] Robbi Turkaris [address] [place] [address] documented as of this encounter Visit Diagnoses Not on filedocumented in this encounter
--- OUTSIDE RECORDS SUMMARY | 2024-11-02 12:21 | XMS_ITS | Patient Health Record ---
Author Organization [employer] [facility] Address [address] [place] [address] Care Team Providers Care Oil Tank Car Cleaner Name Role Phone Cristhian Marcos Jr Reason For Referral No Information Plan Of Treatment No Information
--- OUTSIDE RECORDS SUMMARY | 2024-11-02 12:21 | XMS_ITS | Clinical Summary ---
Author Organization [employer] Address [address] [facility] [address] [place] [address] Care Team Providers Care High Value Associate Name Role Phone Unavailable Primary Care Provider [...] (09/08/2023): Added automatically from request for surgery [id number] Chronic back pain 05/31/2012 Depressive disorder 05/31/2012 [...] Description 11/16/2024 10:15 AM EDT Office Visit [facility] ADULT DENTAL [address] [place] [address] Elvira Turk [address] [place] [address] Health Maintenance Due Date Last Done Comments [...] Most Recently Relevant to Health Maintenance Insurance [facility]
== END 2024-11-02 10:43 | disposition home or self-care (01) ==
LOC: HO.HWS 10:10
PROVIDERS: PCP Internal Medicine; Visit Provider Obstetrics & Gynecology
DX: R30.0 Dysuria (principal); N39.0 Urinary tract infection, site not specified; R31.29 Other microscopic hematuria
CPT/HCPCS: 99213

== ENCOUNTER 2024-11-02 10:10 | Outpatient (REF) | payer OTHER, SELFPAY | END 2024-11-02 10:11 | disposition home or self-care (01) | LOC: HO.LNP 10:10 | PROVIDERS: PCP Internal Medicine; Visit Provider Obstetrics & Gynecology | DX: R31.29 Other microscopic hematuria (principal) | CPT/HCPCS: 81002; 87086; 87088; 87186; 99212 ==

== ENCOUNTER 2024-11-21 08:38 | Outpatient (AMB) | payer OTHER, SELFPAY ==
--- OUTSIDE RECORDS SUMMARY | 2024-11-16 10:15 | XMS_ITS | Encounter Summary ---
Author Organization [employer] Address [address] [place] [address] [address] [place] [address] Care Team Providers Care Sack Cleaning Hand Name Role Phone Unavailable Primary Care Provider Unavailabl e Reason for Visit * Reason Comments Routine Cleaning Dental Exam x-rays Perio chart Encounter Details Date Type Department Care Team ([facility] st Contact Info) Description 11/16/2024 10:15 AM EDT Office Visit [facility] ADULT DENTAL [address] [place] [address] Elvira Turk [address] [place] [address] Abfraction (Primary Dx); Missing teeth, acquired; Dental plaque Social History Tobacco Use Types Packs/Day Years [...] AM EDT documented as of this encounter Last Filed Vital Signs Vital Sign Reading Time Taken Comments Blood Pressure 134/72 11/16/2024 9:51 AM EDT Pulse - - Temperature - - Respiratory Rate - - Oxygen Saturation - - Inhaled Oxygen Concentration - - Weight - - Height - - Body Mass Index - - documented in this encounter Progress Notes * Elvira Turk - 11/16/2024 10:15 AM EDT Patient ID: Grazyna Pereira is a 68 y.o. female. Time Out: Timeout Date: 11/16/24, Timeout Time: 1002 (X-rays, P. exam, Perio chart, Prophy) Location: [facility] Tooth: Maxilla and Mandible Procedure: Exam, X-rays, Prophylaxis, and Perio chart Verified the above with patient, medical office assistant instructor, and provider. Confirmed via patient's chart, intraorally and by radiographs. Medical Billing Coordinator: not applicable Medical Hx: Vitals: Blood pressure 134/72. Medications, Med Hx reviewed with patient and updated in chart. Treatment Provided Dental procedures in this visit D1110 - PROPHYLAXIS - ADULT (Completed) Service provider: Elvira Wall provider: Irvin Dale DDS D0274 - BITEWINGS - 4 RADIOGRAPHIC IMAGES (Completed) Service provider: Elvira Wall provider: Irvin Dale DDS D0220 - INTRAORAL - PERIAPICAL FIRST RADIOGRAPHIC IMAGE (Completed) Service provider: Elvira Wall provider: Irvin Dale DDS D0230 - INTRAORAL - PERIAPICAL EACH ADDITIONAL RADIOGRAPHIC IMAGE 22,23 (Completed) Service provider: Elvira Wall provider: Irvin Dale DDS D1330 - ORAL HYGIENE INSTRUCTIONS (Completed) Service provider: Elvira Wall provider: Irvin Dale DDS D9450 - CASE PRESENTATION, DETAILED AND EXTENSIVE TREATMENT PLANNING (Completed) Service provider: Elvira Wall provider: Irvin Dale DDS D1206 - TOPICAL APPLICATION OF FLUORIDE VARNISH (Completed) Service provider: Elvira Wall provider: Irvin Dale DDS D0230 - INTRAORAL - PERIAPICAL EACH ADDITIONAL RADIOGRAPHIC IMAGE 26,27 (Completed) Service provider: Elvira Wall provider: Irvin Dale DDS D0120 - PERIODIC ORAL EVALUATION - ESTABLISHED PATIENT (Completed) Service provider: Irvin Dale DDS [place] provider: Irvin Dale DDS Instruments Used: Ultrasonic Scalers, Hand Scalers, and Prophy angle Fluoride: 5% NaF varnish applied and POI given Oral Cancer Screening: No lesions Head/Neck Exam: No Lesions Calculus: trace Plaque: Light Stain: some discoloration on exposed roots Bleeding: trace Gingiva: recession, pink OH: Good Perio Chart: Completed, still exhibits few 4 mm to 5 mm pockets on molars Oral hygiene instructions provided to patient including brushing technique and flossing. Recommendations: [place] two times daily, modified engel technique, Floss daily, Electric toothbrush, Soft bristle toothbrush, [place] Tongue, Anti-sensitivity toothpaste Recall Frequency: 6 mo NV: [place] for cheondoism, and 6 months prophy fluoride Hygienist: Elvira uTrk RDH * Irvin Dale DDS - 11/16/2024 10:15 AM EDT Dental procedures in this visit D1110 - PROPHYLAXIS - ADULT (Completed) Service provider: Elvira Turk [place] provider: Irvin Dale DDS D0274 - BITEWINGS - 4 RADIOGRAPHIC IMAGES (Completed) Service provider: Elvira Turk [place] provider: Irvin Dale DDS D0220 - INTRAORAL - PERIAPICAL FIRST RADIOGRAPHIC IMAGE (Completed) Service provider: Elvira Turk [place] provider: Irvin Dale DDS D0230 - INTRAORAL - PERIAPICAL EACH ADDITIONAL RADIOGRAPHIC IMAGE 22,23 (Completed) Service provider: Elvira Turk [place] provider: Irvin Dale DDS D1330 - ORAL HYGIENE INSTRUCTIONS (Completed) Service provider: Elvira Turk [place] provider: Irvin aDle DDS D9450 - CASE PRESENTATION, DETAILED AND EXTENSIVE TREATMENT PLANNING (Completed) Service provider: Elvira Turk [place] provider: Irvin Dale DDS D1206 - TOPICAL APPLICATION OF FLUORIDE VARNISH (Completed) Service provider: Elvira Turk [place] provider: Irvin Dale DDS D0230 - INTRAORAL - PERIAPICAL EACH ADDITIONAL RADIOGRAPHIC IMAGE 26,27 (Completed) Service provider: Elvira Turk [place] provider: Irvin Dale DDS D0120 - PERIODIC ORAL EVALUATION - ESTABLISHED PATIENT (Completed) Service provider: Irvin Dale DDS [place] provider: Irvin Dale DDS Patient ID: Grazyna Pereira is a 68 y.o. female. Time Out: Timeout Date: 11/16/24, Timeout Time: 1002 (X-rays, P. exam, Perio chart, Prophy) Location: [facility] Tooth: Maxilla and Mandible Procedure: Exam, X-rays, and Prophylaxis Verified the above with patient, medical office assistant instructor, and provider. Confirmed via patient's chart, intraorally and by radiographs. Medical Billing Coordinator: not applicable Chief Complaint Patient presents with Routine Cleaning Dental Exam x-rays Perio chart Medical Hx: Vitals: Blood pressure 134/72. Medical History[1] Medications: Encounter Medications[2] Objective HPI Asymptomatic Head and Neck Exam: Lymph Nodes, Lips, Palate, Buccal Mucosa, Floor of Mouth, Tongue, Tonsils, Alveolar Ridges, Oropharynx, Salivary Ducts, Vestibules , and TMJ normal Details: Skin NSF OCS: negative Dental Exam As charted Plaque Missing teeth acquired Abfraction Removable partial functioning well Reference tooth chart for additional findings. Oral Cancer Risk: Moderate Risk smoker Oral Hygiene Instructions: [place] two times daily, modified engel technique, Floss daily, Electric toothbrush, Soft bristle toothbrush, [place] Tongue Caries Risk Assessment: Low- no risk factor Assessment/Plan KAYLENE X ray Prophy Jean-Paul Recall Patient tolerated procedure well, all questions answered and expressed understanding. Dismissed in good condition. NV: Jean-Paul Reed Polisher: Elvira Turk Dentist: Irvin Dale DDS [1] Past Medical History: Diagnosis Date Arthritis Asthma Chest pain GERD (gastroesophageal reflux disease) Low blood pressure Metal plate in upper extremity Ovarian cyst Pt having ovaries removed 05/15/24 in [facility] Periodontal disease [2] Outpatient Encounter Medications as of 11/16/2024 Medication Sig Dispense Refill alendronate (Fosamax) 70 MG tablet TOME ANTHONY TABLETA POR V A ORAL ONCE WEEKLY ALPRAZolam (Xanax) 0.5 MG tablet TAKE 1 TABLET ORALLY 2 TIMES A DAY NEEDED FOR ANXIETY FOR 30 DAYS Calcium Plus Vitamin D3 600-12.5 MG-MCG capsule TOME 1 C PSULA POR V A ORAL ONCE DAILY FOR 90 DAYS chlorhexidine (Peridex) 0.12 % solution Swish 15 mL morning and night for 1 minute. Spit, do not swallow. Do not eat or drink for 30 minutes following use. 473 mL 0 DULoxetine (Cymbalta) [address] capsule Take 60 mg by mouth 2 times daily. gabapentin (Neurontin) 600 MG tablet Take 1 tablet by mouth every 6 (six) hours during the day. Hydrocortisone, Perianal, 1 % cream APPLY 1 APPLICATION TOPICALLY 2 TIMES A DAY NEEDED FOR SKIN IRRITATION FOR 30 DAYS Magnesium Oxide -Mg Supplement 500 MG capsule TOME 1 C PSULA POR V A ORAL TODOS LOS D nitrofurantoin, macrocrystal-monohydrate, (Macrobid) 100 MG capsule Take 1 capsule by mouth 2 timesdaily. oxyCODONE (Roxicodone) 10 MG immediate release tablet TAKE 1 TABLET BY MOUTH EVERY 6 HOURS NEEDED FOR PAIN FOR 30 DAYS pantoprazole (ProtoNix) 40 MG EC tablet Take 40 mg by mouth 2 times daily. QUEtiapine (SEROquel) 400 MG tablet Take 400 mg by mouth at bedtime. sulfamethoxazole-trimethoprim (Bactrim DS) 800-160 MG tablet TAKE 1 TAB ORALLY 2 TIMES A DAY FOR 5 DAYS No facility-administered encounter medications on file as of 11/16/2024. documented in this encounter Plan of Treatment Upcoming Encounters Date Type Department Care Team (Late st Contact Info) Description 05/21/2025 9:30 AM EDT Office Visit [facility] ADULT DENTAL [address] [place] [address] Elvira Turk [address] [place] [address] 05/21/2025 10:30 AM EDT Office Visit [facility] ADULT DENTAL [address] [place] [address] Irvin Dale DDS [address] [place] [address] Scheduled Orders Name Type Priority Associated Diagnoses Orde r Schedule 20 B(V) 20 B(V) RESIN-BASED COMPOSITE - 1 SURF, POSTERIOR Dental Routine [address] arting 11/16/2024 PROPHYLAXIS - ADULT Dental Routine 1 Occ urrences starting 11/16/2024 CASE PRESENTATION, DETAILED AND EXTENSIVE TREATMENT PLANNING Dental Routine 1 Occurrences starting 11/16/2024 ORAL HYGIENE INSTRUCTIONS Dental Routine 1 Occurrences starting 11/16/2024 TOPICAL APPLICATION OF FLUORIDE VARNISH Dental Routine 1 Occurrences s tarting 11/16/2024 documented as of this encounter Procedures Procedure Name Priority Date/Time Associated Diagnosis Comments TOPICAL APPLICATION OF FLUORIDE VARNISH Routine 11/16/2024 10:15 AM EDT Abfraction Missing teeth, acquired Dental plaque PROPHYLAXIS - ADULT Routine 11/16/2024 1 0:15 AM EDT Abfraction Missing teeth, acquired Dental plaque PERIODIC ORAL EVALUATION - ESTABLISHED PATIENT Routine 11/16/2024 10:15 AM EDT ORAL HYGIENE INSTRUCTIONS Routine 11/16/2024 10:15 AM EDT Abfraction Missing teeth, acquired Dental plaque INTRAORAL - PERIAPICAL FIRST RADIOGRAPHIC IMAGE Routine 11/16/2024 10:15 AM EDT Abfraction Missing teeth, acquired Dental plaque 26,27 INTRAORAL - PERIAPICAL EACH ADDITIONAL RADIOGRAPHIC IMAGE Routine 11/16/2024 10:15 AM EDT Abfraction Missing teeth, acquired Dental plaque 22,23 INTRAORAL - PERIAPICAL EACH ADDITIONAL RADIOGRAPHIC IMAGE Routine 11/16/2024 10:15 AM EDT Abfraction Missing teeth, acquired Dental plaque CASE PRESENTATION, DETAILED AND EXTENSIVE TREATMENT PLANNING Routine 11/16/2024 10:15 AM EDT Abfraction Missing teeth, acquired Dental plaque BITEWINGS - 4 RADIOGRAPHIC IMAGES Routine 11/16/2024 10:15 AM EDT Abfraction Missing teeth, acquired Dental plaque documented in this encounter Visit Diagnoses Diagnosis Abfraction- Primary Missing teeth, acquired Dental plaque Accretions on teeth documented in this encounter
--- NOTE | 2024-11-21 08:44 | A.OFFPC_ITS ---
Vital Signs 11/21/24 08:46 Height 5 ft 1 in Weight 117 lb 6 oz BMI 22.2 BP 110/64 Blood Pressure Location Lt brachial Position Sitting Pulse 89 Pulse Source Pulse Oximeter Temp 97.1 F Temp Source Temporal Artery Scan Pulse Oximetry (%) 97 Oxygen Delivery Method Room Air Intake Visit Reasons: annual exam Intake Note: Patient is here today for a physical. Help Desk Intern Required: No Cardiovascular Physician Assistant: Not Required per policy Accompanied by: Self / Same As Patient Allergies mold Allergy (Intermediate, Verified 11/21/24 09:12) Hives alendronate sodium Adverse Reaction (Verified 11/21/24 09:12) Chest Pain dust Allergy (Intermediate, Uncoded 11/21/24 09:12) sneeze, watery eyes food sensitivities i.e. banana Allergy (Intermediate, Uncoded 11/21/24 09:12) rash pollens Allergy (Intermediate, Uncoded 11/21/24 09:12) sneeze, watery eyes Medication List - Last Reconciled 11/21/24 by Grazyna Mcgraw MD albuterol sulfate 90 mcg/actuation 2 puffs inhalation Q6-8H 30 days alprazolam 0.5 mg PO BID PRN 30 days bisacodyl (Dulcolax (bisacodyl)) 10 mg (2 x 5 mg) PO BEDTIME calcium carbonate-vitamin D3 600 mg-12.5 mcg (500 unit) (Calcium with Vit D3) 1 cap PO .once a day 90 days cyclobenzaprine 5 mg PO BID PRN 30 days denosumab (Prolia) 60 mg subcut [id number] duloxetine 60 mg PO BID gabapentin 600 mg PO TID hydrocortisone 1% (Anti-Itch (hydrocortisone)) 1 appl topical BID PRN 30 days linaclotide (Linzess) 290 mcg PO QAM 30 days magnesium oxide 500 mg PO DAILY 30 days nicotine 1 patch transdermal DAILY 28 days oxycodone 10 mg PO Q6H PRN 30 days pantoprazole 40 mg PO BID quetiapine 100 mg PO BEDTIME 90 days quetiapine 400 mg PO BEDTIME 90 days Tobacco use date assessed: 11/21/24 Fall risk assessment: 2 + Falls in past year Last assessed Fall Risk: 11/21/24 Dental Screening Dental Screen Date: 11/21/24 Did you have a dental visit in the last 12 months?: Yes Did you have a dental problem in the last 6 months where you did not have access to dental care?: No Was dental information given to patient?: Patient has dentist HPI HPI Comments History of Present Illness Details The patient is a 68-year-old female presenting for an annual physical examination and management of chronic conditions. The patient reports a history of hematuria, which was noted during a check-up in September, and was associated with a urinary tract infection in October. She is scheduled for a urology appointment on January 08 to further investigate the c ause of the hematuria. The patient has a history of osteoporosis and is currently receiving Prolia injections every six months as part of her treatment regimen. She underwent bone density screening in 2023 and continues to be monitored by a hand turner. The patient also has fibromyalgia, for which she is taking duloxetine and gabapentin. She reports adherence to her medication regimen. The patient has a diagnosis of depression with anxiety, managed with Cymbalta prescribed by her psychiatrist. She is in regular contact with her psychiatrist for ongoing management. The patient has a history of temporomandibular joint disorder, which has been previously addressed. In terms of preventative care, the patient has completed her mammography and Pap smear for the year. She is also up to date with her vaccinations, having received the flu vaccine last month and is due for a tetanus booster today. [facility] Medical History TMJ (temporomandibular joint disorder) [place] Mild recurrent major depression SONALI (generalized anxiety disorder) Polyarthralgia Right hip pain Right shoulder pain Depression with anxiety Mild asthma Chest pain Dyslipidemia Fibromyalgia Surgical History H/O bilateral salpingectomy H/O bilateral oophorectomy History of tooth extraction TMJ derangement History of mammogram History of bunionectomy History of tubal ligation History of laparoscopic cholecystectomy History of lumbar fusion History of section History of esophagogastroduodenoscopy (EGD) Hx of colonoscopy Family History Father Heart failure Mother Heart problem Brother Stomach tumor (benign) Brother Kidney problem Stroke Brother Myocardial infarction Brother Cerebral brain hemorrhage Heart problem Social History Housing: Apartment Alcohol intake: never Patient Tobacco Use Status: Current everyday Tobacco user Tobacco use type: Cigarette Cigarette Packs Per Day: 0.5 Cigarettes Per Day: 10 e-Cigarette/Vaping Use: Never Used Second Hand Smoke Exposure: Yes service: No Current occupational status: unemployed Cognitive needs: No Hearing needs: No Vision needs: Yes (Glasses) Questionnaire PHQ-9 Over the last 2 weeks, how often have you been bothered by any of the following problems? 1. Little interest or pleasure in doing things: not at all 2. Feeling down, depressed, or hopeless: not at all 3. Trouble falling or staying asleep, or sleeping too much: nearly every day 4. Feeling tired or having little energy: several days 5. Poor appetite or overeating: not at all 6. Feeling bad about yourself - or that you are a failure or have let yourself or your family down: not at all 7. Trouble concentrating on things, such as reading the newspaper or watching television: not at all 8. Moving or speaking so slowly that other people could have noticed. Or the opposite - being so fidgety or restless that you have been moving around a lot more than usual: not at all 9. Thoughts that you would be better off or of hurting yourself in some way: not at all Total score: 4 Depression Screening Interpretation: Positive Depression Screening Follow-up: Existing condition, In treatment and Follow-up Visit Requested Depression Screening Done: Yes 99398 - PHQ-9 Billing: Yes Source: Developed by Drs. Chago Baer, Kassandra Alexander, Prashanth Cisse and colleagues, with an educational jhonatan from [employer]. Thrive Questionnaire Date Thrive assessed: 11/21/24 I am a: Patient What is your living situation today?: I have a steady place to live Within the past 12 months, did the food you bought not last and you didn't have the money to get more?: I choose not to answer this question Within the past 12 months, did you worry whether your food would run out before you got money to buy more?: I choose not to answer this question Do you have trouble paying for medicines?: No Do you have trouble getting transportation to medical appointments?: Yes Do you have trouble paying your heating and electricity bill?: I choose not to answer this question Do you have trouble taking care of your child, family member or friend?: I choose not to answer this question Do you have trouble with day-to-day activities such as bathing, preparing meals, shopping, managing finances, etc.?: No Are you currently unemployed and looking for a job?: I choose not to answer this question Are you interested in more education?: I choose not to answer this question Please select the resources that you would like help with: None THRIVE Score: 1 AUDIT C Alcohol Use Questionnaire (AUDIT-C) 1. How often do you have a drink containing alcohol?: Never Total Score: 0 Score Reviewed/Action Taken: No SONALI-7 AMB Questionnaire SONALI-7 Date SONALI - 7 assessed: 11/21/24 Feeling nervous, anxious, or on edge: 0 = Not at all Not being able to stop or control worryin = Not at all Worrying too much about different things: 0 = Not at all Trouble relaxin = Not at all Being so restless that it is hard to sit still: 0 = Not at all Becoming easily annoyed or irritable: 0 = Not at all Feeling afraid as if something awful might happen: 0 = Not at all Total SONALI-7 score (0-4 normal; 5-9 mild; 10-14 moderate; 15-21 severe): 0 Source: Developed by Drs. Chago Baer, Kassandra Alexander, Prashanth Cisse and colleagues, with an educational jhonatan from [employer]. SONALI-7 Assessment Billing SONALI-7 Assessment Tool: SONALI-7 Assessment 80145 Review of Systems Const All systems reviewed & are unremarkable except as noted in HPI and below Card Denies chest pain at rest, Denies chest pain with activity, Denies edema, Denies irregular heart rhythm, Denies claudication, Denies dyspnea, Denies dyspnea on exertion, Denies orthopnea, Denies paroxysmal nocturnal dyspnea and Denies slow heart rate Resp Denies cough, Denies dyspnea and Denies dyspnea on exertion Physical exam (Primary Care) Vital Signs: Last Vital Signs Temp 97.1 F 11/21/24 08:46 Pulse 89 11/21/24 08:46 BP 110/64 11/21/24 08:46 Pulse Ox 97 11/21/24 08:46 Oxygen Delivery Method Room Air 11/21/24 08:46 BMI result Body Mass Index 22.2 Tobacco/Smoking Status: Tobacco use Status Tobacco use date assessed 11/21/24 11/21/24 08:49 Patient Tobacco Use Status Current everyday Tobacco 11/21/24 08:45 Tobacco use type Cigarette 11/21/24 08:45 e-Cigarette/Vaping Use Never Used 11/21/24 08:45 PHQ-9: PHQ-9 Score PHQ-9: Total score 4 11/21/24 09:36 Depression Screening Interpretation: Positive Depression Screening Follow-up: Existing condition, In treatment and Follow-up Visit Requested Thrive Assessment: Date of Thrive Assessment Date Thrive assessed 11/21/24 11/21/24 08:45 HENMT Head: Yes normal to inspection, Yes normocephalic and Yes atraumatic Ears: external ears normal Eyes General: appearance normal, both eyes and all related structures Eyelids: Yes eyelids normal Conjunctivae: conjunctivae normal Neck Neck: Yes normal visual inspection and Yes supple Resp Effort & Inspection: normal respiratory effort Auscultation: clear to auscultation bilaterally Cardio Jugular venous distension: no JVD Rate: regular rate Rhythm: regular rhythm Heart sounds: S1 normal heart sound present and S2 normal heart sound present GI Inspection: Yes normal to inspection Palpation (GI): Soft to palpation and nontender Auscultation: normal bowel sounds Skin General skin exam: no rashes or lesions noted Neuro General: no focal motor deficits Extrem General: Yes full ROM Psych Appearance: grossly normal Results AMB Urinalysis, Automated UA Leukoctes 0 Patricia/uL Last Edit by CY Bunch on 11/21/24 08:58 UA Nitrite Negative Last Edit by CY Bunch on 11/21/24 08:58 UA Urobilinogen 0 mg/dL Last Edit by CY Bunch on 11/21/24 08:58 UA Protein 1 mg/dL Last Edit by CY Bunch on 11/21/24 08:58 UA pH 5.5 Last Edit by CY Bunch on 11/21/24 08:58 UA Blood 1 Ruiz/uL Last Edit by CY Bunch on 11/21/24 08:58 UA Specific [place] 1.030 Last Edit by CY Bunch on 11/21/24 08: 58 UA Ketone Negative Last Edit by CY Bunch on 11/21/24 08:58 UA Bilirubin 0 mg/dL Last Edit by CY Bunch on 11/21/24 08:58 UA Glucose 0 mg/dL Last Edit by CY Bunch on 11/21/24 08:58 Immunizations Boostrix Tdap 2.5 Lf unit-8 mcg-5 Lf/0.5 mL intramuscular syringe Performing Provider: Grazyna Mcgraw MD [place] [facility] [place] [facility] Administered by: [place] LPN on 11/21/24 09:36 Dose Route Admin Location Dispensed Lot Number Expiration Date [facility] Environmental Remediation Consultant 0.5 mL IM Left Deltoid 0.5 mL [id number] 12/07/26 [id number] [employer] Total Dispensed Waste 0.5 mL 0 % VIS Given Date VIS Provided VIS Publication Date 11/21/24 Single Vaccine 20 Eligibility Eligibility Date Funding Source Not [facility] Eligible 11/21/24 Private Results Reviewed Results Reviewed: Laboratory Last Values Urine pH (Auto) 5.5 11/21/24 08:50 Specific [place] (Auto) 1.030 11/21/24 08:50 Urine Protein (Auto) 1 mg/dL 11/21/24 08:50 Glucose (UA)(Auto) 0 mg/dL 11/21/24 08:50 Urine Ketones (Auto) Negative 11/21/24 08:50 Urine Blood (Auto) 1 Ruiz/uL L* 11/21/24 08:50 Urine Nitrite (Auto) Negative 11/21/24 08:50 Urine Bilirubin (Auto) 0 mg/dL 11/21/24 08:50 Urine Urobilinogen (Auto) 0 mg/dL 11/21/24 08:50 Leukocyte Esterase (Auto) 0 Patricia/uL 11/21/24 08:50 Coding Level of Care Code Est Pt Prev Care >65y(50201) Diagnoses Physical exam Z00.00 Mild recurrent major depression F33.0 Additional Codes SONALI-7 Assessment Billing - SONALI-7 Assessment Tool: SONALI-7 Assessment 85927 ([id number]) PHQ-9 - 92797 - PHQ-9 Billing: Yes ([id number]) Time Spent (min) 31 Assessment & Plan Assessment & Plan (1) Physical exam: Code(s): Z00.00 - Encounter for general adult medical examination without abnormal findings Category: Medical (2) Mild recurrent major depression: Code(s): F33.0 - Major depressive disorder, recurrent, mild Category: Medical Plan Plan 1. Physical exam Mammogram for next year. DEXA scan 05/2025. Colonoscopy 05/2027. No need for Pap smear. Vaccines up-to-date. The patient is scheduled for a urology appointment on January 08 to further investigate the cause of the hematuria. 2. . Depression With Anxiety The patient's depression with anxiety is managed with Cymbalta prescribed by her psychiatrist, with whom she is in regular contact. Orders: Orders AMB Urinalysis Automated Today Z13.9 - Encounter for screening, unspecified Vitamin D 25-OH Total Today E55.9 - Vitamin D deficiency, unspecified Comprehensive [place]. Panel Fast Today E78.5 - Hyperlipidemia, unspecified Lipid Panel Today E78.5 - Hyperlipidemia, unspecified TDaP Immunization Today Z23 - Encounter for immunization
[2024-11-21 08:46] VITALS: BP 110/64; PULSE 89; TEMP 36.2; O2SAT 97; BMI 22.2
--- OUTSIDE RECORDS SUMMARY | 2024-11-21 09:04 | XMS_ITS | Encounter Summary ---
Demographics Address [address] [place] [address] Home Phone Mobile Phone Preferred Language es Marital Status Bahai Affiliation Unknown Race Other Race Ethnic Group Unknown Author Organization [employer] Address [address] [place] [address] Care Team Providers Care Clinical Material Handler Name Role Phone Unavailable Primary Care Provider Unavailabl e Reason for Visit * Reason Onset Date Comments re send medication to [facility] 09/08/2023 Encounter Details Date Type Department Care Team ([facility] Contact Info) Description 09/08/2023 Telephone [facility] ADULT D[facility]AL [address] [place] [address] Irvin Dale DDS [address] [place] [address] re [address] medication [address] [facility] Social History Tobacco Use Types Packs/Day [...] be sent to [facility] on [address] in [place]. Prior message request documented. She called in again today because thee medication is not in [facility]. Verified chart and medication is in [facility] pharmacy but she is in so much pain she cannot drive down and she is close to [facility]. She is looking for script to be sent to [facility] [address] [address] [facility] system. * Telephone Encounter - Yessy Roger - 09/08/2023 12:16 PM EDT Please send medication to [facility] documented in this encounter Plan of Treatment Upcoming Encounters Date Type Department Care Team (Late st Contact Info) Description 05/21/2025 9:30 AM EDT Office Visit [facility] [address] [place] [address] Elvira Turk [address] [place] [address] 05/21/2025 10:30 AM EDT Office Visit [facility] [address] [place] [address] Irvin Dale DDS [address] [place] [address] documented as of this encounter Visit Diagnoses Not on filedocumented in this encounter
--- OUTSIDE RECORDS SUMMARY | 2024-11-21 09:04 | XMS_ITS | Patient Health Record ---
Author Organization [facility] Address [address] [place] [address] Care Team Providers Care Sand Cutter Operator Name Role Phone Cristhian Marcos Jr [phone] Reason For Referral No Information Plan Of Treatment No Information
--- OUTSIDE RECORDS SUMMARY | 2024-11-21 09:04 | XMS_ITS | Encounter Summary ---
Author Organization [employer] Address [address] [place] [address] Care Team Providers Care Wood Preserving Plant Laborer Name Role Phone Unavailable Primary Care Provider Unavailabl e Encounter Details Date Type Department Care Team (Latest Contact Info) Description 01/19/2019 Abstract [facility] CONVERSIONS Dental, Provider, DDS Social History Tobacco [...] Description 05/21/2025 9:30 AM EDT Office Visit [facility] ADULT DENTAL [address] [place] [address] Elvira Turk [address] [place] [address] 05/21/2025 10:30 AM EDT Office Visit [facility] ADULT DENTAL [address] [place] [address] Irvin Dale DDS [address] [place] [address] documented as of this encounter Visit Diagnoses Not on filedocumented in this encounter
--- OUTSIDE RECORDS SUMMARY | 2024-11-21 09:04 | XMS_ITS | Clinical Summary ---
Author Organization [employer] Address [address] [place] [address] Care Team Providers Care Revenue Accounting Manager Name Role Phone Unavailable Primary Care [...] NEEDED FOR ANXIETY FOR 30 DAYS Active DULoxetine (Cymbalta) [address] capsule Take 60 mg by mouth 2 times daily. Active gabapentin (Neurontin) 600 MG tablet Take 1 tablet by mouth every 6 (six) hours during the day. Active nitrofurantoin, macrocrystal-mo nohydrate, (Macrobid) 100 MG capsule Take 1 capsule by mouth 2 times daily. Active oxyCODONE (Roxicodone) 10 MG immediate release tablet TAKE 1 TABLET BY MOUTH EVERY 6 HOURS NEEDED FOR PAIN FOR 30 DAYS Active pantoprazole (ProtoNix) 40 MG EC tablet Take 40 mg by mouth 2 times daily. Active QUEtiapine (SEROquel) 400 MG tablet Take 400 mg by mouth at bedtime. 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 06/02/2021 Overview (09/08/2023): Added automatically from request for surgery [id number] Chronic back pain 05/31/2012 Depressive disorder 05/31/2012 Fibromyositis 05/31/2012 Helicobacter pylori gastrointestinal tract infec tion 05/31/2012 Encounters Date Type Department Care Team Description 11/16/2024 10:15 AM EDT Office Visit [facility] ADULT DENTAL [address] [place] [address] Elvira Turk Abfraction (Primary Dx); Missing teeth, acquired; Dental plaque from Last 3 Months Social History Tobacco [...] Pressure 134/72 11/16/2024 9:51 AM EDT Pulse 80 11/23/2023 8:40 AM EDT Temperature - - Respiratory Rate - - Oxygen Saturation - - Inhaled Oxygen Concentration - - Weight - - Height - - Body Mass Index - - Plan of Treatment Upcoming Encounters Date Type Department Care Team (Late st Contact Info) Description 05/21/2025 9:30 AM EDT Office Visit [facility]ULT [facility] [address] [place] [address] Elvira Turk [address] [place] [address] 05/21/2025 10:30 AM EDT Office Visit [facility] ADULT [facility] [address] [place] [address] Irvin Dale DDS [address] [place] [address] Health Maintenance Due Date Last Done Comments CT Colonography 1956 Colonoscopy 1956 Colorectal Cancer Screening 1956 Depression Screening 1956 FIT DNA/Cologuard 1956 FIT 1956 FOBT 1956 Lipid Panel 1956 SDOH Screening 1956 Sigmoidoscopy 1956 Alcohol/Substance Use Screening 1968 Hepatitis C Screening 1974 Mammogram 1996 DTaP/Tdap/Td Vaccines (1 - Tdap) 09/22/2000 09/21/2000 COVID-19 Vaccine ( season) 2025 10/29/2024, 12/14/2022, 02/05/2021, Additional history exists Dental Oral Exam 05/18/2025 11/16/2024, , 09/17/2020, Additional history exists Dental Prophylaxis 05/18/2025 11/16/2024, 0 05/09/2024, 10/22/2023, Additional history exists Tobacco Screening 11/16/2025 11/16/2024 Dental X-Ray: Bitewings 11/17/2025 11/17/19, 09/23/2023, 09/17/2020, Additional history exists Dental X-Ray: Full Mouth 09/08/2026 09/08/2023, 09/08 RSV Patients and Patients Aged 60 years or older (1 - 1-dose 75+ series) 12/31/2031 Hepatitis B Vaccines Completed 02/25/2001, 10/29/2000, 09/28/2000 Pneumococcal Vaccine: 50+ Years Completed 08/02/2022 Zoster Vaccines Completed 12/11/2022, 08/03/2022 Influenza Vaccine Completed 10/29/2024, , 10/04/2022, Additional history exists HIB Vaccines Aged Out [...] Procedure Name Priority Date/Time Associated Diagnosis Comments PERIODIC ORAL EVALUATION - ESTABLISHED PATIENT Routine 11/16/2024 10:15 AM EDT 26,27 INTRAORAL - PERIAPICAL EACH ADDITIONAL RADIOGRAPHIC IMAGE Routine 11/16/2024 10:15 AM EDT Abfraction Missing teeth, acquired Dental plaque TOPICAL APPLICATION OF FLUORIDE VARNISH Routine 11/16/2024 10:15 AM EDT Abfraction Missing teeth, acquired Dental plaque CASE PRESENTATION, DETAILED AND EXTENSIVE TREATMENT PLANNING Routine 11/16/2024 10:15 AM EDT Abfraction Missing teeth, acquired Dental plaque ORAL HYGIENE INSTRUCTIONS Routine 11/16/2024 10:15 AM [...] EDT Abfraction Missing teeth, acquired Dental plaque PANORAMIC RADIOGRAPHIC IMAGE Routine 09/08/2023 9:00 AM EDT from Last 3 Months or Most Recently Relevant to Health Maintenance Insurance [facility] [address] [place] [address] [place] [address]
--- OUTSIDE RECORDS SUMMARY | 2024-11-21 09:04 | XMS_ITS | Encounter Summary ---
Author Organization [employer] Address [address] [place] [address] Care Team Providers Care Parquetry Floor Layer Name Role Phone Unavailable Primary Care Provider Unavailabl e Encounter Details Date Type Department Care Team (Latest Contact Info) Description 09/17/2020 Abstract [facility] CONVERSIONS Dental, Provider, DDS Social History [...] Description 05/21/2025 9:30 AM EDT Office Visit [facility] ADULT DENTAL [address] [place] [address] Elvira Turk [address] [place] [address] 05/21/2025 10:30 AM EDT Office Visit [facility] ADULT [facility] [address] [place] [address] Irvin Dale DDS [address] [place] [address] documented as of this encounter Visit Diagnoses Not on filedocumented in this encounter
== END 2024-11-21 09:36 | disposition home or self-care (01) ==
LOC: HO.HMCH 08:39
PROVIDERS: PCP Internal Medicine; Visit Provider Internal Medicine
DX: Z00.00 Encounter for general adult medical examination without abnormal findings (principal); F33.0 Major depressive disorder, recurrent, mild; Z13.9 Encounter for screening, unspecified; Z23 Encounter for immunization

== ENCOUNTER → 2024-11-21 08:38 | Outpatient (BNVA) | payer OTHER, SELFPAY | PROVIDERS: PCP Internal Medicine; Visit Provider Internal Medicine | DX: Z00.00 Encounter for general adult medical examination without abnormal findings (principal); M81.0 Age-related osteoporosis without current pathological fracture; M79.7 Fibromyalgia; F41.9 Anxiety disorder, unspecified; F33.0 Major depressive disorder, recurrent, mild; E78.5 Hyperlipidemia, unspecified; E55.9 Vitamin D deficiency, unspecified; Z23 Encounter for immunization; Z87.440 Personal history of urinary (tract) infections | CPT/HCPCS: 81003; 90471; 90715; 96127; 99397 ==

== ENCOUNTER 2024-12-06 11:18 | Outpatient (REF) | payer OTHER, SELFPAY | END 2024-12-06 11:19 | disposition home or self-care (01) | LOC: HO.LAB 11:18 | PROVIDERS: PCP Internal Medicine; Visit Provider Obstetrics & Gynecology | DX: R31.29 Other microscopic hematuria (principal); R10.9 Unspecified abdominal pain | CPT/HCPCS: 81002; 87086; 87088; 87186; 99212 ==

== ENCOUNTER 2024-12-06 11:18 | Outpatient (AMB) | payer OTHER, SELFPAY ==
--- NOTE | 2024-12-06 11:39 | A.OFFVIS_ITS ---
Intake Visit Reasons: urine dip Intake Note: Patient states she began with pelvic pain this morning. Flue Gas Analyst: Flue Gas Analyst Present (Juani) Accompanied by: Self / Same As Patient Allergies mold Allergy (Intermediate, Verified 12/06/24 11:40) Hives alendronate sodium Adverse Reaction (Verified 12/06/24 11:40) Chest Pain dust Allergy (Intermediate, Uncoded 11/21/24 09:12) sneeze, watery eyes food sensitivities i.e. banana Allergy (Intermediate, Uncoded 11/21/24 09:12) rash pollens Allergy (Intermediate, Uncoded 11/21/24 09:12) sneeze, watery eyes HPI Comments Details: Presenting for repeat urine dip for microscopic hematuria. Last urine culture grew Klebsiella pneumonia resistant to nitrofurantoin, the patient was prescribed Bactrim, the patient has been having persistent Klebsiella pneumoniae UTI send 05/02 x5 times. In addition the patient is complaining of pelvic pain; the patient is a urology appointment in 01/08/2025 [facility] Medical History TMJ (temporomandibular joint disorder) [place] Mild recurrent major depression SONALI (generalized anxiety disorder) Polyarthralgia Right hip pain Right shoulder pain Depression with anxiety Mild asthma Chest pain Dyslipidemia Fibromyalgia Surgical History H/O bilateral salpingectomy H/O bilateral oophorectomy History of tooth extraction TMJ derangement History of mammogram History of bunionectomy History of tubal ligation History of laparoscopic cholecystectomy History of lumbar fusion History of section History of esophagogastroduodenoscopy (EGD) Hx of colonoscopy Family History Father Heart failure Mother Heart problem Brother Stomach tumor (benign) Brother Kidney problem Stroke Brother Myocardial infarction Brother Cerebral brain hemorrhage Heart problem Social History Housing: Apartment Alcohol intake: never Patient Tobacco Use Status: Current everyday Tobacco user Tobacco use type: Cigarette Cigarette Packs Per Day: 0.5 Cigarettes Per Day: 10 e-Cigarette/Vaping Use: Never Used Second Hand Smoke Exposure: Yes service: No Current occupational status: unemployed Cognitive needs: No Hearing needs: No Vision needs: Yes (Glasses) Review of Systems Const All systems reviewed & are unremarkable except as noted in HPI and below Physical Exam General: Yes no CVA tenderness External Female Exam: normal external appearance and normal appearance of the urethra Speculum Exam - Vagina: normal appearance of the vagina, normal palpation, no lesions and no masses Speculum Exam - Cervix: normal appearance of the cervix, normal palpation, no lesions, no masses and nontender Bimanual exam- vagina & uterus: normal bimanual exam, normal palpation, uterine size normal, normal palpation, uterine shape normal, No Cervical tenderness present and non-tender Back/Spine/Pelvis Back: no CVA tenderness Assessment & Plan Assessment & Plan (1) Microscopic hematuria: Comment: With recurrent UTI Code(s): R31.29 - Other microscopic hematuria Category: Medical Plan: Repeat urine dip showed persistent microscopic hematuria, Will send urine for culture and refer to urology, the patient has appointment at 01/08/25 cover will attempt moving the patient has appointment at urology to an earlier date for further management Instructions given the patient to call or go to emergency room in case of flank pain, fever above 100.4, nausea or vomiting or persistent/worsening of her symptoms. (2) Pelvic pain: Code(s): R10.2 - Pelvic and perineal pain Category: Medical Plan: Pelvic ultrasound ordered. Instructions given the patient is schedule an ultrasound follow-up put within 2-3 weeks Orders: Orders US pelvic and transvaginal Today R10.2 - Pelvic and perineal pain Coding Level of Care Code Est Pt Level 3 (13093) Diagnoses Microscopic hematuria R31.29 Pelvic pain R10.2
--- OUTSIDE RECORDS SUMMARY | 2024-12-06 14:23 | XMS_ITS | Encounter Summary ---
Demographics Address [address] [place] [address] Home Phone Mobile Phone Preferred Language es Marital Status Jew Affiliation Unknown Race Other Race Ethnic Group Unknown Author Organization [employer] Address [address] 7t [place] [address] Care Team Providers Care Bulk Mail Clerk Name Role Phone Unavailable Primary Care Provider Unavailabl e Reason for Visit * Reason Onset Date Comments re send medication to [facility] 09/08/2023 Encounter Details Date Type Department Care Team ([facility] Contact Info) Description 09/08/2023 Telephone [facility] ADULT DENTAL [address] [place] [address] Irvin Dale DDS [address] [place] [address] re send medication to [facility] Social History Tobacco Use Types Packs/Day [...] yesterday requesting medication to be sent to [facility] on [address] in [place]. Prior message request documented. She called in again today because thee medication is not in [facility]. Verified chart and medication is in [facility] pharmacy but she is in so much pain she cannot drive down and she is close to [facility]. She is looking for script [facility] be [facility] [address] [address] [facility]. * Telephone Encounter - Yessy Roger - 09/08/2023 12:16 PM EDT Please send medication to [facility] on [facility] documented in this encounter Plan of Treatment Upcoming Encounters Date Type Department Care Team (Late st Contact Info) Description 05/21/2025 9:30 AM EDT Office Visit [facility] ADULT DENTAL [address] [place] [address] Elvira Turk [address] [place] [address] 05/21/2025 10:30 AM EDT Office Visit [facility] ADULT DENTAL [address] [place] [address] Irvin Dale DDS [address] [place] [address] documented as of this encounter Visit Diagnoses Not on filedocumented in this encounter
--- OUTSIDE RECORDS SUMMARY | 2024-12-06 14:23 | XMS_ITS | Clinical Summary ---
Author Organization [employer] Address [address]t [place] [address] Care Team Providers Care Dental Technology Advisor Name Role Phone Unavailable Primary Care Provider [...] (09/08/2023): Added automatically from request for surgery [id number] Chronic back pain 05/31/2012 Depressive disorder 05/31/2012 Fibromyositis 05/31/2012 Helicobacter pylori gastrointestinal tract infec tion 05/31/2012 Encounters Date Type Department Care Team Description 11/16/2024 10:15 AM EDT Office Visit [facility] ADULT DENTAL [address] [place] [address] Elvira Turk Abfraction (Primary Dx); Missing teeth, [...] Description 05/21/2025 9:30 AM EDT Office Visit [facility] ADULT DENTAL [address] [place] [address] Elvira Turk [address] [place] [address] 05/21/2025 10:30 AM EDT Office Visit [facility] ADULT DENTAL [address] [place] [address] Irvin Dale DDS [address] [place] [address] Health Maintenance Due Date Last Done Comments [...] Most Recently Relevant to Health Maintenance Insurance [facility] [place] [address] [place] [address]
--- OUTSIDE RECORDS SUMMARY | 2024-12-06 14:23 | XMS_ITS | Encounter Summary ---
Author Organization [employer] Address [address] [facility] 7[address] [place] [address] Care Team Providers Care Inspector Packer Glass Container Name Role Phone Unavailable Primary Care Provider Unavailabl e Encounter Details Date Type Department Care Team (Latest Contact Info) Description 09/17/2020 Abstract [facility] CONVERSIONS Dental, Provider, DDS Social History Tobacco [...] 9:30 AM EDT Office Visit [facility] ADULT DENTAL [address] [place] [address] Elvira Turk [address] [place] [address] 05/21/2025 10:30 AM EDT Office Visit [facility] ADULT DENTAL [address] [place] [address] Irvin Dale DDS [address] [place] [address] documented as of this encounter Visit Diagnoses Not on filedocumented in this encounter
--- OUTSIDE RECORDS SUMMARY | 2024-12-06 14:23 | XMS_ITS | Patient Health Record ---
Author Organization [employer] [facility] Address [address] [place] [address] Care Team Providers Care Customer Service Receptionist Name Role Phone Cristhian Marcos Jr Reason For Referral No Information Plan Of Treatment No Information
--- OUTSIDE RECORDS SUMMARY | 2024-12-06 14:23 | XMS_ITS | Encounter Summary ---
Author Organization [employer] Address [address] [facility] 7t [place] [address] Care Team Providers Care Bass Guitar Teacher Name Role Phone Unavailable Primary Care Provider Unavailabl e Encounter Details Date Type Department Care Team (Latest Contact Info) Description 01/19/2019 Abstract [facility] CONVERSIONS Dental, Provider, DDS Social [...] 9:30 AM EDT Office Visit [facility] ADULT DENTAL [address] [place] [address] Elvira Turk [address] [place] [address] 05/21/2025 10:30 AM EDT Office Visit [facility] ADULT DENTAL [address] [place] [address] Irvin Dale DDS [address] [place] [address] documented as of this encounter Visit Diagnoses Not on filedocumented in this encounter
== END 2024-12-06 12:14 | disposition home or self-care (01) ==
LOC: HO.HWS 11:18
PROVIDERS: PCP Internal Medicine; Visit Provider Obstetrics & Gynecology
DX: R31.29 Other microscopic hematuria (principal); R10.20 Pelvic and perineal pain unspecified side; R31.9 Hematuria, unspecified
CPT/HCPCS: 99213

== ENCOUNTER 2024-12-07 11:00 | Outpatient (REF) | payer OTHER, SELFPAY ==
--- NOTE | ~2024-12-07 | US_ITS ---
CLINICAL HISTORY: R10.2 - Pelvic and perineal pain Transabdominal and transvaginal pelvic ultrasound Comparison: 04/10/2024 Findings: Uterus 5.5 x 1.9 x 3.4 cm. Endometrium 2 mm. No significant free fluid. Neither ovary is identified. Impression: No significant abnormality This document has been electronically signed by: Choco Ward MD on 12/07/2024 21:02:02
--- OUTSIDE RECORDS SUMMARY | 2024-12-07 13:46 | XMS_ITS | Clinical Summary ---
Author Organization [employer] Address [address] [facility] [address]t [place] [address] Care Team Providers Care Switch Operator Name Role Phone Unavailable Primary Care [...] (09/08/2023): Added automatically from request for surgery [id number] Chronic back pain 05/31/2012 Depressive disorder 05/31/2012 Fibromyositis 05/31/2012 Helicobacter pylori gastrointestinal tract infec tion 05/31/2012 Encounters Date Type Department Care Team Description 11/16/2024 10:15 AM EDT Office Visit [facility] ADULT DENTAL [address] [place] [address] Elvira Turk Abfraction (Primary Dx); Missing teeth, [...] 05/21/2025 9:30 AM EDT Office Visit [facility] ADULT DENTAL [address] [place] [address] Elvira Turk [address] [place] [address] 05/21/2025 10:30 AM EDT Office Visit [facility] ADULT DENTAL [address] [place] [address] Irvin Dale DDS [address] [place] [address] Health Maintenance Due Date Last Done Comments [...] Most Recently Relevant to Health Maintenance Insurance [facility] [address] [place] [address]
--- OUTSIDE RECORDS SUMMARY | 2024-12-07 13:46 | XMS_ITS | Encounter Summary ---
Author Organization [employer] Address [address] [facility] [address]t [place] [address] Care Team Providers Care Pancake Professional Name Role Phone Unavailable Primary Care Provider Unavailabl e Encounter Details Date Type Department Care Team (Latest Contact Info) Description 01/19/2019 Abstract [facility] CONVERSIONS Dental, Provider, DDS Social [...] Description 05/21/2025 9:30 AM EDT Office Visit [facility] ADULT DENTAL [address] [place] [address] Elvira Turk [address] [place] [address] 05/21/2025 10:30 AM EDT Office Visit [facility] ADULT DENTAL [address] [place] [address] Irvin Dale DDS [address] [place] [address] documented as of this encounter Visit Diagnoses Not on filedocumented in this encounter
--- OUTSIDE RECORDS SUMMARY | 2024-12-07 13:46 | XMS_ITS | Encounter Summary ---
Demographics Address [address] [place] [address] Home Phone Mobile Phone Preferred Language es Marital Status Scientology Affiliation Unknown Race Other Race Ethnic Group Unknown Author Organization [employer] Address [address]t [place] [address] Care Team Providers Care First Line Production Supervisor Name Role Phone Unavailable Primary Care Provider Unavailabl e Reason for Visit * Reason Onset Date Comments re send medication to [facility] 09/08/2023 Encounter Details Date Type Department Care Team ([facility] Contact Info) Description 09/08/2023 Telephone [facility] ADULT DENTAL [address] [place] [address] Irvin Dale DDS [address] [place] [address] re send medication to [facility] Social History Tobacco Use Types Packs/Day [...] yesterday requesting medication to be sent to [facility] on [address] in [place]. Prior message request documented. She called in again today because thee medication is not in [facility]. Verified chart and medication is in [facility] pharmacy but she is in so much pain she cannot drive down and she is close to [facility]. She is looking for script to be sent [facility] [address] [address] [facility]. * Telephone Encounter - Yessy Roger - 09/08/2023 12:16 PM EDT Please send medication to [facility] on [facility] documented in this encounter Plan of Treatment Upcoming Encounters Date Type Department Care Team (Late st Contact Info) Description 05/21/2025 9:30 AM EDT Office Visit [facility] ADULT DENTAL [address] [place] [address] Elvira Turk [address] [place] [address] 05/21/2025 10:30 AM EDT Office Visit [facility] ADULT DENTAL [address] [place] [address] Irvin Dale DDS [address] [place] [address] documented as of this encounter Visit Diagnoses Not on filedocumented in this encounter
--- OUTSIDE RECORDS SUMMARY | 2024-12-07 13:46 | XMS_ITS | Encounter Summary ---
Author Organization [employer] Address [address] [facility] [address]t [place] [address] Care Team Providers Care Caustic Liquor Maker Name Role Phone Unavailable Primary Care Provider Unavailabl e Encounter Details Date Type Department Care Team (Latest Contact Info) Description 09/17/2020 Abstract [facility] CONVERSIONS Dental, Provider, DDS Social History [...] [facility] ADULT DENTAL [address] [place] [address] Elvira Turk [address] [place] [address] 05/21/2025 10:30 AM EDT Office Visit [facility] ADULT DENTAL [address] [place] [address] Irvin Dale DDS [address] [place] [address] documented as of this encounter Visit Diagnoses Not on filedocumented in this encounter
--- OUTSIDE RECORDS SUMMARY | 2024-12-07 13:46 | XMS_ITS | Patient Health Record ---
Author Organization [employer] [facility] Address [address] [place] [address] Care Team Providers Care Emt I/99 Name Role Phone Cristhian Marcos Jr Reason For Referral No Information Plan Of Treatment No Information
== END 2024-12-07 11:01 | disposition home or self-care (01) ==
LOC: HO.US 11:00
PROVIDERS: PCP Internal Medicine; Visit Provider Obstetrics & Gynecology
DX: R10.23 Pelvic and perineal pain bilateral (principal)
CPT/HCPCS: 76830; 76856

== ENCOUNTER → 2024-12-07 11:03 | Outpatient (BNV) | payer OTHER, SELFPAY | PROVIDERS: PCP Internal Medicine; Visit Provider Radiology Diagnostic Radiology | DX: R10.23 Pelvic and perineal pain bilateral (principal) | CPT/HCPCS: 76830; 76856 ==

== ENCOUNTER 2024-12-23 07:55 | Outpatient (REF) | payer OTHER, SELFPAY ==
--- OUTSIDE RECORDS SUMMARY | 2024-12-23 08:00 | XMS_ITS | Encounter Summary ---
Demographics Address [address] [place] [address] Home Phone Mobile Phone Preferred Language es Marital Status Amish Affiliation Unknown Race Other Race Ethnic Group Unknown Author Organization [employer] Address [address] [facility] [address]t [place] [address] Care Team Providers Care Windows Server Specialist Name Role Phone Unavailable Primary Care Provider Unavailabl e Reason for Visit * Reason Onset Date Comments re send medication to [facility] 09/08/2023 Encounter Details Date Type Department Care Team ([facility] Contact Info) Description 09/08/2023 Telephone [facility] ADULT DENTAL [address] [place] [address] Irvin Dale DDS [address] [place] [address] re send medication to [facility] Social History Tobacco Use Types Packs/Day Years [...] yesterday requesting medication to be sent to [facility] on [address] in [place]. Prior message request documented. She called in again today because thee medication is not in [facility]. Verified chart and medication is in [facility] pharmacy but she is in so much pain she cannot drive down and she is close to [facility]. She is looking for script to be sent [facility] [address] [facility] [address] [facility]. * Telephone Encounter - Yessy Roger - 09/08/2023 12:16 PM EDT Please send medication to [facility] documented in this encounter Plan of Treatment Upcoming Encounters Date Type Department Care Team (Late st Contact Info) Description 05/21/2025 9:30 AM EDT Office Visit [facility] ADULT DENTAL [address] [place] [address] Elvira Turk [address] [place] [address] 05/21/2025 10:30 AM EDT Office Visit [facility] ADULT DENTAL [address] [place] [address] Irvin Dale DDS [address] [place] [address] documented as of this encounter Visit Diagnoses Not on filedocumented in this encounter
--- OUTSIDE RECORDS SUMMARY | 2024-12-23 08:00 | XMS_ITS | Encounter Summary ---
Author Organization [employer] Address [address]t [place] [address] Care Team Providers Care Brake Repair Supervisor Name Role Phone Unavailable Primary Care Provider Unavailabl e Encounter Details Date Type Department Care Team (Latest Contact Info) Description 01/19/2019 Abstract [facility] CONVERSIONS Dental, Provider, DDS Social [...] 9:30 AM EDT Office Visit [facility] ADULT DENTAL [address] [place] [address] Elvira Turk [address] [place] [address] 05/21/2025 10:30 AM EDT Office Visit [facility] ADULT DENTAL [address] [place] [address] Irvin Dale DDS [address] [place] [address] documented as of this encounter Visit Diagnoses Not on filedocumented in this encounter
--- OUTSIDE RECORDS SUMMARY | 2024-12-23 08:00 | XMS_ITS | Encounter Summary ---
Author Organization [employer] Address [address] [facility] 7t [place] [address] Care Team Providers Care Dietitian Consultant Name Role Phone Unavailable Primary Care Provider Unavailabl e Encounter Details Date Type Department Care Team (Latest Contact Info) Description 09/17/2020 Abstract [facility] CONVERSIONS Dental, Provider, DDS Social History [...] Description 05/21/2025 9:30 AM EDT Office Visit [facility] ADULT DENTAL [address] [place] [address] Elvira Turk [address] [place] [address] 05/21/2025 10:30 AM EDT Office Visit [facility] ADULT DENTAL [address] [place] [address] Irvin Dale DDS [address] [place] [address] documented as of this encounter Visit Diagnoses Not on filedocumented in this encounter
--- OUTSIDE RECORDS SUMMARY | 2024-12-23 08:00 | XMS_ITS | Clinical Summary ---
Author Organization [employer] Address [address] [facility] [address] [place] [address] Care Team Providers Care Department Specialist Name Role Phone Unavailable Primary Care [...] (09/08/2023): Added automatically from request for surgery [id number] Chronic back pain 05/31/2012 Depressive disorder 05/31/2012 Fibromyositis 05/31/2012 Helicobacter pylori gastrointestinal tract infec tion 05/31/2012 Encounters Date Type Department Care Team Description 11/16/2024 10:15 AM EDT Office Visit [facility] ADULT DENTAL [address] [place] [address] Elvira Turk Abfraction (Primary Dx); Missing teeth, [...] Description 05/21/2025 9:30 AM EDT Office Visit [facility] ADULT DENTAL [address] [place] [address] Elvira Turk [address] [place] [address] 05/21/2025 10:30 AM EDT Office Visit [facility] ADULT DENTAL [address] [place] [address] Irvin Dale DDS [address] [place] [address] Health Maintenance Due Date Last Done Comments [...] Most Recently Relevant to Health Maintenance Insurance [facility]
[2024-12-23 09:43] LABS: Alanine Aminotransferase 19 U/L (0-31); Albumin Level 4.2 g/dL (3.5-5.0); Alkaline Phosphatase 57 U/L (39-117); Anion Gap 15 (12-20); Aspartate Amino Transferase 23 U/L (5-31); Blood Urea Nitrogen 14 mg/dL (9-16); Calcium 9.7 mg/dL (8.4-10.2); Carbon Dioxide 29 mmol/L (22-29); Chloride 104 mmol/L (96-108); Estimated Glomerular Filt Rate > 60; Potassium 3.7 mmol/L (3.3-5.1); Sodium 144 mmol/L (135-145); Total Protein 6.7 g/dL (6.5-8.0)
== END 2024-12-23 07:56 | disposition home or self-care (01) ==
LOC: HO.LAB 07:55
PROVIDERS: PCP Internal Medicine; Visit Provider Student in an Organized Health Care Education/Training Program
DX: M85.89 Other specified disorders of bone density and structure, multiple sites (principal); E55.9 Vitamin D deficiency, unspecified
CPT/HCPCS: 36415; 80053; 82306

== ENCOUNTER 2024-12-25 09:32 | Outpatient (AMB) | payer OTHER, SELFPAY ==
--- NOTE | 2024-12-25 10:03 | A.OFFVIS_ITS ---
Intake Visit Reasons: Microhematuria/Frequency/UTI Intake Note: New Patient Is Present for Microhematuria/Recurrent UTI/Frequency Urology Med: None Antibiotic Allergy: None Blood Thinner: None Patient reports she recently had a UTI, Was treated with Macrobid still had symptoms and was treated with another Antibiotic. Patient states that when she has an active UTI she has burning with urination, Frequency and Different odor of urine Patient's CARPENTER ASSISTANT Dr. Marks has been treating her UTI and has referred her to U rology due to frequent UTI's PVR: 18ml Allergies mold Allergy (Intermediate, Verified 12/25/24 11:05) Hives alendronate sodium Adverse Reaction (Verified 12/25/24 11:05) Chest Pain dust Allergy (Intermediate, Uncoded 12/25/24 11:05) sneeze, watery eyes food sensitivities i.e. banana Allergy (Intermediate, Uncoded 12/25/24 11:05) rash pollens Allergy (Intermediate, Uncoded 12/25/24 11:05) sneeze, watery eyes Medication List - Last Reconciled 12/25/24 by MELISSA Ortiz- albuterol sulfate 90 mcg/actuation 2 puffs inhalation Q6-8H 30 days alprazolam 0.5 mg PO BID PRN 30 days bisacodyl (Dulcolax (bisacodyl)) 10 mg (2 x 5 mg) PO BEDTIME calcium carbonate-vitamin D3 600 mg-12.5 mcg (500 unit) (Calcium with Vit D3) 1 cap PO .once a day 90 days cyclobenzaprine 5 mg PO BID PRN 30 days denosumab (Prolia) 60 mg subcut [id number] duloxetine 60 mg PO BID estradiol 0.01%(0.1mg/gram) Apply a pea-sized amount to urethra daily x1 month and then 3 times per week thereafter 90 days gabapentin 600 mg PO TID hydrocortisone 1% (Anti-Itch (hydrocortisone)) 1 appl topical BID PRN 30 days linaclotide (Linzess) 290 mcg PO QAM 30 days magnesium oxide 500 mg PO DAILY 30 days nicotine 1 patch transdermal DAILY 28 days oxycodone 10 mg PO Q6H PRN 30 days pantoprazole 40 mg PO BID quetiapine 100 mg PO BEDTIME 90 days quetiapine 400 mg PO BEDTIME 90 days sulfamethoxazole-trimethoprim 800-160 mg (Bactrim DS) 1 tab PO BID 10 days HPI Comments Details: Grazyna is a very pleasant 68-year-old female patient of Dr. Ivy. She has a past medical history of nausea, TMJ, depression, anxiety, and dyslipidemia. She presents to the office today as a new patient for recurrent urinary tract infections. In discussion with the patient today she reports she had been following up with bobtail driver for ovarian cyst and previous vaginal bleeding she had been experiencing at which time she was noted to have multiple urinary tract infections and recommendations were made for urology referral for further assessment evaluation. In review of patient's chart it appears urine cultures are as follows: 11/30 E coli, 06/01 E coli, 08/31 E coli, 05/02 Klebsiella pneumoniae, 07/02 Klebsiella pneumoniae, 10/02 Klebsiella pneumoniae, 11/02 Klebsiella pneumoniae, 11/02 Klebsiella pneumoniae, 12/02 Klebsiella pneumoniae. In office urinalysis results reviewed with the patient today. Trace microscopic hematuria negative leukocytes negative nitrates. PVR 18 mL. She currently reports foul-smelling urine and dysuria. She reports having recently completed antibiotic therapy (macrobid) and continues to have UTI like symptoms. We did discussed at length potential causes of recurrent urinary tract infections as well as microscopic hematuria. When asked she does report a longstanding history of nicotine dependence. She reports smoking approximately half a pack of cigarettes for over 40 years. I discussed reasons for blood in the urine may include but are not limited to kidney stones, cancer in the urinary tract, kidney stone disease or inflammatory conditions of the urinary tract. I have discussed workup to include cystoscopy evaluation. She denies flank pain, fever, and or chills. When asked she does report a history of constipation. We did discussed correlation of constipation with recurrent urinary tract infections. She does discuss her history of chronic lower back pain. All questions were answered. She otherwise offers no other issues or concerns at this time. [facility] Medical History TMJ (temporomandibular joint disorder) Lockjaw Mild recurrent major depression SONALI (generalized anxiety disorder) Polyarthralgia Right hip pain Right shoulder pain Depression with anxiety Mild asthma Chest pain Dyslipidemia Fibromyalgia Surgical History H/O bilateral salpingectomy H/O bilateral oophorectomy History of tooth extraction TMJ derangement History of mammogram History of bunionectomy History of tubal ligation History of laparoscopic cholecystectomy History of lumbar fusion History of section History of esophagogastroduodenoscopy (EGD) Hx of colonoscopy Family History Father Heart failure Mother Heart problem Brother Stomach tumor (benign) Brother Kidney problem Stroke Brother Myocardial infarction Brother Cerebral brain hemorrhage Heart problem Social History Housing: Apartment Alcohol intake: never Patient Tobacco Use Status: Current everyday Tobacco user Tobacco use type: Cigarette Cigarette Packs Per Day: 0.5 Cigarettes Per Day: 10 e-Cigarette/Vaping Use: Never Used Second Hand Smoke Exposure: Yes service: No Current occupational status: unemployed Cognitive needs: No Hearing needs: No Vision needs: Yes (Glasses) Review of Systems Const All systems reviewed & are unremarkable except as noted in HPI and below Physical Exam Const General: cooperative, healthy appearing, comfortable, no acute distress, well developed, alert and awake Orientation/consciousness: patient oriented x3 Limitations: no limitations HEENT Head: Yes normal to inspection, Yes normocephalic and Yes atraumatic Ears: hearing grossly normal bilaterally Eyes General: appearance normal, both eyes and all related structures Neck Neck: Yes normal visual inspection and Yes trachea midline Chest Chest palpation & inspection: normal inspection of the chest Resp Effort & Inspection: normal respiratory effort and able to speak in complete sentences Cardio Rate: regular rate GI Inspection: Yes normal to inspection General: Yes no CVA tenderness Back/Spine/Pelvis Back: no CVA tenderness Skin General skin exam: no rashes or lesions noted Neuro General: patient oriented x3 Extrem General: Yes normal to inspection Psych Appearance: grossly normal and well kempt Mental Status: mental status grossly normal Speech and movement: Normal speech and movement present and Clear speech present Affect: normal affect Attitude: cooperative Thought process: Normal thought process present Thought content: Normal thought content present Insight: Fair insight present (Psych) Judgement: Fair judgement present (Psych) Office Procedures Post Void Residual Post Residual Void Post Void Residual (PVR): 18 [id number]-Aoio Void Residual by ultrasound Results AMB Urinalysis, Automated UA Leukoctes 0 Patricia/uL Last Edit by Maryana Jennings, RMA on 12/25/24 10:14 UA Nitrite Negative Last Edit by Maryana Jennings, RMA on 12/25/24 10:14 UA Urobilinogen 0.2 mg/dL Last Edit by Maryana Jennings, RMA on 12/25/24 10:1 4 UA Protein 0 mg/dL Last Edit by Maryana Jennings, RMA on 12/25/24 10:14 UA pH 6.0 Last Edit by Maryana Jennings, RMA on 12/25/24 10:14 UA Blood 10 Ruiz/uL Last Edit by Maryana Jennings, RMA on 12/25/24 10:14 UA Specific [place] 1.015 Last Edit by Maryana Jennings, RMA on 12/25/24 10: 14 UA Ketone Negative Last Edit by Maryana Jennings, RMA on 12/25/24 10:14 UA Bilirubin 0 mg/dL Last Edit by Maryana Jennings, RMA on 12/25/24 10:14 UA Glucose 0 mg/dL Last Edit by Maryana Jennings, RMA on 12/25/24 10:14 Results Reviewed Results Reviewed: Laboratory Last Values Urine pH (Auto) 6.0 12/25/24 10:12 Specific [place] (Auto) 1.015 12/25/24 10:12 Urine Protein (Auto) 0 mg/dL 12/25/24 10:12 Glucose (UA)(Auto) 0 mg/dL 12/25/24 10:12 Urine Ketones (Auto) Negative 12/25/24 10:12 Urine Blood (Auto) 10 Ruiz/uL 12/25/24 10:12 Urine Nitrite (Auto) Negative 12/25/24 10:12 Urine Bilirubin (Auto) 0 mg/dL 12/25/24 10:12 Urine Urobilinogen (Auto) 0.2 mg/dL 12/25/24 10:12 Leukocyte Esterase (Auto) 0 Patricia/uL 12/25/24 10:12 Assessment & Plan Assessment & Plan (1) Microscopic hematuria: Comment: With recurrent UTI Code(s): R31.29 - Other microscopic hematuria Category: Medical (2) Dysuria: Code(s): R30.0 - Dysuria Category: Medical (3) Recurrent urinary tract infection: Code(s): N39.0 - Urinary tract infection, site not specified Category: Medical (4) UTI (urinary tract infection): Code(s): N39.0 - Urinary tract infection, site not specified Category: Medical Plan In office urinalysis results reviewed with the patient today; will send for urine culture and urine cytology PVR 18 mL. Start Estrace cream as discussed and prescribed. Will obtain CT urogram for further assessment evaluation. BUN and creatinine ordered for imaging. We did discussed at length potential causes of recurrent urinary tract infections as well as microscopic hematuria in the setting of nicotine dependence. We did discuss importance of limiting/quitting nicotine dependence for overall health and well-being We did discussed further treatment options and risks and benefits of these treatment options. All questions were answered. Discussed UTI prevention with D mannose supplement, vitamin-C, increasing fluid intake, behavioral therapy with timed voiding, perineal hygiene and postcoital voiding, and management of constipation with stool softeners and increased fiber intake. Follow-up next available in office cystoscopy with imaging and labs to be completed prior; or sooner with any issues, concerns, and or questions. Orders: Orders AMB Post Void Residual by ultrasound Today R35.0 - Frequency of micturition CT urogram Today R31.0 - Gross hematuria Urine Culture Today N39.0 - Urinary tract infection, site not specified AMB Urinalysis Automated Today Z13.9 - Encounter for screening, unspecified Blood Urea Nitrogen Today R39.15 - Urgency of urination Creatinine Today R39.15 - Urgency of urination Urine Cytology Today F17.200 - Nicotine dependence, unspecified, uncomplicated, N39.0 - Urinary tract infection, site not specified, R31.29 - Other microscopic hematuria Medications: New sulfamethoxazole-trimethoprim 800-160 mg (Bactrim DS) 1 tab PO BID 20 tabs 0RF 10 days N39.0 - Urinary tract infection, site not specified estradiol 0.01%(0.1mg/gram) Apply a pea-sized amount to urethra daily x1 month and then 3 times per week thereafter 42.5 grams 2RF 90 days N39.0 - Urinary tract infection, site not specified Discontinued nitrofurantoin monohyd/m-cryst 100 mg (Macrobid) Discontinued Reason: Patient Completed Course 100 mg PO BID 5 days 10 caps 0RF Patient Instructions: The patient had an opportunity to ask questions regarding the treatment plan. All questions were answered. Physical exam, labs, and imaging were discussed and reviewed in detail. As well as risks, benefits, and discussion of treatment choices. No major barriers to understanding were identified. The patient e xpressed understanding and agreement with the above treatment plan. The patient was made aware they should contact our office by phone for worsening of their current condition, the appearance of new symptoms, or with any questions or concerns. Compliance is encouraged with any medications and follow up testing that is ordered. It is a privilege to be allowed the opportunity to participate in? your urological care.? Again, if you have any questions or concerns If you have any questions or concerns please do not hesitate to contact me. The office is [phone]. This note is constructed using voice recognition software. While every effort has been made to ensure accuracy human resources partner errors may have been included. Yours sincerely, SULEIMAN Ortiz Coding Level of Care Code New Pt Level 4 (47520) Diagnoses Microscopic hematuria R31.29 Dysuria R30.0 Recurrent urinary tract infection N39.0 UTI (urinary tract infection) N39.0 CPT Codes Post Residual Void - PVR CPT Code: 67118-Mswd Void Residual by ultrasound ([id number])
== END 2024-12-25 10:55 | disposition home or self-care (01) ==
LOC: HO.HUSH 09:33
PROVIDERS: PCP Internal Medicine; Visit Provider Nurse Practitioner Family
DX: R31.29 Other microscopic hematuria (principal); R30.0 Dysuria; N39.0 Urinary tract infection, site not specified; Z13.9 Encounter for screening, unspecified
CPT/HCPCS: 99204

== ENCOUNTER 2024-12-25 09:32 | Outpatient (REF) | payer OTHER, SELFPAY ==
--- OUTSIDE RECORDS SUMMARY | 2024-12-26 07:29 | XMS_ITS | Encounter Summary ---
Author Organization [employer] Address [address] [place] [address] Care Team Providers Care Paste Up Artist Apprentice Name Role Phone Unavailable Primary Care Provider [...] 9:30 AM EDT Office Visit [facility] ADULT DENTAL [address] [place] [address] Elvira Turk [address] [place] [address] 05/21/2025 10:30 AM EDT Office Visit [facility] ADULT DENTAL [address] [place] [address] Irvin Dale DDS [address] [place] [address] documented as of this encounter Visit Diagnoses Not on filedocumented in this encounter
--- OUTSIDE RECORDS SUMMARY | 2024-12-26 07:31 | XMS_ITS | Encounter Summary ---
Demographics Address [address] [place] [address] Home Phone Mobile Phone Preferred Language es Marital Status Zoroastrianism Affiliation Unknown Race Other Race Ethnic Group Unknown Author Organization [employer] Address [address] [place] [address] Care Team Providers Care Maintenance Parts Technician Name Role Phone Unavailable Primary Care Provider Unavailabl e Reason for Visit * Reason Onset Date Comments re send medication to [facility] 09/08/2023 Encounter Details Date Type Department Care Team ([facility] Contact Info) Description 09/08/2023 Telephone [facility] ADULT DENTAL [address] [place] [address] Irvin Dale DDS [address] [place] [address] re send medication to [facility] Social History Tobacco Use Types [...] yesterday requesting medication to be sent to [facility] on [address] in [place]. Prior message request documented. She called in again today because thee medication is not in [facility]. Verified chart and medication is in [facility] pharmacy but she is in so much pain she cannot drive down and she is close to [facility]. She is looking for script to be sent to [facility] [address] P harmacy [facility] [address] [facility] system. * Telephone Encounter - Yessy Roger - 09/08/2023 12:16 PM EDT Please send medication to [facility] on [facility] documented in this encounter Plan of Treatment Upcoming Encounters Date Type Department Care Team (Late st Contact Info) Description 05/21/2025 9:30 AM EDT Office Visit [facility] ADULT DENTAL [address] [place] [address] Elvira Turk [address] [place] [address] 05/21/2025 10:30 AM EDT Office Visit [facility] ADULT DENTAL [address] [place] [address] Irvin Dale DDS [address] [place] [address] documented as of this encounter Visit Diagnoses Not on filedocumented in this encounter
--- OUTSIDE RECORDS SUMMARY | 2024-12-26 07:31 | XMS_ITS | Encounter Summary ---
Author Organization [employer] Address [address] [facility] [facility] [address]t [place] [address] Care Team Providers Care Internal Audit Manager Name Role Phone Unavailable Primary Care Provider Unavailabl e Encounter Details Date Type Department Care Team (Latest Contact Info) Description 09/17/[address] [facility] CONVERSIONS Dental, Provider, DDS Social History [...] 9:30 AM EDT Office Visit [facility] ADULT DENTAL [address] [place] [address] Elvira Turk [address] [place] [address] 05/21/2025 10:30 AM EDT Office Visit [facility] ADULT DENTAL [address] [place] [address] Irvin Dale DDS [address] [place] [address] documented as of this encounter Visit Diagnoses Not on filedocumented in this encounter
--- OUTSIDE RECORDS SUMMARY | 2024-12-26 07:32 | XMS_ITS | Clinical Summary ---
Author Organization [employer] Address [address] [facility] [address] [place] [address] Care Team Providers Care Bar Captain Name Role Phone Unavailable Primary Care Provider [...] (09/08/2023): Added automatically from request for surgery [id number] Chronic back pain 05/31/2012 Depressive disorder 05/31/2012 Fibromyositis 05/31/2012 Helicobacter pylori gastrointestinal tract infec tion 05/31/2012 Encounters Date Type Department Care Team Description 11/16/2024 10:15 AM EDT Office Visit [facility] ADULT DENTAL [address] [place] [address] Elvira Turk Abfraction (Primary Dx); Missing teeth, [...] Description 05/21/2025 9:30 AM EDT Office Visit [facility] ADULT DENTAL [address] [place] [address] Elvira Turk [address] [place] [address] 05/21/2025 10:30 AM EDT Office Visit [facility] ADULT DENTAL [address] [place] [address] Irvin Dale DDS [address] [place] [address] Health Maintenance Due Date Last Done Comments [...] Most Recently Relevant to Health Maintenance Insurance [facility]
--- OUTSIDE RECORDS SUMMARY | 2024-12-26 07:32 | XMS_ITS | Patient Health Record ---
Author Organization [facility] [facility] [facility] Address [address] [place] [address] Care Team Providers Care Stocklayer Name Role Phone Cristhian Marcos Jr [phone] Reason For Referral No Information Plan Of Treatment No Information
== END 2024-12-25 09:33 | disposition home or self-care (01) ==
LOC: HO.LNP 09:32
PROVIDERS: PCP Internal Medicine; Visit Provider Nurse Practitioner Family
DX: N39.0 Urinary tract infection, site not specified (principal); R35.0 Frequency of micturition; R31.29 Other microscopic hematuria; F17.200 Nicotine dependence, unspecified, uncomplicated; R30.0 Dysuria; Z13.89 Encounter for screening for other disorder
CPT/HCPCS: 51798; 81003; 87086; 87088; 87186; 88112; 99202

== ENCOUNTER 2024-12-28 11:44 | Outpatient (REF) | payer OTHER, SELFPAY ==
[2024-12-28 13:20] LABS: Blood Urea Nitrogen 11 mg/dL (9-16); Estimated Glomerular Filt Rate > 60
== END 2024-12-28 11:45 | disposition home or self-care (01) ==
LOC: HO.LAB 11:44
PROVIDERS: Absent Provider Nurse Practitioner Family; PCP Internal Medicine; Visit Provider Obstetrics & Gynecology
DX: R31.29 Other microscopic hematuria (principal); R10.20 Pelvic and perineal pain unspecified side; R39.15 Urgency of urination
CPT/HCPCS: 36415; 82565; 84520; 99212

== ENCOUNTER 2024-12-28 11:44 | Outpatient (AMB) | payer OTHER, SELFPAY ==
[2024-12-28 11:48] VITALS: BP 118/74; BMI 22.1
--- NOTE | 2024-12-28 11:48 | MHC.OFFVIS ---
Vital Signs 12/28/24 11:48 Height 5 ft 1 in Weight 117 lb BMI 22.1 BP 118/74 Intake Visit Reasons: U/S / Urine Followup Plumbing Designer Required: No Information Interpreted: non-clinical & clinical Accompanied by: Self / Same As Patient Allergies mold Allergy (Intermediate, Verified 12/28/24 11:53) Hives alendronate sodium Adverse Reaction (Verified 12/28/24 11:53) Chest Pain dust Allergy (Intermediate, Uncoded 12/28/24 11:53) sneeze, watery eyes food sensitivities i.e. banana Allergy (Intermediate, Uncoded 12/28/24 11:53) rash pollens Allergy (Intermediate, Uncoded 12/28/24 11:53) sneeze, watery eyes HPI Comments Details: Presenting for ultrasound with the patient was seen by urology for microscopic hematuria Pelvic ultrasound done recently showed the following: Findings: Uterus 5.5 x 1.9 x 3.4 cm. Endometrium 2 mm. No significant free fluid. Neither ovary is identified. Impression: No significant abnormality [facility] Medical History TMJ (temporomandibular joint disorder) Lockjaw Mild recurrent major depression SONALI (generalized anxiety disorder) Polyarthralgia Right hip pain Right shoulder pain Depression with anxiety Mild asthma Chest pain Dyslipidemia Fibromyalgia Surgical History H/O bilateral salpingectomy H/O bilateral oophorectomy History of tooth extraction TMJ derangement History of mammogram History of bunionectomy History of tubal ligation History of laparoscopic cholecystectomy History of lumbar fusion History of section History of esophagogastroduodenoscopy (EGD) Hx of colonoscopy Family History Father Heart failure Mother Heart problem Brother Stomach tumor (benign) Brother Kidney problem Stroke Brother Myocardial infarction Brother Cerebral brain hemorrhage Heart problem Social History Housing: Apartment Alcohol intake: never Patient Tobacco Use Status: Current everyday Tobacco user Tobacco use type: Cigarette Cigarette Packs Per Day: 0.5 Cigarettes Per Day: 10 e-Cigarette/Vaping Use: Never Used Second Hand Smoke Exposure: Yes service: No Current occupational status: unemployed Cognitive needs: No Hearing needs: No Vision needs: Yes (Glasses) Review of Systems Const All systems reviewed & are unremarkable except as noted in HPI and below Reports as per HPI and Reports no additional complaints GI Reports no additional complaints Reports no additional complaints Physical Exam Vital Signs: Last Vital Signs BP 118/74 12/28/24 11:48 BMI result Body Mass Index 22.1 Assessment & Plan Assessment & Plan (1) Pelvic pain: Code(s): R10.2 - Pelvic and perineal pain Category: Medical Plan: Discussed with the patient the results of the workup done including including urine dip, and a negative pelvic ultrasound. Differential diagnosis of porcelain turner causes that have not be ruled out yet include but not limited to bladder causes, pelvic adhesions , or others. Recommended for the patient to see her PCP for further workup for non porcelain turner causes; if the all the results are negative and the patient's pelvic pain is persistent, instructions given to patient to call back for further testing. Meanwhile, instructions were given the patient to go to emergency room or call in case of fever above 100.4, heavy vaginal bleeding, persistence or worsening of her pelvic pain. All questions answered, the patient verbalized understanding. (2) Microscopic hematuria: Comment: With recurrent UTI Code(s): R31.29 - Other microscopic hematuria Category: Medical Plan: Will defer the management the urology since the patient has been seen by Urology Coding Level of Care Code Est Pt Level 3 (29320) Diagnoses Pelvic pain R10.2 Microscopic hematuria R31.29
== END 2024-12-28 13:28 | disposition home or self-care (01) ==
PROVIDERS: PCP Internal Medicine; Visit Provider Obstetrics & Gynecology
DX: R10.20 Pelvic and perineal pain unspecified side (principal); R31.29 Other microscopic hematuria
CPT/HCPCS: 99213

== ENCOUNTER 2025-01-02 10:04 | Outpatient (REF) | payer OTHER, SELFPAY ==
--- NOTE | ~2025-01-02 | CT_ITS ---
EXAMINATION: CT ABDOMEN AND PELVIS WITHOUT AND WITH CONTRAST CLINICAL INFORMATION: R31.0 - Gross hematuria COMPARISON: None available. TECHNIQUE: Noncontrast CT of the abdomen and pelvis is performed followed by split bolus contrast-enhanced images using 85 mL Omnipaque 350 contrast. Postcontrast imaging is performed during the combined nephrogram and excretion phase. Sagittal and coronal reformatted images were obtained on the technologist's workstation for both the precontrast and postcontrast phases. This CT examination was performed using dose optimization techniques as appropriate, variously including the following: *Automated exposure control *Adjustment of mA and/or kV according to patient size (this includes techniques or standardized protocols for targeted exams where dose is matched to indication/reason for exam; i.e. extremities or head) *Use of iterative reconstruction technique FINDINGS: LUNG BASES: The visualized lung bases are unremarkable. LIVER, GALLBLADDER, AND BILIARY TREE: The liver is normal in size, shape, and attenuation. No focal hepatic lesion or biliary ductal dilatation is present. The gallbladder is surgically absent. There are clips in the gallbladder fossa. There is mild intrahepatic bile duct dilation. PANCREAS: Unremarkable. SPLEEN: Unremarkable. ADRENAL GLANDS: Unremarkable. KIDNEYS AND URETERS: There are no stones and no hydronephrosis. There is symmetric concentration and excretion of contrast into the ureters and into the bladder. BLADDER: Unremarkable. GASTROINTESTINAL TRACT: The small and large bowel are unremarkable. The appendix is gas-filled and thin-walled extending posteriorly into the pelvis. ABDOMINAL WALL: There is a coarse area of heterotopic ossification or calcification in the subcutaneous soft tissues just inferior to the umbilicus. It measures 2.7 cm superior-inferior. No hernia is apparent. LYMPH NODES: Normal. VASCULAR: Mild atherosclerotic ossification is present. PELVIC VISCERA: Unremarkable. OSSEUS STRUCTURES: There are interbody spacers at L4-5 and L5-S1. There is osseous fusion of the facets at those levels. There are anterior osteophytes in the upper lumbar spine with mild disc space narrowing. There is moderate dextroscoliosis measuring [address]/CT urogram IMPRESSION: No kidney stones or renal mass was identified. Postsurgical changes at L4-5 and L5-S1 with interbody spacers and osseous fusion of the facets. Moderate dextroscoliosis of the lumbar spine Cholecystectomy. Electronically signed by: Derrick Barrett MD 01/02/2025 11:00 AM JOAO
[2025-01-02] MEDS: iohexoL 350 MG/ML 100 ML INFUS..BTL IV (10:43)
--- OUTSIDE RECORDS SUMMARY | 2025-01-02 12:11 | XMS_ITS | Patient Health Record ---
Author Organization [facility] Address [address] [place] [address] Care Team Providers Care Swimming Professor Name Role Phone Cristhian Marcos Jr Reason For Referral No Information Plan Of Treatment No Information
--- OUTSIDE RECORDS SUMMARY | 2025-01-02 12:11 | XMS_ITS | Encounter Summary ---
Author Organization [employer] Address [address] [facility] [address] [place] [address] Care Team Providers Care Port Drier Name Role Phone Unavailable Primary Care Provider Unavailabl e Encounter Details Date Type Department Care Team (Latest Contact Info) Description 01/19/2019 Abstract [facility] CONVERSIONS Dental, Provider, DDS Social History [...] Description 05/21/2025 9:30 AM EDT Office Visit [facility] ADULT DENTAL [address] [place] [address] Elvira Turk [address] [place] [address] 05/21/2025 10:30 AM EDT Office Visit [facility] ADULT DENTAL [address] [place] [address] Irvin Dale DDS [address] [place] [address] documented as of this encounter Visit Diagnoses Not on filedocumented in this encounter
--- OUTSIDE RECORDS SUMMARY | 2025-01-02 12:11 | XMS_ITS | Encounter Summary ---
Author Organization [employer] Address [address] [facility] [address] [place] [address] Care Team Providers Care Astrophysics Professor Name Role Phone Unavailable Primary Care Provider Unavailabl e Encounter Details Date Type Department Care Team (Latest Contact Info) Description 09/17/2020 Abstract [facility] CONVERSIONS Dental, Provider, DDS Social History [...] Description 05/21/2025 9:30 AM EDT Office Visit [facility] ADULT DENTAL [address] [place] [address] Elvira Turk [address] [place] [address] 05/21/2025 10:30 AM EDT Office Visit [facility] ADULT DENTAL [address] [place] [address] Irvin Dale DDS [address] [place] [address] documented as of this encounter Visit Diagnoses Not on filedocumented in this encounter
--- OUTSIDE RECORDS SUMMARY | 2025-01-02 12:11 | XMS_ITS | Clinical Summary ---
Author Organization [employer] Address [address] [facility] 7t [place] [address] Care Team Providers Care Transfer Driver Name Role Phone Unavailable Primary Care [...] (09/08/2023): Added automatically from request for surgery [id number] Chronic back pain 05/31/2012 Depressive disorder 05/31/2012 Fibromyositis 05/31/2012 Helicobacter pylori gastrointestinal tract infec tion 05/31/2012 Encounters Date Type Department Care Team Description 11/16/2024 10:15 AM EDT Office Visit [facility] ADULT DENTAL [address] [place] [address] Elvira Turk Abfraction (Primary Dx); Missing teeth, [...] Description 05/21/2025 9:30 AM EDT Office Visit [facility] ADULT DENTAL [address] [place] [address] Elvira Turk [address] [place] [address] 05/21/2025 10:30 AM EDT Office Visit [facility] ADULT DENTAL [address] [place] [address] Irvin Dale DDS [address] [place] [address] Health Maintenance Due Date Last Done Comments [...] Most Recently Relevant to Health Maintenance Insurance [facility]
--- OUTSIDE RECORDS SUMMARY | 2025-01-02 12:11 | XMS_ITS | Encounter Summary ---
Demographics Address [address] [place] [address] Home Phone Mobile Phone Preferred Language es Marital Status Scientologist Affiliation Unknown Race Other Race Ethnic Group Unknown Author Organization [employer] Address [address] [facility] 7t [place] [address] Care Team Providers Care Switch Box Installer Name Role Phone Unavailable Primary Care Provider Unavailabl e Reason for Visit * Reason Onset Date Comments re send medication to [facility] 09/08/2023 Encounter Details Date Type Department Care Team ([facility] Contact Info) Description 09/08/2023 Telephone [facility] ADULT DENTAL [address] [place] [address] Irvin Dale DDS [address] [place] [address] re send medication to [facility] Social History Tobacco Use Types Packs/Day Years [...] requesting medication to be sent to [facility] on [address] in [place]. Prior message request documented. She called in again today because thee medication is not in [facility]. Verified chart and medication is in [facility] pharmacy but she is in so much pain she cannot drive down and she is close to [facility]. She is looking for [facility] [address] [address] [facility]. * Telephone Encounter - Yessy Roger - 09/08/2023 12:16 PM EDT Please send medication to [facility] on [facility] documented in this encounter Plan of Treatment Upcoming Encounters Date Type Department Care Team (Late st Contact Info) Description 05/21/2025 9:30 AM EDT Office Visit [facility] ADULT DENTAL [address] [place] [address] Elvira Turk [address] [place] [address] 05/21/2025 10:30 AM EDT Office Visit [facility] ADULT DENTAL [address] [place] [address] Irvin Dale DDS [address] [place] [address] documented as of this encounter Visit Diagnoses Not on filedocumented in this encounter
== END 2025-01-02 10:05 | disposition home or self-care (01) ==
LOC: HO.CT 10:04
PROVIDERS: PCP Internal Medicine; Visit Provider Nurse Practitioner Family
DX: R31.0 Gross hematuria (principal)
CPT/HCPCS: 74178; Q9967

== ENCOUNTER → 2025-01-02 10:07 | Outpatient (BNV) | payer OTHER, SELFPAY | PROVIDERS: PCP Internal Medicine; Visit Provider Radiology Diagnostic Radiology | DX: R31.0 Gross hematuria (principal); M41.86 Other forms of scoliosis, lumbar region; Z98.1 Arthrodesis status; Z90.49 Acquired absence of other specified parts of digestive tract | CPT/HCPCS: 74178 ==

== ENCOUNTER 2025-01-09 12:10 | Outpatient (AMB) | payer OTHER, SELFPAY ==
--- NOTE | 2025-01-09 12:38 | AM.OFFVISNUR ---
Intake Visit Reasons: prolia inj Allergies mold Allergy (Intermediate, Verified 12/28/24 11:53) Hives alendronate sodium Adverse Reaction (Verified 12/28/24 11:53) Chest Pain dust Allergy (Intermediate, Uncoded 12/28/24 11:53) sneeze, watery eyes food sensitivities i.e. banana Allergy (Intermediate, Uncoded 12/28/24 11:53) rash pollens Allergy (Intermediate, Uncoded 12/28/24 11:53) sneeze, watery eyes Office Meds Prolia 60 mg/mL subcutaneous syringe Performing Provider: Dinorah Ford MD Performing Location[place] [facility] Administered by: Cyndee Huang RN on 01/09/25 12:38 Dose Route Admin Location Dispensed Lot Number Expiration Date NDC Candle Molder Machine 60 mg subcut Left posterior upper arm 1 mL [id number] 04/08/27 32460-911-80 [employer] Total Dispensed Waste 1 mL 0 % Comments: Grazyna HebertJocelin BruceRandall GERSON 12/30/24 presents today for Prolia (Denosumab) 60 mg/mL injection for the treatment of osteoporosis. The patient has not had any recent fever or illness. The injection site to be used is without erythema, edema, and is clean, dry and intact The patient tolerated the procedure well. We discussed follow-up precautions including but not limited to injection site soreness, redness, itching or swelling. The patient can call the office for consideration of treatment recommendations e.g., medication to reduce pain (e.g., Tylenol) or itching (e.g., Benadryl) if needed. Skin and mucosal symptoms such as generalized hives, itching, or flushing; swelling of lips, face, throat, or eyes. Respiratory symptoms such as nasal congestion, change in voice, sensation of throat closing, stridor, shortness of breath, wheeze, or cough. Gastrointestinal symptoms such as nausea, vomiting, diarrhea, cramping abdominal pain. Cardiovascular symptoms such as collapse, dizziness, tachycardia, hypotension are considered medical emergencies and the patient verbalizes that urgent medical attention (call 911) should be sought. The patient was observed for injection site reaction. No injection site reactions noted. The patient was discharged from the practice. Assessment & Plan Assessment & Plan Orders: Orders AMB Denosumab Injection Practice Supplied Today M85.89 - Other specified disorders of bone density and structure, multiple sites Coding
--- OUTSIDE RECORDS SUMMARY | 2025-01-09 14:15 | XMS_ITS | Encounter Summary ---
Author Organization [employer] Address [address] [facility] 7t [place] [address] Care Team Providers Care Gm/Svp Global Publisher Business Name Role Phone Unavailable Primary Care Provider Unavailabl e Encounter Details Date Type Department Care Team (Latest Contact Info) Description 09/17/2020 Abstract [facility] CONVERSIONS Dental, Provider, DDS Social [...] 9:30 AM EDT Office Visit [facility] ADULT DENTAL [address] [place] [address] Elvira Turk [address] [place] [address] 05/21/2025 10:30 AM EDT Office Visit [facility] ADULT DENTAL [address] [place] [address] Irvin Dale DDS [address] [place] [address] documented as of this encounter Visit Diagnoses Not on filedocumented in this encounter
--- OUTSIDE RECORDS SUMMARY | 2025-01-09 14:15 | XMS_ITS | Encounter Summary ---
Author Organization [employer] Address [address] [facility] [address]t [place] [address] Care Team Providers Care Anatomy And Physiology Instructor Name Role Phone Unavailable Primary Care [...] Description 05/21/2025 9:30 AM EDT Office Visit [facility] ADULT DENTAL [address] [place] [address] Elvira Turk [address] [place] [address] 05/21/2025 10:30 AM EDT Office Visit [facility] ADULT DENTAL [address] [place] [address] Irvin Dale DDS [address] [place] [address] documented as of this encounter Visit Diagnoses Not on filedocumented in this encounter
--- OUTSIDE RECORDS SUMMARY | 2025-01-09 14:15 | XMS_ITS | Clinical Summary ---
Author Organization [employer] Address [address] [facility] 7t [place] [address] Care Team Providers Care Intranet Developer Name Role Phone Unavailable Primary Care Provider [...] (09/08/2023): Added automatically from request for surgery [id number] Chronic back pain 05/31/2012 Depressive disorder 05/31/2012 Fibromyositis 05/31/2012 Helicobacter pylori gastrointestinal tract infec tion 05/31/2012 Encounters Date Type Department Care Team Description 11/16/2024 10:15 AM EDT Office Visit [facility] ADULT DENTAL [address] [place] [address] Elvira Turk Abfraction (Primary Dx); Missing teeth, [...] Description 05/21/2025 9:30 AM EDT Office Visit [facility] ADULT DENTAL [address] [place] [address] Elvira Turk [address] [place] [address] 05/21/2025 10:30 AM EDT Office Visit [facility] ADULT DENTAL [address] [place] [address] Irvin Dale DDS [address] [place] [address] Health Maintenance Due Date Last Done Comments [...] Most Recently Relevant to Health Maintenance Insurance [facility]
--- OUTSIDE RECORDS SUMMARY | 2025-01-09 14:15 | XMS_ITS | Encounter Summary ---
Demographics Address [address] [place] [address] Home Phone Mobile Phone Preferred Language es Marital Status Presybeterian Affiliation Unknown Race Other Race Ethnic Group Unknown Author Organization [employer] Address [address] [facility] [address]t [place] [address] Care Team Providers Care Chimney Construction Supervisor Name Role Phone Unavailable Primary Care Provider Unavailabl e Reason for Visit * Reason Onset Date Comments re send medication to [facility] 09/08/2023 Encounter Details Date Type Department Care Team ([facility] Contact Info) Description 09/08/2023 Telephone [facility] ADULT DENTAL [address] [place] [address] Irvin Dale DDS [address] [place] [address] re send medication to [facility] Social History Tobacco Use Types Packs/Day [...] medication to be sent to [facility] on [facility] in [place]. Prior message request documented. She called in again today because thee medication is not in [facility]. Verified chart and medication is in [facility] pharmacy but she is in so much pain she cannot drive down and she is close to [facility]. She is looking for script to be sent [facility] [address] [address] in system. * Telephone Encounter - Yessy Roger - 09/08/2023 12:16 PM EDT Please send medication to [facility] documented in this encounter Plan of Treatment Upcoming Encounters Date Type Department Care Team (Late st Contact Info) Description 05/21/2025 9:30 AM EDT Office Visit [facility] ADULT DENTAL [address] [place] [address] Elvira Turk [address] [place] [address] 05/21/2025 10:30 AM EDT Office Visit [facility] ADULT DENTAL [address] [place] [address] Irvin Dale DDS [address] [place] [address] documented as of this encounter Visit Diagnoses Not on filedocumented in this encounter
== END 2025-01-09 12:51 | disposition home or self-care (01) ==
LOC: HO.RHES 12:11
PROVIDERS: PCP Internal Medicine; Visit Provider Student in an Organized Health Care Education/Training Program
DX: M85.89 Other specified disorders of bone density and structure, multiple sites (principal)

== ENCOUNTER → 2025-01-09 12:10 | Outpatient (BNVA) | payer OTHER, SELFPAY | PROVIDERS: PCP Internal Medicine; Visit Provider Student in an Organized Health Care Education/Training Program | DX: M85.89 Other specified disorders of bone density and structure, multiple sites (principal); Z79.620 Long term (current) use of immunosuppressive biologic | CPT/HCPCS: 96372; J0897 ==

== ENCOUNTER 2025-01-31 10:12 | Outpatient (REF) | payer OTHER, SELFPAY ==
[2025-01-31 12:22] LABS: Appearance Urine Cloudy; Glucose Urine UA Negative (Negative); PH 5.5 (5.0-9.0); Specific Gravity - Urine 1.025 (1.005-1.025); UMIC TRIGGER UA YES
[2025-01-31 12:52] LABS: Resp Syncy Virus RNA Qual PCR NEGATIVE (Negative); SARS COV2 PCR INHOUSE NEGATIVE (Negative)
== END 2025-01-31 10:13 | disposition home or self-care (01) ==
LOC: HO.LNP 10:12
PROVIDERS: PCP Internal Medicine; Visit Provider Internal Medicine
DX: J10.1 Influenza due to other identified influenza virus with other respiratory manifestations (principal); R09.89 Other specified symptoms and signs involving the circulatory and respiratory systems; R31.9 Hematuria, unspecified
CPT/HCPCS: 81001; 81003; 87637; 99212

== ENCOUNTER 2025-01-31 10:12 | Outpatient (AMB) | payer OTHER, SELFPAY ==
--- OUTSIDE RECORDS SUMMARY | 2025-01-31 10:20 | XMS_ITS | Encounter Summary ---
Author Organization [employer] Address [address] [facility] [address]t [place] [address] Care Team Providers Care Business Proposal Rep Name Role Phone Unavailable Primary Care Provider Unavailabl e Encounter Details Date Type Department Care Team (Latest Contact Info) Description 01/19/2019 Abstract [facility] CONVERSIONS Dental, Provider, DDS Social History [...] 05/21/2025 9:30 AM EDT Office Visit [facility] ADULT DENTAL [address] [place] [address] Elvira Turk [address] [place] [address] 05/21/2025 10:30 AM EDT Office Visit [facility] ADULT DENTAL [address] [place] [address] Irvin Dale DDS [address] [place] [address] documented as of this encounter Visit Diagnoses Not on filedocumented in this encounter
--- OUTSIDE RECORDS SUMMARY | 2025-01-31 10:21 | XMS_ITS | Encounter Summary ---
Author Organization [employer] Address [address] [facility] 7t [place] [address] Care Team Providers Care Cloud Systems Architect Name Role Phone Unavailable Primary Care Provider Unavailabl e Encounter Details Date Type Department Care Team (Latest Contact Info) Description 09/17/2020 Abstract [facility] CONVERSIONS Dental, Provider, DDS Social History Tobacco [...] Description 05/21/2025 9:30 AM EDT Office Visit [facility] ADULT DENTAL [address] [place] [address] Elvira Turk [address] [place] [address] 05/21/2025 10:30 AM EDT Office Visit [facility] ADULT DENTAL [address] [place] [address] Irvin Dale DDS [address] [place] [address] documented as of this encounter Visit Diagnoses Not on filedocumented in this encounter
--- OUTSIDE RECORDS SUMMARY | 2025-01-31 10:21 | XMS_ITS | Patient Health Record ---
Author Organization [employer] [facility] Address [address] [place] [address] Care Team Providers Care Lobster Catcher Name Role Phone Cristhian Marcos Jr [phone] Reason For Referral No Information Plan Of Treatment No Information
--- OUTSIDE RECORDS SUMMARY | 2025-01-31 10:21 | XMS_ITS | Encounter Summary ---
Demographics Address [address] [place] [address] Home Phone Mobile Phone Preferred Language es Marital Status Anabaptist Affiliation Unknown Race Other Race Ethnic Group Unknown Author Organization [employer] Address [address] [facility] [address] [place] [address] Care Team Providers Care Side Door Worker Name Role Phone Unavailable Primary Care Provider Unavailabl e Reason for Visit * Reason Onset Date Comments re send medication to [facility] 09/08/2023 Encounter Details Date Type Department Care Team ([facility] Contact Info) Description 09/08/2023 Telephone [facility] ADULT DENTAL [address] [place] [address] Irvin Dale DDS [address] [place] [address] re send medication to [facility] Social History Tobacco Use Types Packs/Day Years [...] yesterday requesting medication to be sent to [facility] on [address] [facility] in [place]. Prior message request documented. She called in again today because thee medication is not in [facility]. Verified chart and medication is in [facility] pharmacy but she is in so much pain she cannot drive down and she is close to [facility]. She is looking for [facility] be [facility] [address] [address] [facility]. * Telephone Encounter - Yessy Roger - 09/08/2023 12:16 PM EDT Please send medication to [facility] documented in this encounter Plan of Treatment Upcoming Encounters Date Type Department Care Team (Late st Contact Info) Description 05/21/2025 9:30 AM EDT Office Visit [facility] ADULT DENTAL [address] [place] [address] Elvira Turk [address] [place] [address] 05/21/2025 10:30 AM EDT Office Visit [facility] ADULT DENTAL [address] [place] [address] Irvin Dale DDS [address] [place] [address] documented as of this encounter Visit Diagnoses Not on filedocumented in this encounter
--- OUTSIDE RECORDS SUMMARY | 2025-01-31 10:21 | XMS_ITS | Clinical Summary ---
Author Organization [employer] Address [address] [facility] [address] [place] [address] Care Team Providers Care Cutlet Maker Pork Name Role Phone Unavailable Primary Care Provider [...] (09/08/2023): Added automatically from request for surgery [id number] Chronic back pain 05/31/2012 Depressive disorder 05/31/2012 Fibromyositis 05/31/2012 Helicobacter pylori gastrointestinal tract infec tion 05/31/2012 Encounters Date Type Department Care Team Description 11/16/2024 10:15 AM EDT Office Visit [facility] ADULT DENTAL [address] [place] [address] Elvira Turk Abfraction (Primary Dx); Missing teeth, [...] Description 05/21/2025 9:30 AM EDT Office Visit [facility] ADULT DENTAL [address] [place] [address] Elvira Turk [address] [place] [address] 05/21/2025 10:30 AM EDT Office Visit [facility] ADULT DENTAL [address] [place] [address] Irvin Dale DDS [address] [place] [address] Health Maintenance Due Date Last Done Comments [...] Most Recently Relevant to Health Maintenance Insurance [facility]
--- NOTE | 2025-01-31 10:26 | MHC.PC.OV ---
Vital Signs 01/31/25 10:27 Height 5 ft 1 in Weight 114 lb 6 oz BMI 21.6 BP 110/68 Blood Pressure Location Lt brachial Position Sitting Pulse 86 Pulse Source Pulse Oximeter Temp 97.1 F Temp Source Temporal Artery Scan Pulse Oximetry (%) 96 Oxygen Delivery Method Room Air Intake Visit Reasons: Flu symptoms, cough, back and buttocks pain Intake Note: Patient is here to follow up on Flu symptoms (Body pains, congestion, headache, high temp on 01/27, 01/28), cough, fatigue back and buttock pain. Home covid was neg. Complain of pain and burning sensation when urinating. 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 banana Allergy (Intermediate, Uncoded 01/31/25 10:26) rash pollens Allergy (Intermediate, Uncoded 01/31/25 10:26) sneeze, watery eyes Medication List - Last Reconciled 01/31/25 by Jeff Atkins MD albuterol sulfate 90 mcg/actuation 2 puffs inhalation Q6-8H 30 days alprazolam 0.5 mg PO BID PRN 30 days bisacodyl (Dulcolax (bisacodyl)) 10 mg (2 x 5 mg) PO BEDTIME calcium carbonate-vitamin D3 600 mg-12.5 mcg (500 unit) (Calcium with Vit D3) 1 cap PO .once a day 90 days cyclobenzaprine 5 mg PO BID PRN 30 days denosumab (Prolia) 60 mg subcut [id number] duloxetine 60 mg PO BID estradiol 0.01%(0.1mg/gram) Apply a pea-sized amount to urethra daily x1 month and then 3 times per week thereafter 90 days gabapentin 600 mg PO TID hydrocortisone 1% (Anti-Itch (hydrocortisone)) 1 appl topical BID PRN 30 days linaclotide (Linzess) 290 mcg PO QAM 30 days magnesium oxide 500 mg PO DAILY 30 days nicotine 1 patch transdermal DAILY 28 days oxycodone 10 mg PO Q6H PRN 30 days pantoprazole 40 mg PO BID quetiapine 100 mg PO BEDTIME 90 days quetiapine 400 mg PO BEDTIME 90 days sulfamethoxazole-trimethoprim 800-160 mg (Bactrim DS) 1 tab PO BID 10 days Tobacco use date assessed: 01/31/25 Fall risk assessment: No Falls in past year Last assessed Fall Risk: 01/31/25 Dental Screening Dental Screen Date: 11/21/24 HPI HPI Comments History of Present Illness Details The patient is a 69-year-old female presenting with a new onset of severe left hip pain, cough and flu like symptoms since four days. She describes the pain as a burning sensation on the skin of her scalp, the sides of her back, and her buttocks. The pain is severe enough that she has been in bed for three days, as she is unable to sit or lay on her back. She also reports associated pain in her right shoulder, which she attributes to lying on one side constantly. She has tried using icing and heating pads without relief. The patient has a history of arthritis but states this new pain is different from her usual joint pain. She has a history of stomach problems and cannot take ibuprofen. She reports developing a rash after a past surgery when she was given Motrin and Tylenol together. The patient also reports having a cough and thought she might have the flu, but a home COVID test was negative. Her current medications include oxycodone 10 mg, quetiapine 100 mg and 400 mg, cyclobenzaprine 5 mg as needed, gabapentin 600 mg three times a day, and Cymbalta. She sometimes loses her balance while walking. For over a year, she has been dealing with hematuria, for which she was scheduled to have a cystoscopy, but she had to cancel the procedure due to the current pain. A CT scan was performed on January 02, which showed no issues with her kidneys or bladder. She has a history of frequent urinary tract infections. She denies fever, chills. [facility] Medical History TMJ (temporomandibular joint disorder) [place] Mild recurrent major depression SONALI (generalized anxiety disorder) Polyarthralgia Right hip pain Right shoulder pain Depression with anxiety Mild asthma Chest pain Dyslipidemia Fibromyalgia Surgical History H/O bilateral salpingectomy H/O bilateral oophorectomy History of tooth extraction TMJ derangement History of mammogram History of bunionectomy History of tubal ligation History of laparoscopic cholecystectomy History of lumbar fusion History of section History of esophagogastroduodenoscopy (EGD) Hx of colonoscopy Family History Father Heart failure Mother Heart problem Brother Stomach tumor (benign) Brother Kidney problem Stroke Brother Myocardial infarction Brother Cerebral brain hemorrhage Heart problem Social History Housing: Apartment Alcohol intake: never Patient Tobacco Use Status: Current everyday Tobacco user Tobacco use type: Cigarette Cigarette Packs Per Day: 0.5 Cigarettes Per Day: 2 e-Cigarette/Vaping Use: Never Used Second Hand Smoke Exposure: Yes service: No Current occupational status: unemployed Cognitive needs: No Hearing needs: No Vision needs: Yes (Glasses) Questionnaire Thrive Questionnaire Date Thrive assessed: 11/21/24 I am a: Patient What is your living situation today?: I have a steady place to live Within the past 12 months, did the food you bought not last and you didn't have the money to get more?: I choose not to answer this question Within the past 12 months, did you worry whether your food would run out before you got money to buy more?: I choose not to answer this question Do you have trouble paying for medicines?: No Do you have trouble getting transportation to medical appointments?: Yes Do you have trouble paying your heating and electricity bill?: I choose not to answer this question Do you have trouble taking care of your child, family member or friend?: I choose not to answer this question Do you have trouble with day-to-day activities such as bathing, preparing meals, shopping, managing finances, etc.?: No Are you currently unemployed and looking for a job?: I choose not to answer this question Are you interested in more education?: I choose not to answer this question THRIVE Score: 1 SONALI-7 AMB Questionnaire SONALI-7 Date SONALI - 7 assessed: 11/21/24 Source: Developed by Drs. Chago Baer, Kassandra Alexander, Prashanth Cisse and colleagues, with an educational jhonatan from [employer]. Review of Systems Const Details: As per HPI. Physical exam (Primary Care) Vital Signs: Last Vital Signs Temp 97.1 F 01/31/25 10:27 Pulse 86 01/31/25 10:27 BP 110/68 01/31/25 10:27 Pulse Ox 96 01/31/25 10:27 Oxygen Delivery Method Room Air 01/31/25 10:27 BMI result Body Mass Index 21.6 Tobacco/Smoking Status: Tobacco use Status Tobacco use date assessed 01/31/25 01/31/25 10:39 Patient Tobacco Use Status Current everyday Tobacco 01/31/25 10:39 Tobacco use type Cigarette 01/31/25 10:39 e-Cigarette/Vaping Use Never Used 01/31/25 10:39 Thrive Assessment: Date of Thrive Assessment Date Thrive assessed 11/21/24 01/31/25 10:39 Const Other: Pertinent findings are in BOLD GENERAL APPEARANCE NAD, activity normal for age, well developed/ well nourished, no cyanosis, pallor, or diaphoresis. EYES lids/conjunctiva normal. EARS/NOSE/THROAT Mucous membranes moist, nares normal, lips/teeth normal uvula midline without oral pharyngeal erythema, exudate or swelling TMs normal bilaterally. No lymphangitis/lymphedema. HEAD/NECK normocephalic atraumatic, no facial trauma, neck is supple. RESPIRATORY respiratory effort normal, speaks in full sentences, no tripod position, no accessory muscle use. Lungs clear to auscultation without rhonchi, wheezes, rales CARDIAC Regular rate and rhythm, no edema. ABDOMINAL Soft, ND/NT. No evidence of fluid wave. No pulsatile masses on exam, rebound tenderness, Zazueta sign or pain over Mcburney's point. MUSCLES/EXTREMITIES No abnormal range of motion, no swelling. SKIN Warm, pink and dry. No rashes, dermatoses, petechiae or lesions. NEUROLOGICAL Speech is clear and appropriate. Normal level of consciousness. Gait and coordination are normal. 5/5 strength in all extremities. PSYCH Normal mood and affect. Judgement/competence is appropriate Results AMB Urinalysis, Automated UA Leukoctes 3 Patricia/uL Last Edit by CY Bunch on 01/31/25 10:43 UA Nitrite Positive Last Edit by Laurie Barfield, RMA on 01/31/25 10:43 UA Urobilinogen 0 mg/dL Last Edit by Laurie Barfield, A on 01/31/25 10:43 UA Protein 1 mg/dL Last Edit by Laurie Barfield, RMA on 01/31/25 10:43 UA pH 6.0 Last Edit by Laurie Barfield, RMA on 01/31/25 10:43 UA Blood 1 Ruiz/uL Last Edit by Laurie Barfield, RMA on 01/31/25 10:[address] [place] 1.020 Last Edit by Laurie Barfield, A on 01/31/25 10:43 UA Ketone Positive Last Edit by Laurie Barfield, RMA on 01/31/25 10:43 UA Bilirubin 1 mg/dL Last Edit by Laurie Barfield A on 01/31/25 10:43 UA Glucose 0 mg/dL Last Edit by Laurie Barfield A on 01/31/25 10:43 Results Reviewed Results Reviewed: Laboratory Last Values Urine pH (Auto) 6.0 01/31/25 10:[address] [place] (Auto) 1.020 01/31/25 10:41 Urine Protein (Auto) 1 mg/dL L* 01/31/25 10:41 Glucose (UA)(Auto) 0 mg/dL 01/31/25 10:41 Urine Ketones (Auto) Positive 01/31/25 10:41 Urine Blood (Auto) 1 Ruiz/uL L* 01/31/25 10:41 Urine Nitrite (Auto) Positive 01/31/25 10:41 Urine Bilirubin (Auto) 1 mg/dL 01/31/25 10:41 Urine Urobilinogen (Auto) 0 mg/dL 01/31/25 10:41 Leukocyte Esterase (Auto) 3 Patricia/uL H* 01/31/25 10:41 Coding Level of Care Code Est Pt Level 4 (54461) Diagnoses Hematuria R31.9 Cough R05.9 Hip pain M25.559 Time Spent (min) 30 Assessment & Plan Assessment & Plan (1) Hematuria: Code(s): R31.9 - Hematuria, unspecified Category: Medical Plan: - Clinic UA with 3+ Eunice Esterase, +blood. - the patient has symptomatic pain consistent with her prior UTIs and a history of recurrent infections. - A prescription for nitrofurantoin 100 mg twice daily for 5 days will be provided. (2) Cough: Code(s): R05.9 - Cough, unspecified Category: Medical Plan: - The patient's pain syndrome may be related to a viral infection. - A nasal swab for COVID-19, influenza, and RSV was collected, with results pending. - Recommended symptomatic treatment with [id number] cold and flu medications as needed. (3) Hip pain: Code(s): M25.559 - Pain in unspecified hip Category: Medical Plan: - The patient's burning pain that is unresponsive to oxycodone is suspicious for prodromal herpes zoster. - Treatment will be symptomatic with a prescription for a lidocaine patch and diclofenac gel. - The patient was advised to try low-dose Tylenol for pain and monitor for a rash due to a previous possible reaction. - A follow-up appointment is scheduled in one week to re-evaluate the pain and assess for rash development. Plan I discussed with the patient that her severe, burning pain is highly suspicious for shingles (herpes zoster), even without a visible rash at this time. We will treat her symptoms with a lidocaine patch and diclofenac gel. I advised her to try Tylenol, starting with a low dose, and to monitor for any rash due to a potential past sensitivity. We performed a test for COVID-19, flu, and RSV, and I explained that a viral infection could be the cause of her systemic symptoms. I also addressed her urinary symptoms; although the urine test did not show a definitive infection, given her history and symptoms, I am prescribing a 5-day course of nitrofurantoin, an antibiotic different from what she has taken recently. We will follow up in one week to re-evaluate her pain and determine if further diagnostics, such as an X-ray, are needed. Orders: Orders AMB Urinalysis Automated Today Z13.9 - Encounter for screening, unspecified SARS-CoV2/FLU/RSV Today R09.89 - Other specified symptoms and signs involving the circulatory and respiratory systems, R31.9 - Hematuria, unspecified UA and rflx microscopic Today R31.9 - Hematuria, unspecified Medications: New lidocaine 4% 1 patch topical BID PRN 10 ea 0RF pain diclofenac sodium 1% (Voltaren Arthritis Pain) apply to single knee, ankle, foot; for foot includes sole/toes/top of foot 4 grams topical QID 100 grams 0RF nitrofurantoin macrocrystal must administer with a meal/food 100 mg PO BID 10 caps 0RF
[2025-01-31 10:27] VITALS: BP 110/68; PULSE 86; TEMP 36.2; O2SAT 96; BMI 21.6
== END 2025-01-31 11:06 | disposition home or self-care (01) ==
LOC: HO.HMCH 10:13
PROVIDERS: PCP Internal Medicine; Visit Provider Internal Medicine
DX: R31.9 Hematuria, unspecified (principal); R05.9 Cough, unspecified; M25.559 Pain in unspecified hip; Z13.9 Encounter for screening, unspecified

== ENCOUNTER 2025-02-07 09:09 | Outpatient (AMB) | payer OTHER, SELFPAY ==
--- NOTE | 2025-02-07 09:19 | A.OFFPC_ITS ---
Vital Signs 02/07/25 09:20 Height 5 ft 1 in Weight 118 lb 6 oz BMI 22.4 BP 126/62 Blood Pressure Location Lt brachial Position Sitting Respiration 18 Pulse 95 Pulse Source Pulse Oximeter Temp Source Temporal Artery Scan Pulse Oximetry (%) 97 Oxygen Delivery Method Room Air Intake Visit Reasons: Low back pain. Family Life Counselor Required: No Accompanied by: Self / Same As Patient Allergies mold Allergy (Intermediate, Verified 02/07/25 09:22) Hives alendronate sodium Adverse Reaction (Verified 02/07/25 09:22) Chest Pain dust Allergy (Intermediate, Uncoded 01/31/25 10:26) sneeze, watery eyes food sensitivities i.e. banana Allergy (Intermediate, Uncoded 01/31/25 10:26) rash pollens Allergy (Intermediate, Uncoded 01/31/25 10:26) sneeze, watery eyes Medication List - Last Reconciled 02/07/25 by Jeff Atkins MD albuterol sulfate 90 mcg/actuation 2 puffs inhalation Q6-8H 30 days alprazolam 0.5 mg PO BID PRN 30 days bisacodyl (Dulcolax (bisacodyl)) 10 mg (2 x 5 mg) PO BEDTIME calcium carbonate-vitamin D3 600 mg-12.5 mcg (500 unit) (Calcium with Vit D3) 1 cap PO .once a day 90 days cyclobenzaprine 5 mg PO BID PRN 30 days denosumab (Prolia) 60 mg subcut [id number] diclofenac sodium 1% (Voltaren Arthritis Pain) 4 grams topical QID duloxetine 60 mg PO BID estradiol 0.01%(0.1mg/gram) Apply a pea-sized amount to urethra daily x1 month and then 3 times per week thereafter 90 days gabapentin 600 mg PO TID hydrocortisone 1% (Anti-Itch (hydrocortisone)) 1 appl topical BID PRN 30 days lidocaine 4% 1 patch topical BID PRN linaclotide (Linzess) 290 mcg PO QAM 30 days magnesium oxide 500 mg PO DAILY 30 days nicotine 1 patch transdermal DAILY 28 days nitrofurantoin macrocrystal 100 mg PO BID oxycodone 10 mg PO Q6H PRN 30 days pantoprazole 40 mg PO BID quetiapine 100 mg PO BEDTIME 90 days quetiapine 400 mg PO BEDTIME 90 days sulfamethoxazole-trimethoprim 800-160 mg (Bactrim DS) 1 tab PO BID 10 days Tobacco use date assessed: 02/07/25 Fall risk assessment: No Falls in past year Last assessed Fall Risk: 02/07/25 Dental Screening Dental Screen Date: 02/07/25 Did you have a dental visit in the last 12 months?: Yes Did you have a dental problem in the last 6 months where you did not have access to dental care?: No Was dental information given to patient?: Patient has dentist HPI HPI Comments History of Present Illness Details The patient is a 69-year-old female with PMH of recurrent UTI, ovarian cyst s/p salpingo-oopherectomy presenting with multiple complaints that began after she contracted influenza over a week ago. She reports new onset, severe pain in her right buttock, which makes it difficult to sit or lie on her back, and pain in her right shoulder blade. She states this pain is different from her pre-existing neuropathy and sciatic nerve damage. She was seen in our clinic one week ago for cough and lower back pain She tested positive for Flu A and she has been using OTC medications such as Tylenol and Aleeve which helped with her symptoms. She continues to have a cough for which Dayquill has been helping. Her UA came back positive for UTI and she completed a nitrofurantoin course which the patient reports helped with her symptoms. Associated symptoms include a tender, burning sensation on her scalp, making it difficult to brush her hair, and a cough described as feeling like choking. She has been treating the cough with DayQuil. For the pain, she has used Lidocaine patches, Icy Hot, and Tylenol with some relief, and takes oxycodone once a day as prescribed by her PCP. Her relevant past medical history includes a long history of ovarian cysts, which led to a bilateral salpingo-oophorectomy in May to reduce cancer risk. A pelvic ultrasound on January [address] scan on January 02 showed post-surgical changes, moderate dextroscoliosis of the lumbar spine, and facet fusions, but no kidney stones or mass. [facility] Medical History TMJ (temporomandibular joint disorder) [place] Mild recurrent major depression SONALI (generalized anxiety disorder) Polyarthralgia Right hip pain Right shoulder pain Depression with anxiety Mild asthma Chest pain Dyslipidemia Fibromyalgia Surgical History H/O bilateral salpingectomy H/O bilateral oophorectomy History of tooth extraction TMJ derangement History of mammogram History of bunionectomy History of tubal ligation History of laparoscopic cholecystectomy History of lumbar fusion History of section History of esophagogastroduodenoscopy (EGD) Hx of colonoscopy Family History Father Heart failure Mother Heart problem Brother Stomach tumor (benign) Brother Kidney problem Stroke Brother Myocardial infarction Brother Cerebral brain hemorrhage Heart problem Social History Housing: Apartment Alcohol intake: never Patient Tobacco Use Status: Current everyday Tobacco user Tobacco use type: Cigarette Cigarette Packs Per Day: 0.5 Cigarettes Per Day: 2 e-Cigarette/Vaping Use: Never Used Second Hand Smoke Exposure: Yes service: No Current occupational status: unemployed Cognitive needs: No Hearing needs: No Vision needs: Yes (Glasses) Questionnaire Thrive Questionnaire Date Thrive assessed: 02/07/25 I am a: Patient What is your living situation today?: I have a steady place to live Within the past 12 months, did the food you bought not last and you didn't have the money to get more?: I choose not to answer this question Within the past 12 months, did you worry whether your food would run out before you got money to buy more?: I choose not to answer this question Do you have trouble paying for medicines?: No Do you have trouble getting transportation to medical appointments?: Yes Do you have trouble paying your heating and electricity bill?: I choose not to answer this question Do you have trouble taking care of your child, family member or friend?: I choose not to answer this question Do you have trouble with day-to-day activities such as bathing, preparing meals, shopping, managing finances, etc.?: No Are you currently unemployed and looking for a job?: I choose not to answer this question Are you interested in more education?: I choose not to answer this question THRIVE Score: 1 SONALI-7 AMB Questionnaire SONALI-7 Date SONALI - 7 assessed: 11/21/24 Source: Developed by Drs. Chago Baer, Kassandra Alexander, Prashanth Cisse and colleagues, with an educational jhonatan from [employer]. Review of Systems Const Details: As per HPI. Physical exam (Primary Care) Vital Signs: Last Vital Signs Pulse 95 02/07/25 09:20 Resp 18 02/07/25 09:20 BP 126/62 02/07/25 09:20 Pulse Ox 97 02/07/25 09:20 Oxygen Delivery Method Room Air 02/07/25 09:20 BMI result Body Mass Index 22.4 Tobacco/Smoking Status: Tobacco use Status Tobacco use date assessed 02/07/25 02/07/25 09:32 Patient Tobacco Use Status Current everyday Tobacco 02/07/25 09:32 Tobacco use type Cigarette 02/07/25 09:32 e-Cigarette/Vaping Use Never Used 02/07/25 09:32 Thrive Assessment: Date of Thrive Assessment Date Thrive assessed 02/07/25 02/07/25 09:32 Const Other: Pertinent findings are in BOLD GENERAL APPEARANCE NAD, activity normal for age, well developed/ well nourished, no cyanosis, pallor, or diaphoresis. EYES lids/conjunctiva normal. EARS/NOSE/THROAT Mucous membranes moist, nares normal, lips/teeth normal uvula midline without oral pharyngeal erythema, exu date or swelling TMs normal bilaterally. No lymphangitis/lymphedema. HEAD/NECK normocephalic atraumatic, no facial trauma, neck is supple. RESPIRATORY respiratory effort normal, speaks in full sentences, no tripod position, no accessory muscle use. Lungs clear to auscultation without rhonchi, wheezes, rales CARDIAC Regular rate and rhythm, no edema. ABDOMINAL Soft, ND/NT. No evidence of fluid wave. No pulsatile masses on exam, rebound tenderness, Zazueta sign or pain over Mcburney's point. MUSCLES/EXTREMITIES No abnormal range of motion, no swelling. SKIN Warm, pink and dry. No rashes, dermatoses, petechiae or lesions. NEUROLOGICAL Speech is clear and appropriate. Normal level of consciousness. Gait and coordination are normal. 5/5 strength in all extremities. PSYCH Normal mood and affect. Judgement/competence is appropriate Coding Level of Care Code Est Pt Level 4 (06797) Diagnoses Flu J11.1 Myalgia M79.10 UTI (urinary tract infection) N39.0 Chronic pruritic rash in adult L29.89 Assessment & Plan Assessment & Plan (1) Flu: Code(s): J11.1 - Influenza due to unidentified influenza virus with other respiratory manifestations Category: Medical Plan: - The patient's new onset pain and scalp tenderness are likely exacerbated by the systemic effects of the influenza virus. - Recovery can take up to 2-3 weeks. - Continue symptomatic care with DayQuil for cough, rest, and sleep. - A repeat nasal swab for influenza was performed today. (2) Myalgia: Code(s): M79.10 - Myalgia, unspecified site Category: Medical Plan: - The new right buttock and shoulder pain is likely musculoskeletal and may be worsened by changes in positioning due to the illness. - Continue current treatment regimen including Vintan (lidocaine) patches, Tylenol, and Icy Hot as the patient found it helpful. - Advised to perform gentle stretching and change positions frequently. - If pain persists after the influenza resolves, schedule a follow-up appointment. (3) UTI (urinary tract infection): Code(s): N39.0 - Urinary tract infection, site not specified Category: Medical Plan: - Patient completed a course of nitrofurantoin. - She continues to have mild symptoms. - Advised the patient to check with her urologist regarding her symptoms. (4) Chronic pruritic rash in adult: Code(s): L29.89 - Other pruritus Category: Medical Plan: - The rash may be exacerbated by the current systemic illness. - Continue to monitor; no changes in management were made at this visit. Plan I explained to the patient that her new pain symptoms and scalp tenderness are likely connected to and exacerbated by her influenza infection. I advised her to continue with the current pain management strategies, including patches, Tylenol, Icy Hot, and stretching, and to give it some time to improve as her viral illness resolves. I emphasized the importance of rest and not overexerting herself to allow for recovery. We discussed her upcoming travel, and I informed her that a repeat flu swab was performed. I instructed her to schedule a follow- up appointment if her pain does not improve.
[2025-02-07 09:20] VITALS: BP 126/62; PULSE 95; RESP 18; O2SAT 97; BMI 22.4
--- OUTSIDE RECORDS SUMMARY | 2025-02-07 09:21 | XMS_ITS | Encounter Summary ---
Demographics Address [address] [place] [address] Home Phone Mobile Phone Preferred Language es Marital Status Zoroastrianism Affiliation Unknown Race Other Race Ethnic Group Unknown Author Organization [employer] Address [address] [place] [address] Care Team Providers Care Federal Appellate Law Clerk Name Role Phone Unavailable Primary Care Provider Unavailabl e Reason for Visit * Reason Onset Date Comments re send medication to [facility] 09/08/2023 Encounter Details Date Type Department Care Team ([facility] Contact Info) Description 09/08/2023 Telephone [facility] [address] [place] [address] Irvin Dale DDS [address] [place] [address] re send medication to [facility] Social History Tobacco Use Types Packs/Day [...] requesting medication to be sent to [facility] [address] in [place]. Prior message request documented. She called in again today because thee medication is not in [facility]. Verified chart and medication is in [facility] pharmacy but she is in so much pain she cannot drive down and she is close to [facility] She is looking for script to be sent to [facility] [address] P harmacy [facility] been [facility] [address] in system. * Telephone Encounter - Yessy Roger - 09/08/2023 12:16 PM EDT Please send medication to [facility] [address] documented in this encounter Plan of Treatment Upcoming Encounters Date Type Department Care Team (Late st Contact Info) Description 05/21/2025 9:30 AM EDT Office Visit [facility] [address] [place] [address] Elvira Turk [address] [place] [address] 05/21/2025 10:30 AM EDT Office Visit [facility] [address] [place] [address] Irvin Dale DDS [address] [place] [address] documented as of this encounter Visit Diagnoses Not on filedocumented in this encounter
--- OUTSIDE RECORDS SUMMARY | 2025-02-07 09:21 | XMS_ITS | Clinical Summary ---
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 Helicobacter pylori gastrointestinal tract infec tion 05/31/2012 Encounters Date Type Department Care Team Description 11/16/2024 10:15 AM EDT Office Visit [facility] [address] [place] [address] Elvira Turk Abfraction (Primary Dx); Missing teeth, [...] 9:30 AM EDT Office Visit [facility] [address] [place] [address] Elvira Turk [address] [place] [address] 05/21/2025 10:30 AM EDT Office Visit [facility] [address] [place] [address] Irvin Dale DDS [address] [place] [address] Health Maintenance Due Date Last Done Comments [...] Recently Relevant to Health Maintenance Insurance [facility]
--- OUTSIDE RECORDS SUMMARY | 2025-02-07 09:21 | XMS_ITS | Encounter Summary ---
Author Organization [employer] Address [address] [place] [address] Care Team Providers Care Batting Machine Operator Insulation Name Role Phone Unavailable Primary Care Provider Unavailabl e Encounter Details Date Type Department Care Team (Latest Contact Info) Description 01/19/2019 Abstract [facility] CONVERSIONS Dental, Provider, DDS Social History Tobacco [...] Description 05/21/2025 9:30 AM EDT Office Visit [facility]ULT [facility] [address] [place] [address] Elvira Turk [address] [place] [address] 05/21/2025 10:30 AM EDT Office Visit [facility] [address] [place] [address] Irvin Dale DDS [address] [place] [address] documented as of this encounter Visit Diagnoses Not on filedocumented in this encounter
--- OUTSIDE RECORDS SUMMARY | 2025-02-07 09:21 | XMS_ITS | Patient Health Record ---
Author Organization [facility] [facility] Address [address] [place] [address] Care Team Providers Care Detective Name Role Phone Cristhian Marcos Jr Reason For Referral No Information Plan Of Treatment No Information
--- OUTSIDE RECORDS SUMMARY | 2025-02-07 09:21 | XMS_ITS | Encounter Summary ---
Author Organization [employer] Address [address] [place] [address] Care Team Providers Care Padded Box Sewer Name Role Phone Unavailable Primary Care Provider Unavailabl e Encounter Details Date Type Department Care Team (Latest Contact Info) Description 09/17/2020 Abstract [facility] CONVERSIONS Dental, Provider, DDS Social History [...] Description 05/21/2025 9:30 AM EDT Office Visit [facility]ULT [facility] [address] [place] [address] Elvira Turk [address] [place] [address] 05/21/2025 10:30 AM EDT Office Visit [facility] [address] [place] [address] Irvin Dale DDS [address] [place] [address] documented as of this encounter Visit Diagnoses Not on filedocumented in this encounter
== END 2025-02-07 09:58 | disposition home or self-care (01) ==
LOC: HO.HMCH 09:10
PROVIDERS: PCP Internal Medicine; Visit Provider Internal Medicine
DX: J11.1 Influenza due to unidentified influenza virus with other respiratory manifestations (principal); M79.10 Myalgia, unspecified site; N39.0 Urinary tract infection, site not specified; L29.89 Other pruritus